=== PATIENT | male | born 1970 | race Caucasian/White ===

== ENCOUNTER 2023-01-21 10:52 | Outpatient (OUT) | payer OTHER, SELFPAY ==
--- NOTE | 2023-01-21 11:06 | ECG_ITS ---
[facility] Test Date: 2023-01-21 Pat Name: REINA MOULTON Department: Room: - Gender: Male Car Hop: : 1970 Requested By: ESCOBAR WILSON Order Number: [id number] Reading MD: HAFSA HEWITT Measurements Intervals [place] Rate: 70 P: -34 MO: 152 QRS: -29 QRSD: 121 T: 22 QT: 410 QTc: 443 Interpretive Statements SINUS RHYTHM BORDERLINE LEFT AXIS DEVIATION [QRS AXIS < -20] MODERATE INTRAVENTRICULAR CONDUCTION DELAY [110+ ms QRS DURATION] No previous ECG available for comparison Electronically Signed On 01-22-2023 14:33:34 EDT by HAFSA HEWITT
--- NOTE | 2023-01-21 11:56 | P.GSHP_ITS ---
History of Present Illness History of Present Illness Chief complaint: Maxillary Sinusitis Narrative: Patient presents for preadmission testing. The patient reports sinus drainage, sinus pressure, headache, and hearing loss which has been ongoing for quite some time. The patient was originally scheduled for this procedure in October of this year, however the procedure was postponed due to an abnormal EKG and dyspnea on exertion. We are awaiting documentation that the patient has been evaluated for these problems. The patient denies fever, syncope, dizziness, nausea, vomiting, or any other complaints. Review of Systems ROS Narrative REVIEW OF SYSTEMS: Negative except as stated in HPI, ten or more systems reviewed. Constitutional: No fever , chills, weakness ENT: No sore throat or epistaxis Cardiovascular: No edema, chest pain, palpitations; Admits to shortness of breath with exertion Respiratory: No cough, or wheezing Musculoskeletal: No joint pain or swelling Gastrointestinal: No abdominal pain, constipation, or vomiting Genitourinary: No dysuria or hematuria Neurological: No numbness, tingling, weakness, or headache Psychiatric: No mood changes PFSH PFSH Medical History (Updated 01/21/23 @ 11:33 by Lupe Garcia NP) Surgical History (Updated 01/21/23 @ 11:30 by Lupe Garcia NP) Family History (Updated 01/21/23 @ 11:30 by Lupe Garcia NP) Other Family history of diabetes mellitus Family history of heart disease Family history of hypertension Family history of myocardial infarction Family history of skin cancer Family history of stroke Social History (Updated 01/21/23 @ 11:26 by Lupe Garcia NP) Within the past year, how often did you have a drink containing alcohol: monthly or less Smoking status: Never smoker Non-prescribed substance use: denies use Previous occupational history: [employer] Highest level of school completed/degree received: high school graduate Meds Home Medications and Allergies Home Medications Medication Instructions Recorded Confirmed Type aripiprazole 20 mg tablet 20 mg PO QDAY 01/21/23 01/21/23 History calcium carbonate 600 mg-vitamin 1 tab PO DAILY 01/21/23 01/21/23 History D3 5 mcg (200 unit) tablet (Calcium 600 + D(3)) cholecalciferol (vitamin D3) 1,250 50,000 unit PO .twice weekly 01/21/23 01/21/23 History mcg (50,000 unit) capsule cholecalciferol (vitamin D3) 25 1,000 unit PO DAILY 01/21/23 01/21/23 History mcg (1,000 unit) capsule clonazepam 0.5 mg tablet 0.5 mg PO Q12H 01/21/23 01/21/23 History diphenoxylate-atropine 2.5 1 tab PO Q6H 01/21/23 01/21/23 History mg-0.025 mg tablet (Lomotil) finasteride 5 mg tablet 5 mg PO QDAY 01/21/23 01/21/23 History guselkumab 100 mg/mL subcutaneous mg subcut 01/21/23 History auto-injector (Tremfya) ibuprofen 800 mg tablet (IBU) 800 mg PO Q12H 01/21/23 01/21/23 History imipramine HCl 25 mg tablet 25 mg PO BID 01/21/23 01/21/23 History magnesium citrate 100 mg capsule 100 mg PO DAILY 01/21/23 01/21/23 History metaxalone 800 mg tablet 800 mg PO TID 01/21/23 01/21/23 History mirabegron 50 mg tablet,extended 50 mg PO Q24H 01/21/23 01/21/23 History release 24 hr (Myrbetriq) potassium gluconate 595 mg (99 mg) 595 mg PO DAILY 01/21/23 01/21/23 History tablet solifenacin 10 mg tablet 5 mg PO QDAY 01/21/23 01/21/23 History tamsulosin 0.4 mg capsule 0.4 mg PO Q24H 01/21/23 01/21/23 History Allergies Allergy/AdvReac Type Severity Reaction Status Date / Time No Known Drug Allergies Allergy Verified 01/21/23 11:17 Exam Narrative Exam Narrative: Constitutional: Awake, alert, comfortable, well-appearing, nontoxic, interactive, vital signs as charted Head: Normocephalic, atraumatic Eyes: Conjunctiva and lids normal to inspection, pupils normal ENT: Naris congested bilaterally, posterior oropharynx clear, oral mucosa moist Neck: Supple, normal appearance, normal range of motion, no meningeal signs, no lymphadenopathy Respiratory: No respiratory distress, breath sounds clear Cardiovascular: Regular rate and rhythm, strong and regular heart tones Musculoskeletal: Normal gait, no swelling or edema Skin: No rashes or induration, no lesions, only visible skin inspected Neuro: No neurological deficits, normal sensation Psychiatric: Oriented ?3, Flat affect Assessment and Plan Assessment and Plan (1) Deviated septum: (2) Chronic maxillary sinusitis: (3) Nasal turbinate hypertrophy: Plan Bilateral middle meatus antrostomy, bilateral inferior turbinate submucosal resection, possible septoplasty scheduled with Dr. Salazar 02/01/2023.
[2023-01-21 12:28] LABS: Anion Gap 10.6; BUN Creatinine Ratio 12.5; Calcium 8.8 mg/dL (8.5-10.1); Carbon Dioxide 31.4 mmol/L (21.0-32.0); Chloride 103 mmol/L (98-107); Estimated GFR (African America >60 (>=60); Estimated GFR (Non-African Ame >60 (>=60); Glucose 99 mg/dL (74-106); Sodium 141 mmol/L (136-145)
[2023-01-21 12:32] LABS: Basophils Percent Auto 0.4 % (0.2-2.0); Eosinophils Absolute Auto 0.6 10^3/uL (0.0-0.7); Eosinophils Percent Auto 6.1 % (0.9-7.0); Hematocrit 35.5 % (42.0-54.0); Immature Granulocytes Abs Auto 0.04 10^3/uL (0.00-0.03); Immature Granulocytes Pct Auto 0.4 % (0.0-0.5); Lymphocytes Absolute Auto 1.5 10^3/uL (1.2-3.8); Lymphocytes Percent Auto 15.7 % (20.5-60.0); Mean Corpuscular Hemoglobin 23.9 pg (25.9-34.0); Monocytes Absolute Auto 0.7 10^3/uL (0.3-0.8); Monocytes Percent Auto 7.1 % (1.7-12.0); Neutrophils Absolute Auto 6.8 10^3/uL (1.4-6.5); Neutrophils Percent Auto 70.3 % (43.0-75.0); Platelet Count 405 10^3/uL (150-450); Red Blood Count 4.61 10^6/uL (4.70-6.10); Red Cell Distribution Width 15.9 % (11.0-15.0); White Blood Count 9.6 10^3/uL (4.0-11.0)
== END 2023-01-21 10:53 | disposition home or self-care (01) ==
PROVIDERS: Otolaryngology; PCP Internal Medicine
DX: Z01.812 Encounter for preprocedural laboratory examination (principal); Z01.810 Encounter for preprocedural cardiovascular examination; Z01.818 Encounter for other preprocedural examination; J32.0 Chronic maxillary sinusitis; E11.9 Type 2 diabetes mellitus without complications
CPT/HCPCS: 36415; 80048; 85025; 93005; G0463

== ENCOUNTER 2023-03-04 11:35 | Outpatient (OUT) | payer OTHER, SELFPAY ==
[2023-10-07 09:42] LABS: QuantiFERON-TB Gold Plus NEGATIVE
== END 2023-03-04 11:36 | disposition home or self-care (01) ==
LOC: LAB 11:36
PROVIDERS: PCP Internal Medicine
DX: L40.0 Psoriasis vulgaris (principal); Z79.899 Other long term (current) drug therapy
CPT/HCPCS: 36415; 86480

== ENCOUNTER 2023-03-15 09:07 | Outpatient (OUT) | payer OTHER, SELFPAY ==
[2023-03-15 09:37] LABS: Anion Gap 11.5; BUN Creatinine Ratio 13.3; Calcium 8.5 mg/dL (8.5-10.1); Chloride 96 mmol/L (98-107); Estimated GFR (African America >60 (>=60); Estimated GFR (Non-African Ame >60 (>=60); Glucose 385 mg/dL (74-106); Potassium 3.5 mmol/L (3.5-5.1); Sodium 133 mmol/L (136-145)
== END 2023-03-15 09:08 | disposition home or self-care (01) ==
LOC: LAB 09:07
PROVIDERS: PCP Internal Medicine; Visit Provider Nurse Practitioner
DX: I10 Essential (primary) hypertension (principal)
CPT/HCPCS: 36415; 80048

== ENCOUNTER 2023-03-23 10:12 | Outpatient (OUT) | payer OTHER, SELFPAY ==
[2023-03-25 11:09] LABS: QuantiFERON-TB Gold Plus Negative (Negative)
== END 2023-03-23 10:13 | disposition home or self-care (01) ==
LOC: LAB 10:13
PROVIDERS: PCP Internal Medicine
DX: L40.0 Psoriasis vulgaris (principal); Z79.899 Other long term (current) drug therapy
CPT/HCPCS: 36415; 86480

== ENCOUNTER 2023-04-07 09:13 | Outpatient (OUT) | payer OTHER, SELFPAY | END 2023-04-07 09:14 | disposition home or self-care (01) | LOC: PST 09:13 | PROVIDERS: PCP Internal Medicine; Visit Provider Otolaryngology | DX: Z01.818 Encounter for other preprocedural examination (principal); J32.0 Chronic maxillary sinusitis; E11.9 Type 2 diabetes mellitus without complications ==

== ENCOUNTER 2023-04-12 07:38 | Day surgery (SDC) | payer OTHER, SELFPAY ==
[2023-04-12] VITALS (10 sets, daily range): BP systolic 109–148; BP diastolic 43–84; PULSE 80–96; RESP 12–22; TEMP 36.2–36.3; O2SAT 93–97; BMI 46.5
--- NOTE | 2023-04-12 | OP_ITS ---
OPERATION DATE: ??04/12/2023 PRIMARY CARE PHYSICIAN:? Kuldeep Durant M.D. SURGEON:? Prerna Salazar M.D. PREOPERATIVE DIAGNOSIS:? Bilateral chronic maxillary sinusitis and inferior turbinate hypertrophy. POSTOPERATIVE DIAGNOSIS:? Bilateral chronic maxillary sinusitis and inferior turbinate hypertrophy.\ PROCEDURE:? Bilateral maxillary antrostomy and bilateral inferior turbinate submucosal resection. ANESTHESIA:? General endotracheal. COMPLICATIONS:? None. FINDINGS:? Grossly normal maxillary sinus anatomy and bilateral inferior turbinate hypertrophy. INDICATIONS:? This 52-year-old man presented with chronic nasal obstruction and chronic maxillary sinusitis, unresponsive to aggressive medical management. PROCEDURE:? Patient identified in the holding area and taken back to the OR where he was placed in a supine position.? After induction of general endotracheal anesthesia, the table was turned, the head elevated 20 degrees and the face draped in a sterile fashion.? Afrin soaked pledgets were placed in each side of the nose and, after waiting adequate time for decongestion, the nose was copiously irrigated with normal saline.? Attention was then turned to the right maxillary sinus.? The right side of the nose was approached with the nasal endoscope and lidocaine 1% with 1:100,000 epinephrine injected into the middle turbinate, lateral nasal wall.? Same was done on the left.? After waiting adequate time for hemostasis, the right nose was re-approached with the nasal endoscope.? A curved scissor to the right was used to incise the inferior portion of the middle turbinate.? The posterior root of the turbinate was prophylactically cauterized to minimize the risk of postoperative bleeding, and the uncinate process was then incised with the sickle knife.? The uncinate process was then removed with an ethmoid forcep, and the natural ostium of the maxillary sinus was identified with a Arvind seeker.? The antrostomy was opened posteriorly with a straight cutting forcep and inferiorly with a side biting forcep.? The nose was then copiously irrigated.? The right inferior turbinate was then injected with lidocaine 1% with 1:100,000 epinephrine.? While awaiting hemostasis, attention was turned to the left maxillary sinus and the same procedure performed as it had been on the right.? Once completed, the left inferior turbinate was also injected with lidocaine 1% with 1:100,000 epinephrine.? Then, on the right side of the nose, a stab incision was made inferior turbinate, and a caudal elevator used to create a tunnel along the medial surface of the turbinate bone.? A 2.0 mm microdebrider blade was then used to exenterate the submucosal tissues of the turbinate.? The turbinate was then outfractured with a long nasal speculum.? Attention was turned to the left inferior turbinate and the same procedure performed.? The nose was then copiously irrigated and the patient was awakened and taken to the recovery room in good condition. LUIS ANGEL
--- NOTE | 2023-04-12 | OP_ITS ---
OPERATION DATE: ??04/12/2023 SURGEON:? Prerna Salazar M.D. PREOPERATIVE DIAGNOSIS:? Chronic maxillary sinusitis and bilateral inferior turbinate hypertrophy. POSTOPERATIVE DIAGNOSIS:? Chronic maxillary sinusitis and bilateral inferior turbinate hypertrophy. PROCEDURE:? Bilateral maxillary antrostomy and bilateral inferior turbinate submucosal resection. ANESTHESIA:? General endotracheal. COMPLICATIONS:? None. FINDINGS:? Bilateral nasal obstruction secondary to inferior turbinate hypertrophy and grossly normal sinus anatomy. INDICATIONS:? This 52-year-old man presented with chronic maxillary sinusitis and nasal obstruction, unresponsive to aggressive medical management. PROCEDURE:? Patient identified in the holding area and taken back to the OR where he was placed in a supine position.? After induction of general endotracheal anesthesia, the table was turned, the head elevated 20 degrees and the face draped in a sterile fashion.? Afrin soaked pledgets were placed in each side of the nose and, after waiting adequate time for decongestion, the nose was copiously irrigated bilaterally.? Attention was then turned to the right nose.? The nose was approached with the nasal endoscope and lidocaine 1% with 1:100,000 epinephrine injected into the middle turbinate and lateral nasal wall.? The same was done on the left.? After waiting adequate time for hemostasis, the right nose was re-approached with the nasal endoscope.? A curved scissor to the right was used to incise the inferior portion of the middle turbinate and the posterior root of the turbinate was prophylactically cauterized, minimizing the risk of postoperative bleeding.? Then, the uncinate process was incised with a sickle knife and removed with an ethmoid forcep.? The natural ostium of the maxillary sinus was identified with a Marvell seeker and opened posteriorly with a straight cutting forcep and inferiorly with a side biting forcep.? The maxillary sinus was then irrigated, and attention turned to the left nose, where the same procedure was performed.? Then, lidocaine 1% with 1:100,000 epinephrine was injected into each inferior turbinate.? After waiting adequate time for hemostasis, attention was turned to the right nose.? A stab incision was made anterior and a caudal elevator used to create a tunnel along the media surface of the turbinate bone.? A 2.0 mm microdebrider was then used exenterate the submucosal tissues of the turbinate, and the turbinate was then outfractured with the long nasal speculum.? Attention was turned to the left nose and the same procedure performed.? Both sides of the nose were then copiously irrigated again, and the patient was awakened and taken to the recovery room in good condition. LUIS ANGEL
[2023-04-12 08:02] LABS: Glucometer 292 mg/dL (74-106)
[2023-04-12] MEDS: LACTATED RINGER'S SOLUTION 1,000 ML 50 ML IV (08:12)
[2023-04-12] MEDS: LIDOCAINE HCL 1%-EPINEPHRINE 1:100,000 20 ML MDV INJ (10:23)
--- NOTE | 2023-04-12 12:09 | PC.NURSE ---
Cottonoids bilateral nares; no active nasal drainage noted
--- NOTE | 2023-04-12 12:16 | PC.NURSE ---
Cottonoids removed by Dr. Salazar; no active nasal drainage noted; ENT ice pack across bridge of nose
--- NOTE | 2023-04-12 12:20 | PC.NURSE ---
no active nasal drainage noted
--- NOTE | 2023-04-12 12:23 | PC.NURSE ---
no active nasal drainage noted
--- NOTE | 2023-04-12 12:34 | PC.NURSE ---
no active nasal drainage noted
== END 2023-04-12 13:12 | disposition home or self-care (01) ==
PROVIDERS: PCP Internal Medicine; Visit Provider Otolaryngology
PROC: (CPT 30140; principal; 2023-04-12 08:50)
DX: J32.0 Chronic maxillary sinusitis (principal); J34.2 Deviated nasal septum; J34.3 Hypertrophy of nasal turbinates; E11.9 Type 2 diabetes mellitus without complications
CPT/HCPCS: 30140; 31267; 36415; 36416; 82948; 88304; 88305; 88311; J2704

== ENCOUNTER 2023-05-20 11:35 | Outpatient (OUT) | payer OTHER, SELFPAY ==
[2023-05-20 12:03] LABS: Alanine Aminotransferase 36 U/L (16-63); Albumin Globulin Ratio 0.9; Albumin Level 3.4 g/dL (3.4-5.0); Alkaline Phosphatase 136 U/L (46-116); Aspartate Amino Transferase 19 U/L (15-37); Bilirubin Direct 0.1 mg/dL (0.0-0.2); Bilirubin Total 0.4 mg/dL (0.2-1.0); Chol HDL Ratio 3.3; Cholesterol 117 mg/dL (<=200); Globulin 3.7 g/dL; HDL Cholesterol 35 mg/dL (40-60); Total Protein 7.1 g/dL (6.4-8.2); Triglycerides 172 mg/dL (<=150); VLDL CHOLESTEROL 34.4 mg/dL
== END 2023-05-20 11:36 | disposition home or self-care (01) ==
LOC: LAB 11:35
PROVIDERS: PCP Internal Medicine; Visit Provider Nurse Practitioner
DX: E78.00 Pure hypercholesterolemia, unspecified (principal)
CPT/HCPCS: 36415; 80061; 80076

== ENCOUNTER 2023-05-23 12:57 | Outpatient (OUT) | payer OTHER, SELFPAY ==
[2023-05-23 13:26] LABS: Anion Gap 12.7; BUN Creatinine Ratio 13.2; Calcium 8.5 mg/dL (8.5-10.1); Carbon Dioxide 30.3 mmol/L (21.0-32.0); Chloride 96 mmol/L (98-107); Estimated GFR (African America >60 (>=60); Estimated GFR (Non-African Ame >60 (>=60); Glucose 427 mg/dL (74-106); Sodium 135 mmol/L (136-145)
== END 2023-05-23 12:58 | disposition home or self-care (01) ==
LOC: LAB 12:59
PROVIDERS: PCP Internal Medicine; Visit Provider Internal Medicine Cardiovascular Disease
DX: I10 Essential (primary) hypertension (principal)
CPT/HCPCS: 36415; 80048

== ENCOUNTER 2023-10-04 19:02 | Emergency (ER) | payer OTHER, SELFPAY ==
[2023-10-04 19:06] VITALS: BP 136/69; PULSE 76; RESP 16; TEMP 37.1; O2SAT 97; BMI 43.0
--- OUTSIDE RECORDS SUMMARY | 2023-10-04 19:10 | XMS_ITS | CCD ---
Author Organization [facility] Care Team Providers Care Penology Professor Name Role Phone MD Kuldeep Barrett Primary Care Provider [phone] MD Reed Helm Attending Provider Reed Helm Unavailable MD Kuldeep Barrett Primary Care Provider MD Reed Helm Attending Provider STEVE, DR CODY Admitting Unavailable TIMMIS, DR CODY Attending Unavailable NADERER, DR KULDEEP Luna Primary Care Unavailable NADERER, DR KULDEEP Luna Admitting Unavailable NADERER, DR KULDEEP Luna Attending Unavailable NADERER, DR KULDEEP Luna Consulting Unavailable NADERER, DR KULDEEP Luna Primary Care Unavailable TIMMIS, DR CODY Admitting Unavailable TIMMIS, DR CODY Attending Unavailable NADERER, DR KULDEEP Luna Primary Care Unavailable TIMMIS, DR CODY Consulting Unavailable ZIEBER, DR SINTIA Rosen Consulting Unavailable TIMMIS, DR CODY Admitting Unavailable TIMMIS, DR CODY Attending Unavailable TIMMIS, DR CODY Consulting Unavailable NADERER, DR KULDEEP Luna Primary Care Unavailable ZIEBER, DR SINTIA Rosen Consulting Unavailable NADERER, DR KULDEEP Luna Primary Care Unavailable NADERER, DR KULDEEP Luna Admitting Unavailable NADERER, DR KULDEEP Luna Attending Unavailable NADERER, DR KULDEEP Luna Consulting Unavailable NADERER, DR KULDEEP Luna Primary Care Unavailable HAY ., DR COOK Admitting Unavailable HAY ., DR COOK Attending Unavailable HARMANEBYULIA, DR SINTIA Rosen Consulting Unavailable ALBA ., DR COOK Consulting Unavailable NESTOR, DR REINA Rosen Attending Unavailable NESTOR, DR REINA Rosen Admitting Unavailable KETTYEREJessika, DR KULDEEP Luna Primary Care Unavailable NESTOR, DR REINA Rosen Consulting Unavailable SOTO OSHEA Consulting Unavailable TIMMIS, DR CODY Consulting Unavailable TIMMIS, DR CODY Admitting Unavailable TIMMIVeronica, DR CODY Attending Unavailable NADEREJessika, DR KULDEEP Luna Primary Care Unavailable FESTUS ZAVALETA Consulting Unavailable JAMILA MA Consulting Unavailable ESCOBAR WILSON JR Attending Unavailable NO FAMILY PHYSICIAN, 837 Primary Care Unavail able JOSEPHINE GODFREY Attending Unavailable ESCOBAR WILSON Attending Unavailable Blaine Lopez DO Primary Care Provider BLAINE LOPEZ Attending Unavailable BLAINE LOPEZ Referring Unavailable BLAINE LOPEZ Primary Care Unavailable BLAINE LOPEZ Referring Unavailable BLAINE LOPEZ Primary Care Unavailable Tor Willett Attending Unavailab Tor Piper Admitting Unavailab Kuldeep Taylor Primary Care Unavailable FLORA CARO Attending Unavailable HAYES LAWSON Attending Unavailable HAYES LAWSON Attending Unavailable Medications Current Medications Medication Drug Class(es) Dates Sig (Normalized) Sig (Original) amylase 831070 unt / lipase 74320 unt / protease [id number] unt delayed release oral capsule (3 sources) Start: 08-02-2023 vozgug-mhlspdkl-wjuhd se 40,000-126,000- 168,000 unit capsule,delayed release(DR/EC) Indications: Exocrine pancreatic insufficiency Take 1 Capful by mouth in the morning and 1 Capful at noon and 1 Capful in the evening. Take with meals. 270 capsule 1 08/02/2023 Active Start: 07-04-2023 End: 08-02-2023 take 1 capsule by mouth at mealtime oroxob-uyrtjqqu-snddour (ZENPEP) 25,000-79,000- 105,000 unit capsule,delayed release(DR/EC) Indications: Exocrine pancreatic insufficiency take 1 capsule by mouth IN THE MORNING AT NOON and IN THE EVENING ( take with meals ) 90 capsule 2 07/04/2023 08/02/2023 Discontinued (Dose adjustment) ARIPiprazole 15 mg oral tablet (3 sources) Atypical Antipsychotic Start: 04-10-2023 take 1 tablet by mouth in the morning ARIPiprazole (ABILIFY) 15 mg tablet Take 1 tablet (15 mg total) by mouth in the morning. 0 04/10/2023 Active ARIPiprazole Act rhett atorvastatin 40 mg oral tablet (3 sources) HMG-CoA Reductase Inhibitor Start: 03-04-2023 End: 08-07-2024 take 1 tablet by mouth in the morning atorvastatin (LIPITOR) 40 mg tablet Indications: Hypercholesterolemia Take 1 tablet (40 mg total) by mouth in the morning. 90 tablet 1 08/08/2023 08/07/2024 Active atropine sulfate 0.025 mg / diphenoxylate hydrochloride 2.5 mg oral tablet (2 sources) Anticholinergic, Cholinergic Muscarinic Antagonist, Antidiarrheal Start: 05-26-2023 take 1 tablet by mouth once daily as needed for diarrhea diphenoxylate-atropine (LOMOTIL) 2.5-0.025 mg per tablet Indications: Exocrine pancreatic insufficiency Take 1 tablet by mouth daily as needed for diarrhea. 0 05/26/2023 Active Betamethasone (1 source) Corticosteroid Betamethasone Ac tive blood-glucose meter kit (2 sources) Start: 05-08-2023 blood-glucose meter kit Indications: Type 2 diabetes mellitus without complication, without long-term current use of insulin ([facility]) Use daily as instructed 1 each 0 05/08/2023 Active Calcium Citrate (3 sources) take 600 mg by mouth once daily CALCIUM CITRATE ORAL Take 600 mg by mouth daily. 0 Active Calcium Citrate Active cholecalciferol 0.025 mg oral capsule (3 sources) Vitamin D Start: 02-02-2023 End: 08-08-2023 take 1 capsule by mouth in the morning cholecalciferol, vitamin D3, 25 mcg (1,000 unit) capsule Indications: Psoriasis Take 1 capsule (1,000 Units total) by mouth in the morning. 90 capsule 1 08/08/2023 Active Clobetasol (1 source) Corticosteroid Clobetasol Propionate Active desmopressin (1 source) Vasopressin Analog, Factor VIII Activator Desmopressin Acetate Active Diphenoxylate-Atropi ne (1 source) Diphenoxylate-At ropi ne Active finasteride 5 mg oral tablet (3 sources) 5-alpha Reductase Inhibitor Start: 03-10-2020 finasteride (PROSCAR) 5 mg tablet Finasteride Acti ve glipiZIDE (1 source) Sulfonylurea glipiZIDE Active hydroCHLOROthiazide 25 mg oral tablet (2 sources) Thiazide Diuretic Start: 2022 End: 2023 take 1 tablet by mouth once daily hydroCHLOROthiazide (HYDRODIURIL) 25 mg tablet Take 1 tablet (25 mg total) by mouth daily. 90 tablet 3 03/04/2023 03/03/2024 Active ibuprofen 800 mg oral tablet (3 sources) Nonsteroidal Anti-inflammatory Drug take 1 tablet by mouth every six hours as needed for pain ibuprofen (ADVIL,MOTRIN) 800 mg tablet Take 1 tablet (800 mg total) by mouth every 6 (six) hours as needed for pain. 0 Active Ibuprofen Active imipramine hydrochloride 25 mg oral tablet (3 sources) Tricyclic Antidepressant Start: 11-15-2021 imipramine (TOFRANIL) 25 mg tablet Imipramine HCl N ot-Taking 3 ml insulin glargine 100 unt/ml / lixisenatide 0.033 mg/ml pen injector (3 sources) Insulin Analog Start: 08-02-2023 insulin glargi ne-lixisenatide (SOLIQUA 100/33) 100 unit-33 mcg/mL insulin pen Indications: Type 2 diabetes mellitus without complication, without long-term current use of insulin ([facility]) Inject 54 Units under the skin daily with breakfast. 90 mL 1 08/02/2023 Active Start: 07-05-2023 End: 08-02-2023 insulin glargine-lixisenatid e (SOLIQUA 100/33) 100 unit-33 mcg/mL insulin pen Indications: Type 2 diabetes mellitus without complication, without long-term current use of insulin ([facility]) Inject 40 Units under the skin daily with breakfast. 0 08/02/2023 08/02/2023 Discontinued lisinopril 5 mg oral tablet (3 sources) Angiotensin Converting Enzyme Inhibitor Start: 03-15-2023 End: 08-07-2024 take 1 tablet by mouth in the morning lisinopriL (PRINIVIL,ZESTRIL) 5 mg tablet Indications: Primary hypertension Take 1 tablet (5 mg total) by mouth in the morning. 90 tablet 1 08/08/2023 08/07/2024 Active Magnesium (1 source) Magnesium Active magnesium oxide 400 mg oral capsule (2 sources) take 1.25 capsules by mouth in the morning magnesium oxide 400 mg magnesium capsule Take 1.25 capsules (500 mg total) by mouth in the morning. 0 Active meloxicam (1 source) Nonsteroidal Anti-inflammatory Drug Meloxicam Active metaxalone 800 mg oral tablet (2 sources) Start: 06-15-2023 take 1 tablet by mouth three times daily as needed for muscle spasms metaxalone (SKELAXIN) 800 mg tablet Indications: Spinal stenosis of lumbar region without neurogenic claudication Take 1 tablet (800 mg total) by mouth 3 (three) times a day as needed for muscle spasms. 90 tablet 0 06/15/2023 Active Methocarbamol (1 source) Muscle Relaxant Methocarbamol Ac tive 24 hr mirabegron 50 mg extended release oral tablet (2 sources) beta3-Adrenergic Agonist Start: 03-07-2023 take 1 tablet by mouth every twenty-four hours in the morning mirabegron (MYRBETRIQ) 50 mg tablet extended release 24 hr Take 1 tablet (50 mg total) by mouth in the morning. 90 tablet 3 03/07/2023 Active Multivitamin preparation (1 source) Multi Vitamin Ac tive potassium gluconate 2.5 meq oral tablet (3 sources) take 1 tablet by mouth in the morning potassium 99 mg tablet Take 1 tablet (99 mg total) by mouth in the morning. 0 Active Potassium Glucon ate Active risankizumab-rzaa (SKYRIZI) 150 mg/mL pen injector (2 sources) Start: 03-29-2023 risankizumab-rzaa (SKYRIZI) 150 mg/mL pen injector Inject 150 mg under the skin. 0 03/29/2023 Active sertraline 50 mg oral tablet (3 sources) Serotonin Reuptake Inhibitor Start: 04-24-2023 End: 08-08-2023 take 1 tablet by mouth in the morning sertraline (ZOLOFT) 50 mg tablet Indications: Bipolar 1 disorder, depressed (CMS-HCC) Take 1 tablet (50 mg total) by mouth in the morning. 90 tablet 0 08/08/2023 Active solifenacin succinate 10 mg oral tablet (2 sources) Cholinergic Muscarinic Antagonist Start: 11-16-2022 take 1 tablet by mouth in the morning solifenacin (VESICARE) 10 mg tablet Take 1 tablet (10 mg total) by mouth in the morning. 90 tablet 3 11/16/2022 Active tamsulosin hydrochloride 0.4 mg oral capsule (3 sources) alpha-Adrenergic Rosa Start: 03-10-2020 tamsulosin (FLOMAX) 0.4 mg capsule Tamsulosin HCl A ctive Tremfya (1 source) Tremfya Active vitamin b12 1 mg oral tablet (2 sources) Vitamin B12 Start: 06-15-2023 take 1 tablet by mouth in the morning cyanocobalamin (vitamin B-12) 1000 MCG tablet Indications: B12 deficiency Take 1 tablet (1,000 mcg total) by mouth in the morning. 90 tablet 1 06/15/2023 Active Vitamin D3 (1 source) Vitamin D3 Activ e Completed/Discontinued Medications Medication Drug Class(es) Dates Sig (Normalized) Sig (Original) Acetaminophen / HYDROcodone (1 source) Opioid Agonist HYDROcodone-Acet ami nophen Not-Taking cyclobenzaprine (1 source) Muscle Relaxant Cyclobenzaprine HCl Not-Taking fluticasone propionate 0.05 mg/actuat metered dose nasal spray (1 source) Corticosteroid Start: 09-08-2019 take 1 spray(s) nasal route once daily Fluticasone Propionate 50 MCG/ACT 1 spray in each nostril Nasally Once a day for 21 days Aug, Not-Taking LORazepam (1 source) Benzodiazepine LORazepam Not-Taking methylPREDNISolone 4 mg oral tablet (1 source) Corticosteroid Start: 09-08-2019 Medrol (Hieu) 4 MG half of daily dose in the morning with food and the rest at night with food Orally Aug, Not-Taking Problems Active Problems Problem Classification Problem Date Documented Date Episodic/Chronic Anxiety disorders (2 sources) Anxiety; Translations: [Anxiety disorder, unspecified] Onset: 03-04-2023 03-23-2023 Chronic Diabetes mellitus with complications (5 sources) Type 2 diabetes mellitus with hyperglycemia; Translations: [TYPE 2 DM W/HYPERGLYCEMIA] Onset: 11-03-2021 Chronic Diabetes mellitus without complication (9 sources) Type 2 diabetes mellitus without complications; Translations: [Type 2 diabetes mellitus without complication] Onset: 10-16-2022 08-02-2023 Chronic Disorders of lipid metabolism (5 sources) Hypercholesterolemia; Translations: [Pure hypercholesterolemia, unspecified] Onset: 01-04-2023 01-04-2023 Chronic Esophageal disorders (2 sources) Gastroesophageal reflux disease; Translations: [Gastro-esophageal reflux disease without esophagitis] Onset: 01-04-2023 01-04-2023 Chronic Essential hypertension (7 sources) Essential hypertension; Translations: [Essential (primary) hypertension] Onset: 09-28-2021 Resolved: 09-28-2021 Chronic Genitourinary symptoms and ill-defined conditions (3 sources) Intermittent urinary incontinence; Translations: [Unspecified urinary incontinence] Onset: 04-22-2020 08-02-2023 Chronic Mood disorders (5 sources) Depressed bipolar I disorder; Translations: [Bipolar disorder, unspecified] Onset: 01-04-2023 08-02-2023 Chronic Nutritional deficiencies (1 source) Vitamin D deficiency, unspecified; Translations: [VITAMIN D DEFICIENCY UNSPECIFIED] Onset: 05-02-2022 Chronic Nutritional deficiencies (1 source) Cobalamin deficiency; Translations: [Deficiency of other specified B group vitamins] 08-02-2023 Episodic Osteoarthritis (2 sources) Arthritis; Translations: [Unspecified osteoarthritis, unspecified site] Onset: 01-04-2023 01-04-2023 Chronic Other inflammatory condition of skin (3 sources) Psoriasis; Translations: [Psoriasis, unspecified] Onset: 01-04-2023 01-04-2023 Chronic Other nervous system disorders (1 source) Circadian rhythm sleep disorder of shift work type; Translations: [Circadian rhythm sleep disorder, shift work type] Chronic Other nervous system disorders (1 source) Circadian rhythm sleep disorder, shift work type Onset: 09-28-2021 Resolved: 09-28-2021 Chronic Other nutritional; endocrine; and metabolic disorders (1 source) Body mass index 40+ - severely obese; Translations: [Body mass index (BMI) 45.0-49.9, adult] Chronic Other nutritional; endocrine; and metabolic disorders (1 source) Body mass index (BMI) 45.0-49.9, adult Onset: 09-28-2021 Resolved: 09-28-2021 Chronic Other nutritional; endocrine; and metabolic disorders (4 sources) Morbid (severe) obesity due to excess calories; Translations: [MORBID SEVERE OBES D/T EXCESS KAYA] Onset: 11-26-2021 Chronic Other nutritional; endocrine; and metabolic disorders (3 sources) Morbid obesity; Translations: [Morbid (severe) obesity due to excess calories] Onset: 01-27-2017 08-02-2023 Chronic Other upper respiratory disease (1 source) Deviated nasal septum; Translations: [DEVIATED NASAL SEPTUM] Onset: 10-16-2022 Episodic Other upper respiratory disease (1 source) Hypertrophy of nasal turbinates; Translations: [HYPERTROPHY OF NASAL TURBINATES] Onset: 10-16-2022 Episodic Other upper respiratory infections (7 sources) Chronic maxillary sinusitis; Translations: [Other chronic sinusitis] Onset: 09-17-2022 Chronic Peripheral and visceral atherosclerosis (1 source) Peripheral vascular disease, unspecified; Translations: [PERIPHERAL VASCULAR DISEASE UNS] Onset: 11-26-2021 Chronic Residual codes; unclassified (2 sources) Obstructive sleep apnea syndrome; Translations: [Obstructive sleep apnea (adult) (pediatric)] 08-02-2023 Chronic Residual codes; unclassified (3 sources) Sleep apnea; Translations: [Sleep apnea, unspecified] Onset: 01-04-2023 01-04-2023 Chronic Residual codes; unclassified (4 sources) Obstructive sleep apnea (adult) (pediatric); Translations: [Obstructive sleep apnea (adult) (pediatric)] Onset: 09-28-2021 Resolved: 09-28-2021 Chronic Past or Other Problems Problem Classification Problem Date Documented Date Episodic/Chronic E Codes: Natural/environment (1 source) Exposure to other specified factors, initial encounter; Translations: [EXPOSURE OTHER SPEC FACTORS INITIAL] Onset: 11-26-2021 Episodic Mood disorders (2 sources) Mood disorders Onset: 08-02-2023 08-02-2023 Other aftercare (1 source) Other jail (current) drug therapy; Translations: [OTH CORRECTION CURRENT DRUG THERAPY] Onset: 12-30-2021 Episodic Other connective tissue disease (3 sources) Pain in left leg; Translations: [PAIN IN LEFT LEG] Onset: 12-28-2021 Episodic Other connective tissue disease (1 source) Cramp and spasm; Translations: [CRAMP AND SPASM] Onset: 12-30-2021 Episodic Other connective tissue disease (1 source) Pain in left lower leg; Translations: [PAIN IN LEFT LOWER LEG] Onset: 11-26-2021 Episodic Other screening for suspected conditions (not mental disorders or infectious disease) (3 sources) Encounter for screening for malignant neoplasm of prostate; Translations: [Abnormal result of other cardiovascular function study] Onset: 05-02-2022 Episodic Pancreatic disorders (not diabetes) (4 sources) Exocrine pancreatic insufficiency; Translations: [Exocrine pancreatic insufficiency] Onset: 02-13-2023 08-02-2023 Episodic Residual codes; unclassified (1 source) Other specified health status Onset: 09-28-2021 Resolved: 09-28-2021 Episodic Sprains and strains (1 source) Strain of unspecified muscle(s) and tendon(s) at lower leg level, left leg, initial encounter; Translations: [STRAIN UNS MSC TEND LOW LT LEG INIT] Onset: 11-26-2021 Episodic Results Test Name Value Interpretation Reference Range Facility Office Visiton 09-28-2023 Follow-up visit [id number] Reina Moulton Jeremy 1970 M Date Provider Department Center 09/28/2023 Taniya8-HAYES LAWSON Family History Problem Relation Age of Onset Coronary artery disease Father Heart attack Father Family Status - Relation Status Age at Father Level of Service:87356 SD OFFICE/OUTPATIENT ESTABLISHED LOW MDM 20 MIN Normal [facility] COMPREHENSIVE METABOLIC PANE Daljit 08-02-2023 Albumin [Mass/Vol] 3.9 g/dL Normal 3.2-5.3 [facility] Comment on above: Performed By: #### C TARA 89988-1, HA1C #### [facility] ([id number]) [address], [address] [place] [address] ALP [Catalytic activity/Vol] 102 U/L Normal 39-130 [facility] Comment on above: Performed By: #### Dunia PACHECO, 29704-8, HA1C #### [facility] ([id number]) [address], [address] [place] [address] ALT [Catalytic activity/Vol] 27 U/L Normal 0-40 [facility] Comment on above: Performed By: #### Dunia PACHECO 52792-7, HA1C #### [facility] ([id number]) [address], [address] [place] [address] Anion gap [Moles/Vol] 6 mmol/L Normal 5-15 [facility] Comment on above: Performed By: #### C TARA, 72662-4, HA1C #### [facility] ([id number]) [address], [address] [place] [address] AST [Catalytic activity/Vol] 18 U/L Normal 0-41 [facility] Comment on above: Performed By: #### C TARA, 44322-3, HA1C #### [facility] ([id number]) [address], [address] [place] [address] Bilirubin [Mass/Vol] 0.3 mg/dL Normal 0.3-1.2 [facility] Comment on above: Performed By: #### Dunia PACHECO, 63285-1, HA1C #### [facility] ([id number]) [address], [address] [place] [address] Calcium [Mass/Vol] 9.3 mg/dL Normal 8.5-10.5 [facility] Comment on above: Performed By: #### C TARA, 64539-7, HA1C #### [facility] ([id number]) [address], [address] [place] [address] Chloride [Moles/Vol] 100 mmol/L Normal 98-109 [facility] Comment on above: Performed By: #### Dunia PACHECO, 75523-8, HA1C #### [facility] ([id number]) [address], [address] [place] [address] CO2 [Moles/Vol] 31 mmol/L Normal 22-32 [facility] Comment on above: Performed By: #### Dunia PACHECO, 76564-2, HA1C #### [facility] ([id number]) [address], [address] [place] [address] Creatinine [Mass/Vol] 0.85 mg/dL Normal 0.60-1.30 [facility] Comment on above: Result Comment: METH OD TRACEABLE TO IDMS STANDARD Performed By: #### Dunia PACHECO, 33630-0, HA1C #### [facility] ([id number]) [address], [address] [place] [address] eGFR (CKD-EPI) NON-RACE DEPENDENT >90 Normal >59 [facility] Comment on above: Result Comment: Reported eGFR is based on the CKD-EPI 1 equation that does not use a race coefficient. Performed By: #### Davis Duque MP31-1, HA1C #### [facility] ([id number]) [address], [address] [place] [address] Glucose [Mass/Vol] 137 mg/dL High 65-99 [facility] Comment on above: Performed By: #### Davis Duque MP31-1, JESSICA1C #### [facility] ([id number]) [address], [address] [place] [address] Potassium [Moles/Vol] 4.4 mmol/L Normal 3.5-5.0 [facility] Comment on above: Performed By: #### Dunia PACHECO 28607-2, HA1C #### [facility] ([id number]) [address], [address] [place] [address] Protein [Mass/Vol] 6.9 g/dL Normal 6.0-8.0 [facility] Comment on above: Performed By: #### Dunia PACHECO 48520-7, HA1C #### [facility] ([id number]) [address], [address] [place] [address] Sodium [Moles/Vol] 137 mmol/L Normal 134-146 [facility] Comment on above: Performed By: #### Davis Duque MP31-1, HA1C #### [facility] ([id number]) [address], [address] [place] [address] Urea nitrogen [Mass/Vol] 16 mg/dL Normal 5-23 [facility] Comment on above: Performed By: #### Davis Duque MP31-1, HA1C #### [facility] ([id number]) [address], [address] [place] [address] Comprehensive metabolic pane daljit 08-02-2023 Albumin [Mass/Vol] 3.9 g/dL 3.2 - 5.3 g/dL [facility] ALP [Catalytic activity/Vol] 102 U/L 39 - 130 U/L [facility] ALT No additional P-5'-P [Catalytic activity/Vol] 27 U/L 0 - 40 U/L [facility] Anion gap [Moles/Vol] 6 mmol/L 5 - 15 mmol/L [facility] AST [Catalytic activity/Vol] 18 U/L 0 - 41 U/L [facility] Bilirubin [Mass/Vol] 0.3 mg/dL 0.3 - 1.2 mg/dL [facility] Calcium [Mass/Vol] 9.3 mg/dL 8.5 - 10. 5 mg/dL [facility] Chloride [Moles/Vol] 100 mmol/L 98 - 109 mmol/L [facility] CO2 [Moles/Vol] 31 mmol/L 22 - 32 mmol/L [facility] Creatinine [Mass/Vol] 0.85 mg/dL 0.60 - 1.30 mg/dL [facility] Comment on above: METHOD TRACEABLE TO IDHI STANDARD eGFR (CKD-EPI)non-race dependent - PINF [facility] Comment on above: Reported eGFR is based on the CKD-EPI 2020 equation that does not use a race coefficient. Glucose [Mass/Vol] 137 mg/dL High 65 - 99 mg/dL [facility] Potassium [Moles/Vol] 4.4 mmol/L 3.5 - 5.0 mmol/L [facility] Protein [Mass/Vol] 6.9 g/dL 6.0 - 8.0 g/dL [facility] Sodium [Moles/Vol] 137 mmol/L 134 - 146 mmol/L [facility] Urea nitrogen [Mass/Vol] 16 mg/dL 5 - 23 mg/dL [facility] HGB A1C (GLYCO-HGB)on 2023 Glucose [Mass/Vol] 266 mg/dL Normal [facility] Comment on above: Performed By: #### C , 78728-5, HA1C #### [facility] ([id number]) [address], [address] [place] [address] HbA1c (Bld) [Mass fraction] 10.9 % High 4.4-5.6 [facility] Comment on above: Result Comment: NOTE ADA Guidelines Result HgbA1c Normal : less than 5.7 % Prediabetes : 5.7 % to 6.4 % Diabetes : > 6.4 % Use with caution in patients with abnormal hemoglobin variants as the half-life of red blood cells and in vivo glycation rates are affected. Performed By: #### C TARA, 46354-6, HA1C #### [facility] ([id number]) [address], [address] [place] [address] Hemoglobin A1con 08-02-2023 Average glucose Estimated from glycated hemoglobin (Bld) [Mass/Vol] 266 mg/dL [facility] HbA1c (Bld) [Mass fraction] 10.9 % High 4.4 - 5.6 % [facility] Comment on above: NOTE ADA Guidelines Result HgbA1c Normal : less than 5.7 % Prediabetes : 5.7 % to 6.4 % Diabetes : > 6.4 % Use with caution in patients with abnormal hemoglobin variants as the half-life of red blood cells and in vivo glycation rates are affected. Interpretation and review of laboratory results Abnormal [facility] Lipid 1996 panelon Cholesterol [Mass/Vol] 107 mg/dL Low 150 - 200 mg/dL [facility] Cholesterol in HDL [Mass/Vol] 43 mg/dL 39 - PINF mg/dL [facility] Comment on above: HDL <40 mg/dL - High Risk HDL > or = 40mg/dL- Desirable HDL >60 mg/dL - Negative Risk Cholesterol in LDL [Mass/Vol] 45 mg/dL NINF - 130 mg/dL [facility] Comment on above: LDL <100 mg/dL - Desirable LDL >160 mg/dL - High Risk Cholesterol in VLDL [Mass/Vol] 19 mg/dL 0 - 30 mg/dL [facility] Cholesterol.total/C holesterol in HDL [Mass ratio] 2.5 {ratio} 1.0 - 5.0 [facility] Triglyceride [Mass/Vol] 95 mg/dL 27 - 150 mg/dL [facility] Cholesterol [Mass/Vol] 107 mg/dL Low 150-200 [facility] Comment on above: Performed By: #### Dunia PACHECO, 29327-3, HA1C #### [facility] ([id number]) [address] [place] [address], [address] [place] [address] Cholesterol in HDL [Mass/Vol] 43 mg/dL Normal >39 [facility] Comment on above: Result Comment: HDL <40 mg/dL - High Risk HDL > or = 40mg/dL- Desirable HDL >60 mg/dL - Negative Risk Performed By: #### Dunia PACHECO, 64827-1, HA1C #### [facility] ([id number]) [address], [address] [place] [address] Cholesterol in LDL [Mass/Vol] 45 mg/dL Normal <130 [facility] Comment on above: Result Comment: LDL <100 mg/dL - Desirable LDL >160 mg/dL - High Risk Performed By: #### C TARA, 89763-5, HA1C #### [facility] ([id number]) [address], [address] [place] [address] Cholesterol in VLDL [Mass/Vol] 19 mg/dL Normal 0-30 [facility] Comment on above: Performed By: #### Dunia PACHECO, 93811-5, HA1C #### [facility] ([id number]) [address], [address] [place] [address] CHOLESTEROL:HDL 2.5 Normal 1.0-5.0 [facility] Comment on above: Performed By: #### Dunia PACHECO, 29074-8, HA1C #### [facility] ([id number]) [address], [address] [place] [address] Triglyceride [Mass/Vol] 95 mg/dL Normal 27-150 [facility] Comment on above: Performed By: #### Dunia PACHECO, 50376-5, HA1C #### [facility] ([id number]) [address], [address] [place] [address] No Panel Informationon 08-02 Interpretation and review of laboratory results Abnormal [facility] Office Visiton 05-23-2023 Follow-up visit [id number] Reina Moulton Jeremy 1970 M Date Provider Department [facility] Family History Problem Relation Age of Onset Coronary artery disease Father Heart attack Father Family Status - Relation Status Age at Father Level of Service:73229 SD OFFICE/OUTPATIENT ESTABLISHED LOW MDM 20-29 MIN Normal [facility] SURGICAL PATH REPORTon 04-18 SURGICAL PATH REPORT [facility] Department of Pathology [address] [place] [address] Name: REINA MOULTON : 1970 Financial [id number] Number: Gender Male Locatio BAYL SEDRICK : n: Admit 52 years Attending ESCOBAR WILSON JR Age: Provider: Ordering ESCOBAR WILSON JR Provider: Consulti Surgical Pathology Report ng: ACCESSION: COLLECTED DATE/TIME: RECEIVED DATE/TIME: PATHOLOGIST: [id number] 04/12/2023 11:32 EDT 04/13/2023 12:18 EDT TYSHAWN MCDERMOTT, PHANI Final Diagnosis Report for [facility] [place] [place] (A) RIGHT INFERIOR TURBINATE SOCK; EXCISION: - BENIGN UPPER RESPIRATORY TRACT MUCOSA WITH CHRONIC INFLAMMATION. NOTE: Multiple levels were examined. (B) LEFT INFERIOR TURBINATE SOCK; EXCISION: - BENIGN UPPER RESPIRATORY TRACT MUCOSA WITH CHRONIC INFLAMMATION. (C) RIGHT SINUS CONTENT; EXCISION: - BENIGN UPPER RESPIRATORY TRACT MUCOSA WITH MILD CHRONIC INFLAMMATION. - FRAGMENTS OF BONE WITHIN NORMAL LIMITS. (D) LEFT SINUS CONTENT; EXCISION: - BENIGN UPPER RESPIRATORY TRACT MUCOSA WITH MILD CHRONIC INFLAMMATION. - FRAGMENTS OF BONE WITHIN NORMAL LIMITS PHANI VILLAGRAN PATHOLOGIST (Electronic Signature) Date Verified 04/18/2023 Clinical Data PRE-OP DIAGNOSIS: Not specified POST-OP DIAGNOSIS: Chronic maxillary sinusitis PROCEDURES: Bilateral middle meatus antrostomy , bilateral inferior turbinate, submucosal resection SPECIMEN: (A) Right inferior turbinate sock ____ Print 04/18/2023 09:28 EDT Number: Date/Time: [facility] Department of Pathology [address] [place] [phone] [phone] Name: REINA MOULTON : 1970 Financial [id number] Number: Gender Male [facility] : n: Admit 52 years Attending ESCOBAR WILSON JR Age: Provider: Ordering ESCOBAR WILSON JR Provider: Consulti Surgical Pathology Report ng: ACCESSION: COLLECTED DATE/TIME: RECEIVED DATE/TIME: PATHOLOGIST: [id number] 04/12/2023 11:32 EDT 04/13/2023 12:18 EDT TYSHAWN MCDERMOTT, [facility] Clinical Data (B) Left inferior turbinate sock (C) Right sinus content (D) Left sinus content VISIT #[id number] / Surgical outpatient Gross Description (A) Labeled right inferior turbinate sock. Received in formalin in a suction sock are multiple irregular segments of schmid-pink to red soft tissue. The segments have an aggregate dimension of 2.5 x 1.2 x 0.5 cm. The specimen is entirely submitted in one cassette. (B) Labeled left inferior turbinate sock. Received in formalin in a suction sock are multiple segments of schmid-pink to red soft tissue. The segments have an aggregate dimension of 2.5 x 1.4 x 0.5 cm. The specimen is entirely submitted in one cassette. (C) Labeled right sinus contents. Received in formalin are multiple irregular segments of schmid-pink soft and firm to hard tissue. These measure in aggregate 4.5 x 1.1 x 1.0 cm. The largest segment is serially sectioned. The specimen is entirely submitted in one cassette for routine decalcification. (D) Labeled left sinus contents. Received in formalin are multiple irregular segments of schmid-pink to red firm to hard tissue. These measure in aggregate 2.4 x 1.7 x 0.5 cm. The specimen is entirely submitted in one cassette for routine decalcification. MP/sljazmín 04/13/2023 Tissue pathology report for: [facility], [address] [place] [address]; PATHOLOGY SERVICES PROVIDED BY [facility] (CLIA #[id number]) in cooperation with [facility] at [address] [place] [address] (CLIA #[id number]) ____ Print 04/18/2023 09:28 EDT Number: Date/Time: [facility] Department of Pathology [address] [place] [id number] [phone] Name: REINA MOULTON : 1970 Financial [id number] Number: Gender Male Jasmine VINSONEVUE : n: Admit 52 years Attending ESCOBAR WILSON JR Age: Provider: Ordering ESCOBAR WILSON JR Provider: Consulti Surgical Pathology Report ng: ACCESSION: COLLECTED DATE/TIME: RECEIVED DATE/TIME: PATHOLOGIST: [id number] 04/12/2023 11:32 EDT 04/13/2023 12:18 EDT TYSHAWN MCDERMOTT, PHANI Microscopic Diagnosis The final diagnosis is based on a microscopic exam of computer help desk representative sections. Codes CPT CODE: 64388x3 + 74766x5 + 64094 ____ Print 04/18/2023 09:28 EDT Number: Date/Time: [facility] Comment on above: Performed By: #### 9 [id number] #### [facility] Services [address] [place] [id number] [employer] Worker: Marky Stevens MD Orders Onlyon 03-15-2023 Orders Only [id number] Reina Moulton Jeremy 1970 M Date Provider Department Center 03/15/2023 [facility] Family History Problem Relation Age of Onset Coronary artery disease Father Heart attack Father Family Status - Relation Status Age at Father Normal [facility] 37on 03-04-2023 37 Start lipitor/atorvastatin for cholesterol- take in the evening before bed Call office for any muscles aches, joint pain or concerns Have blood test for liver function and lipid profile in 2-3 months Start hydrochlorathiazide 1 tab every morning, goal b/p is 130/80 or less Call office for any concerns Check blood work in 1-2 weeks to check kidney function and electrolytes Normal [facility] Office Visiton 03-04-2023 Follow-up visit [id number] Reina Moulton 1970 M Date Provider Department Center 03/04/2023 FLORA STANLEY [facility] Family History Problem Relation Age of Onset Coronary artery disease Father Heart attack Father Family Status - Relation Status Age at Father Level of Service:89024 SD OFFICE/OUTPATIENT NEW MODERATE MDM 45-59 MINUTES Normal [facility] CBC AUTO DIFFon 10-12-2022 BASO # 0.0 103/ul Normal 0.0-0.1 [facility] Comment on above: Performed By: #### C BC ####[facility] [address] [place] [address]Dr. Akira Thompson Basophils/100 WBC (Bld) 0.4 % Normal 0.2-2.0 [facility] Comment on above: Performed By: #### C BC ####[facility] [address] [place] [address]Dr. Akira Thompson EO # 0.3 103/ul Normal 0.0-0.7 [facility] Comment on above: Performed By: #### C BC ####[facility] [address] [place] [address]Dr. Akira Thompson Eosinophils/100 WBC (Bld) 2.7 % Normal 0.9-7.0 [facility] Comment on above: Performed By: #### C BC ####[facility] [address] [place] [address]Dr. Akira Thompson Erythrocyte distribution width (RBC) [Ratio] 15.4 % Critically high 11.0-15.0 [facility] Comment on above: Performed By: #### C BC ####[facility] [address] [place] [address]Dr. Akira Thompson Hematocrit (Bld) [Volume fraction] 35.1 % Critically low 42.0-54.0 [facility] Comment on above: Performed By: #### C BC ####[facility] [address] [place] [address]Dr. Akira Thompson Hemoglobin (Bld) [Mass/Vol] 10.9 g/dL Critically low 14.0-18.0 [facility] Comment on above: Performed By: #### C BC ####[facility] [address] [place] [address]Dr. Akira Thompson IG # 0.04 10e3/ul Critically high 0.00-0.03 [facility] Comment on above: Performed By: #### C BC ####[facility] [address] [place] [address]Dr. Akira Thompson IG % 0.4 % Normal 0.0-0.5 [facility] Comment on above: Performed By: #### C BC ####[facility] [address] [place] [address]Dr. Akira Thompson LYMPH # 1.6 103/ul Normal 1.2-3.8 [facility] Comment on above: Performed By: #### C BC ####[facility] [address] [place] [address]Dr. Akira hTompson Lymphocytes/100 WBC (Bld) 17.1 % Critically low 20.5-60.0 [facility] Comment on above: Performed By: #### C BC ####[facility] [address] [place] [address]Dr. Akira Thompson MANUAL DIFF REQ NO Normal [facility] Comment on above: Performed By: #### C BC ####[facility] [address] [place], [place] [address]Dr. Akira Thompson MCH (RBC) [Entitic mass] 25.3 pg Critically low 25.9-34.0 [facility] Comment on above: Performed By: #### C BC ####[facility] [address] [place] [id number]. Akira Thompson MCHC (RBC) [Mass/Vol] 31.1 g/dL Normal 29.9-35.2 [facility] Comment on above: Performed By: #### C BC ####[facility] [address] [place] [phone]. Akira Thompson MCV (RBC) [Entitic vol] 81.4 fL Normal 80.0-94.0 [facility] Comment on above: Performed By: #### C BC ####[facility] [address] [place] [id number]. Akira Thompson MONO # 0.8 103/ul Normal 0.3-0.8 [facility] Comment on above: Performed By: #### C BC ####[facility] [address]ogx[address] [place] [id number]. Akira Thompson Monocytes/100 WBC (Bld) 8.1 % Normal 1.7-12.0 [facility] Comment on above: Performed By: #### C BC ####[facility] [address] [place] [id number]. Akira Thompson NEUT # 6.6 103/ul Critically high 1.4-6.5 [facility] Comment on above: Performed By: #### C BC ####[facility] [address] [place] [phone]. Akira Thompson Neutrophils/100 WBC (Bld) 71.3 % Normal 43.0-75.0 [facility] Comment on above: Performed By: #### C BC ####[facility] [address] [place] [phone]. Akira Thompson Platelet mean volume (Bld) [Entitic vol] 8.4 fL Critically low 9.5-13.5 [facility] Comment on above: Performed By: #### C BC ####[facility] [address] [place] [id number]. Akira Jay PLT 378 103/ul Normal 150-450 [facility] Comment on above: Performed By: #### C BC ####[facility] [address] [place] [phone]. Akira Thompson RBC 4.31 106/ul Critically low 4.70-6.10 [facility] Comment on above: Performed By: #### C BC ####[facility] [address] [place] [phone]. Akira Thompson WBC 9.3 103/ul Normal 4.0-11.0 [facility] Comment on above: Performed By: #### C BC ####[facility] [address] [place] [address]Dr. Akira Thompson PROF CHEM 8 (BAS METB)on Anion gap [Moles/Vol] 10.6 mmol/L Normal [facility] Comment on above: Performed By: #### B MP ####[facility] [address]es[address] [place] [address]Dr. Akira Thompson Calcium [Mass/Vol] 9.0 mg/dL Normal 8.5-10.1 [facility] Comment on above: Performed By: #### B MP ####[facility] [address] [place] [address]Dr. Akira Thompson Chloride [Moles/Vol] 104 mmol/L Normal 98-107 [facility] Comment on above: Performed By: #### B MP ####[facility] [address] [place] [phone]. Akira Thompson CO2 [Moles/Vol] 31.6 mmol/L Normal 21.0-32.0 [facility] Comment on above: Performed By: #### B MP ####[facility] [address]un[address] [place] [address]Dr. Akira Thompson Creatinine [Mass/Vol] 0.77 mg/dL Normal 0.70-1.30 [facility] Comment on above: Performed By: #### B MP ####[facility] [address] [place] [phone]. Akira Thompson EGFR-AF CAMBODIAN >60 Normal >=60 [facility] Comment on above: Performed By: #### B MP ####[facility] [address] [place] [phone]. Akira Thompson EGFR-NON AF CAMBODIAN >60 Normal >=60 [facility] Comment on above: Performed By: #### B MP ####[facility] [address] [place] [address]Dr. Akira Thompson Glucose [Mass/Vol] 83 mg/dL Normal 74-106 [facility] Comment on above: Performed By: #### B MP ####[facility] [address]teau[address] [place] [address]Dr. Akira Thompson Potassium [Moles/Vol] 4.2 mmol/L Normal 3.5-5.1 [facility] Comment on above: Performed By: #### B MP ####[facility] [address] [place], [place] [address]Dr. Akira Thompson Sodium [Moles/Vol] 142 mmol/L Normal 136-145 [facility] Comment on above: Performed By: #### B MP ####[facility] [address] [place], [place] [address]Dr. Akira Thompson Urea nitrogen [Mass/Vol] 13.0 mg/dL Normal 7.0-18.0 [facility] Comment on above: Performed By: #### B MP ####[facility] [address] [place], [place] [address]Dr. Akira Thompson Urea nitrogen/Creatinine [Mass ratio] 16.9 mg/mg Normal [facility] Comment on above: Performed By: #### B MP ####[facility] [address] [place], [place] [address]Dr. Akira Thompson PROTIMEon 10-12-2022 INR Coag (PPP) [Relative time] 0.93 {INR} Normal [facility] Comment on above: Performed By: #### P TT, PT ####[facility] [address] [place], [place] [address]Dr. Akira Thompson INR GUIDELINES SEE BELOW Normal [facility] Comment on above: Result Comment: LITA RED INR: 2.0 - 3.0 CONDITIONS NOT LISTED BELOW 2.5 - 3.5 FOR PROSTHETIC HEART VALVE REPLACEMENT 2.5 - 3.5 RECURRENT THROMBOSIS Performed By: #### P TT, PT ####[facility] [address] [place], [place] [address]Mb. Akira Thompson PT Coag (PPP) [Time] 9.9 s Normal 9.0-11.6 [facility] Comment on above: Performed By: #### P TT, PT ####[facility] [address] [place], [place] [address]Sq. Akira Thompson PTTon 10-12-2022 aPTT Coag (Bld) [Time] 27.3 s Normal 22.3-36.2 [facility] Comment on above: Performed By: #### P TT, PT ####[facility] [address] [place], [place] [address]Mh. Akira [address] CT SINUSES WO CONon 09-18-19 CT SINUSES WO CON EXAMINATION: CT SINU SES WO CON HISTORY: Chronic sinusitis , runny nose, postnasal drip COMPARISON: CT sinuses 11/16/2012 TECHNIQUE: Axial and Coronal CT images were created without IV contrast. Dose reduction techniques were achieved by using automated exposure control and/or adjustment of mA and/or kV according to patient size and/or use of iterative reconstruction technique. FINDINGS: MAXILLARY SINUSES: Trace amount of mucosal thickening bilaterally. Infundibula are patent. No significant anomalous inferior orbital ethmoid (Dean) air cells. ETHMOID SINUSES: Trace amount of mucosal thickening. Fovea ethmoidali and lamina papyracea are symmetric and intact. SPHENOID SINUSES: No significant mucosal thickening or fluid. Sphenoethmoidal recesses are patent. No bony dehiscence. FRONTAL SINUSES: Trace amount of mucosal thickening. Frontal recesses are patent. NASAL FOSSA: No significant deviation of the nasal septum. No toy bullosa or paradoxical turbinates are identified. OTHER: Negative. Limited views of the skull base and orbits are unremarkable. IMPRESSION: 1. Trace amount of mucosal thickening scattered within the paranasal sinuses suggesting mild chronic sinusitis. Electronically authenticated by: SINTIA JIMENEZ Date: 2022-09-17 10:40 Normal [facility] XR SINUSES 3 VIEWS OR GREATE Jorge 08-11-2022 XR SINUSES 3 VIEWS OR GREATER EXAMINATION: XR SINUSES 3 VIEWS OR GREATER HISTORY: Chronic sinusitis COMPARISON: No relevant comparison available. FINDINGS: MAXILLARY: Mucosal thickening within left maxillary sinus. ETHMOID: No mucosal thickening or fluid level. FRONTAL: No mucosal thickening or fluid level. SPHENOID: No mucosal thickening or fluid level. OTHER: Negative. IMPRESSION: 1. Suspect mild chronic sinusitis predominantly involving the left maxillary sinus. 2. No fluid levels to suggest acute sinusitis. Electronically authenticated by: SINTIA JIMENEZ Date: 2022-08-11 16:43 Normal [facility] CBC AUTO DIFFon 04-28-2022 BASO # 0.0 103/ul Normal 0.0-0.1 [facility] Comment on above: Performed By: #### C BC #### [facility] [address] [place] [address] Dr. Akira Thompson Basophils/100 WBC (Bld) 0.4 % Normal 0.2-2.0 [facility] Comment on above: Performed By: #### C BC #### [facility] [address] [place] [address] Dr. Akira Thompson EO # 0.2 103/ul Normal 0.0-0.7 [facility] Comment on above: Performed By: #### C BC #### [facility] [address] [place] [address] Dr. Akira Thompson Eosinophils/100 WBC (Bld) 2.1 % Normal 0.9-7.0 [facility] Comment on above: Performed By: #### C BC #### [facility] [address] [place] [address] Dr. Akira Thompson Erythrocyte distribution width (RBC) [Ratio] 14.9 % Normal 11.0-15.0 [facility] Comment on above: Performed By: #### C BC #### [facility] [address] [place] [address] Dr. Akira Thompson Hematocrit (Bld) [Volume fraction] 35.4 % Critically low 42.0-54.0 [facility] Comment on above: Performed By: #### C BC #### [facility] [address] [place] [address] Dr. Akira Thompson Hemoglobin (Bld) [Mass/Vol] 11.0 g/dL Critically low 14.0-18.0 [facility] Comment on above: Performed By: #### C BC #### [facility] [address] [place] [address] Dr. Akira Thompson IG # 0.03 10e3/ul Normal 0.00-0.03 [facility] Comment on above: Performed By: #### C BC #### [facility] [address] [place] [address] Dr. Akira Thompson IG % 0.3 % Normal 0.0-0.5 [facility] Comment on above: Performed By: #### C BC #### [facility] [address] [place] [address] Dr. Akira Thompson LYMPH # 1.6 103/ul Normal 1.2-3.8 [facility] Comment on above: Performed By: #### C BC #### [facility] [address] [place] [address] Dr. Akira Thompson Lymphocytes/100 WBC (Bld) 16.9 % Critically low 20.5-60.0 [facility] Comment on above: Performed By: #### C BC #### [facility] [address] [place] [address] Dr. Akira Thompson MANUAL DIFF REQ NO Normal [facility] [place] Comment on above: Performed By: #### C BC #### [facility] [address] [place] [address] Dr. Akira Thompson MCH (RBC) [Entitic mass] 25.7 pg Critically low 25.9-34.0 [facility] Comment on above: Performed By: #### C BC #### [facility] [address] [place] [address] Dr. Akira Thompson MCHC (RBC) [Mass/Vol] 31.1 g/dL Normal 29.9-35.2 [facility] Comment on above: Performed By: #### C BC #### [facility] [address] [place] [address] Dr. Akira Thompson MCV (RBC) [Entitic vol] 82.7 fL Normal 80.0-94.0 [facility] Comment on above: Performed By: #### C BC #### [facility] [address] [place] [address] Dr. Akira Thompson MONO # 0.6 103/ul Normal 0.3-0.8 [facility] Comment on above: Performed By: #### C BC #### [facility] [address] [place] [address] Dr. Akira Thompson Monocytes/100 WBC (Bld) 6.9 % Normal 1.7-12.0 [facility] Comment on above: Performed By: #### C BC #### [facility] [address] [place] [address] Dr. Akira Thompson NEUT # 6.7 103/ul Critically high 1.4-6.5 [facility] [place] Comment on above: Performed By: #### C BC #### [facility] [address] [place] [address] Dr. Akira Thompson Neutrophils/100 WBC (Bld) 73.4 % Normal 43.0-75.0 [facility] Comment on above: Performed By: #### C BC #### [facility] [address] [place] [address] Dr. Akira Thompson Platelet mean volume (Bld) [Entitic vol] 9.6 fL Normal 9.5-13.5 [facility] Comment on above: Performed By: #### C BC #### [facility] [address] [place] [address] Dr. Akira Thompson PLT 378 103/ul Normal 150-450 [facility] Comment on above: Performed By: #### C BC #### [facility] [address] [place] [address] Dr. Akira Thompson RBC 4.28 106/ul Critically low 4.70-6.10 [facility] Comment on above: Performed By: #### C BC #### [facility] [address] [place] [address] Dr. Akira Thompson WBC 9.2 103/ul Normal 4.0-11.0 [facility] Comment on above: Performed By: #### C BC #### [facility] [address] [place] [address] [address] Akira Thompson GLYCOHEMOGLOBIN A1Con 2021 ADA RECOMMENDATION SEE BELOW Normal [facility] Comment on above: Result Comment: ADA RECOMMENDED LIMIT 4.0 - 6.0 ADA THERAPEUTIC TARGET < 7.0 ACTION SUGGESTED > 7.0 Performed By: #### A 1C ####[facility] [address] [id number]. Akira Thompson Glucose [Mass/Vol] 151 mg/dL Normal [facility] Comment on above: Performed By: #### A 1C ####[facility] [address] [place] [address] [id number]. Akira Thompson HbA1c (Bld) [Mass fraction] 6.9 % Critically high 4.5-6.2 [facility] Comment on above: Performed By: #### A 1C ####[facility] [address] [id number]. Akira Thompson LIPID PROFILEon 04-28-2022 CHOL-HDL RATIO NORM SEE BELOW Normal [facility] Comment on above: Result Comment: 3.3 - 4.4 LOW RISK 4.4 - 7.1 AVERAGE RISK 7.1 - 11.0 MODERATE RISK >11.0 HIGH RISK Performed By: #### L IPID, BMP, LIVER, TSH #### [facility] [address] [address] [address] Akira Thompson Cholesterol [Mass/Vol] 148 mg/dL Normal <=200 [facility] Comment on above: Performed By: #### L IPID, BMP, LIVER, TSH #### [facility] [id number] Akira Thompson Cholesterol in HDL [Mass/Vol] 44 mg/dL Normal 40-60 [facility] Comment on above: Performed By: #### L IPID, BMP, LIVER, TSH #### [facility] [address] [address] [address] Akira Thompson Cholesterol in LDL [Mass/Vol] 85.8 mg/dL Normal [facility] Comment on above: Performed By: #### L IPID, BMP, LIVER, TSH #### [facility] [address] [address] [address] Akira Thompson Cholesterol.total/C holesterol in HDL [Mass ratio] 3.4 {ratio} Normal [facility] Comment on above: Performed By: #### L IPID, BMP, LIVER, TSH #### [facility] [address] [address] [address] Akira Thompson HDL NORMAL > or = 60 mg/dl - LO W CARDIOVASCULAR RISK <40 mg/dl - HIGH CARDIOVASCULAR RISK Normal [facility] Comment on above: Performed By: #### L IPID, BMP, LIVER, TSH #### [facility] [address] [address] [address] Akira Thompson LDL CALC NORMAL SEE BELOW Normal [facility] [place] Comment on above: Result Comment: <100 mg/dl OPTIMAL 100 - 129 mg/dl NEAR OR ABOVE OPTIMAL 130 - 159 mg/dl BORDERLINE HIGH 160 - 189 mg/dl HIGH >190 mg/dl VERY HIGH Performed By: #### L IPID, BMP, LIVER, TSH #### [facility] [address] [address] [address] Akira Thompson Triglyceride [Mass/Vol] 91 mg/dL Normal <=150 [facility] Comment on above: Performed By: #### L IPID, BMP, LIVER, TSH #### [facility] [address] [address] [address] Akira Thompson VLDL CALC 18.2 mg/dL Normal [facility] Comment on above: Performed By: #### L IPID, BMP, LIVER, TSH #### [facility] [address] [address] [address] Akira Thompson LIVER PROFILEon 04-28-2022 Albumin [Mass/Vol] 3.4 g/dL Normal 3.4-5.0 [facility] Comment on above: Performed By: #### L IPID, BMP, LIVER, TSH #### [facility] [address] [address] [address] Akira Thompson Albumin/Globulin [Mass ratio] 0.9 {ratio} Normal [facility] Comment on above: Performed By: #### L IPID, BMP, LIVER, TSH #### [facility] [address] [place] [address] Dr. Akira Thompson ALP [Catalytic activity/Vol] 136 U/L Critically high 46-116 [facility] Comment on above: Performed By: #### L IPID, BMP, LIVER, TSH #### [facility] [address] [place] [address] Dr. Akira Thompson ALT [Catalytic activity/Vol] 30 U/L Normal 16-63 [facility] Comment on above: Performed By: #### L IPID, BMP, LIVER, TSH #### [facility] [address] [place] [address] Dr. Akira Thompson AST [Catalytic activity/Vol] 18 U/L Normal 15-37 [facility] Comment on above: Performed By: #### L IPID, BMP, LIVER, TSH #### [facility] [address] [place] [address] Dr. Akira Thompson BILI, CONJUGATED 0.1 mg/dL Normal 0.0-0.2 [facility] Comment on above: Performed By: #### L IPID, BMP, LIVER, TSH #### [facility] [address] [place] [address] Dr. Akira Thompson Bilirubin [Mass/Vol] 0.3 mg/dL Normal 0.2-1.0 [facility] Comment on above: Performed By: #### L IPID, BMP, LIVER, TSH #### [facility] [address] [place] [address] Dr. Akira Thompson Globulin (S) [Mass/Vol] 3.7 g/dL Normal [facility] Comment on above: Performed By: #### L IPID, BMP, LIVER, TSH #### [facility] [address] [place] [address] Dr. Akira Thompson Protein [Mass/Vol] 7.1 g/dL Normal 6.4-8.2 [facility] Comment on above: Performed By: #### L IPID, BMP, LIVER, TSH #### [facility] [address] [address] [address] Akira Thompson MICROALBUMIN, RAND URon - mALB 1.8 mg/L Normal <=30.0 [facility] Comment on above: Performed By: #### M ALBR #### [facility] [address] [address] [address] Akira Thompson PROF CHEM 8 (BAS METB)on Anion gap [Moles/Vol] 9.2 mmol/L Normal [facility] Comment on above: Performed By: #### L IPID, BMP, LIVER, TSH #### [facility] [address] [place] [address] Dr. Akira Thompson Calcium [Mass/Vol] 8.6 mg/dL Normal 8.5-10.1 [facility] Comment on above: Performed By: #### L IPID, BMP, LIVER, TSH #### [facility] [address] [address] [address] Akira Thompson Chloride [Moles/Vol] 105 mmol/L Normal 98-107 [facility] Comment on above: Performed By: #### L IPID, BMP, LIVER, TSH #### [facility] [address] [address] [address] Akira Thompson CO2 [Moles/Vol] 28.7 mmol/L Normal 21.0-32.0 [facility] Comment on above: Performed By: #### L IPID, BMP, LIVER, TSH #### [facility] [address] [place] [address] Dr. Akira Thompson Creatinine [Mass/Vol] 0.92 mg/dL Normal 0.70-1.30 [facility] Comment on above: Performed By: #### L IPID, BMP, LIVER, TSH #### [facility] [address] [place] [address] Dr. Akira Thompson EGFR-AF CAMBODIAN >60 Normal >=60 [facility] Comment on above: Performed By: #### L IPID, BMP, LIVER, TSH #### [facility] [address] [address] [address] Akira Thompson EGFR-NON AF CAMBODIAN >60 Normal >=60 [facility] Comment on above: Performed By: #### L IPID, BMP, LIVER, TSH #### [facility] [address] [address] [address] Akira Thompson Glucose [Mass/Vol] 120 mg/dL Critically high 74-106 T [facility] Comment on above: Performed By: #### L IPID, BMP, LIVER, TSH #### [facility] [address] [address] [address] Akira Thompson Potassium [Moles/Vol] 3.9 mmol/L Normal 3.5-5.1 [facility] Comment on above: Performed By: #### L IPID, BMP, LIVER, TSH #### [facility] [address] [address] [address] Akira Thompson Sodium [Moles/Vol] 139 mmol/L Normal 136-145 [facility] Comment on above: Performed By: #### L IPID, BMP, LIVER, TSH #### [facility] [address] [address] [address] Akira Thompson Urea nitrogen [Mass/Vol] 14.0 mg/dL Normal 7.0-18.0 [facility] Comment on above: Performed By: #### L IPID, BMP, LIVER, TSH #### [facility] [address] [address] [address] Akira Thompson Urea nitrogen/Creatinine [Mass ratio] 15.2 mg/mg Normal [facility] Comment on above: Performed By: #### L IPID, BMP, LIVER, TSH #### [facility] [address] [address] [address] Akira Thompson TSHon 04-28-2022 TSH 2.891 uIU/mL Normal 0.358-3.740 [facility] Comment on above: Performed By: #### L IPID, BMP, LIVER, TSH #### [facility] [address] [address] [address] Akira Thompson VITAMIN D 25 OHon 04-28-2022 VIT D 25-OH 52.3 ng/mL Normal [facility] Comment on above: Performed By: #### [facility] ####[facility] [address] [id number]. Akira Thompson VIT D RANGES SEE BELOW Normal [facility] Comment on above: Result Comment: <20 ng/mL Vit D deficient 20 - <30 ng/mL Vit D insufficient 30 - 100 ng/mL Vit D sufficient >100 ng/mL Potential Toxicity Performed By: #### [facility] ####[facility] [address] [id number]. Akira Thompson XR TIB_FIB LT 2Von 2 XR TIB_FIB LT 2V EXAM: XR TIB_FIB LT 2V HISTORY: Pain COMPARISON: 11/13/2020 TECHNIQUE: Frontal and lateral views of the left tibia and fibula are performed. FINDINGS: There is deformity to the distal fibular diaphysis consistent with prior trauma. There is diffuse soft tissue edema present. No acute fracture is seen. IMPRESSION: Sequela of remote trauma involving the distal fibula. Soft tissue edema. No acute bony abnormality. Electronically authenticated by: SOTO OSHEA Date: 2021-12-28 22:08 Normal [facility] US MAL DOP LEG LTon 11-26-19 22 US MAL DOP LEG LT EXAMINATION: US MAL DOP LEG LT HISTORY: Pain of left calf COMPARISON: No relevant comparison available. FINDINGS: REGION: Left lower extremity THROMBI: None. COMPRESSIBILITY: Normal compressibility. FLOW: Normal waveform and antegrade flow between 5 and 20 cm/s. OTHER: Thrombosis of great saphenous vein secondary to prior treatment/endovenous laser ablation. IMPRESSION: 1. No deep vein thrombus within the left lower extremity. Electronically authenticated by: SINTIA JIMENEZ Date: 2021-11-25 14:23 Normal [facility] GLYCOHEMOGLOBIN A1Con 2021 ADA RECOMMENDATION SEE BELOW Normal [facility] Comment on above: Result Comment: ADA RECOMMENDED LIMIT 4.0 - 6.0 ADA THERAPEUTIC TARGET < 7.0 ACTION SUGGESTED > 7.0 Performed By: #### A 1C ####[facility] [address] [id number]. Akira Thompson Glucose [Mass/Vol] 160 mg/dL Normal [facility] Comment on above: Performed By: #### A 1C ####[facility] [address] [place], [place] [address]Fq. Akira Thompson HbA1c (Bld) [Mass fraction] 7.2 % Critically high 4.5-6.2 [facility] Comment on above: Performed By: #### A 1C ####[facility] [address] [place], [place] [address]Nd. Akira Thompson Q - QUANTIFERON TB GOLD PLUS on 09-07-2021 MITOGEN-NIL >10.00 Normal [facility] Comment on above: Order Comment: [facility] Testing performed at: [employer], [employer] [facility], [address] [place] [address], [address] [place] [address], [address] [place] [address], Supervisor [employer]: Maykel Arizmendi MD [facility] Collection Date/Time: [facility] Results Received Date/Time: [facility] Reported Date/Time: Performed By: #### [id number] #### [facility] [address] [place] [address] NIL 0.05 IU/mL Normal [facility] [employer] Comment on above: Order Comment: [facility] performed at: [employer], [employer] [facility], [address] [place] [address], [address] [place] [address], [address] [place] [address], Supervisor [employer]: Maykel Arizmendi MD [facility] Date/Time: [facility] Results Received Date/Time: [facility] Reported Date/Time: Performed By: #### [id number] #### [facility] [address] [place] [address] QUANTIFERON(R)-TB GOLD PLUS, 1 TUBE Negative Normal NEGATIVE [facility] Comment on above: Order Comment: [facility] performed at: [employer], [employer] [facility], [address] [place] [address], [address] [place] [address], [address] [place] [address], Supervisor [employer]: Maykel Arizmendi MD [facility] Date/Time: [facility] Results Received Date/Time: [facility] Reported Date/Time: Result Comment: Nega tive test result. M. tuberculosis complex infection unlikely. Performed By: #### [id number] #### [facility] [address] [place] [address] TB1-NIL <0.00 Normal [facility] Comment on above: Order Comment: [facility] performed at: [employer], [employer] [facility], [address] [place] [address], [address] [place] [address], [address] [place] [address], Supervisor [employer]: Maykel Arizmendi MD [facility] Date/Time: [facility] Results Received Date/Time: [facility] Reported Date/Time: Performed By: #### [id number] #### [facility] [address] [place] [address] TB2-NIL 0.02 IU/mL Normal [facility] Comment on above: Order Comment: [facility] performed at: [employer], [employer] [facility], [address] [place] [address], [address] [place] [address], [address] [place] [address], Supervisor [employer]: Maykel Arizmendi MD [facility] Date/Time: [facility] Results Received Date/Time: [facility] Reported Date/Time: Result Comment: The Nil tube value reflects the background interferon gamma immune response of the patient's blood sample. This value has been subtracted from the patient's displayed TB and Mitogen results. Lower than expected results with the Mitogen tube prevent false-negative Quantiferon readings by detecting a patient with a potential immune suppressive condition and/or suboptimal pre-analytical specimen handling. The TB1 Antigen tube is coated with the M. tuberculosis-specific antigens designed to elicit responses from TB antigen primed CD4+ helper T-lymphocytes. The TB2 Antigen tube is coated with the M. tuberculosis-specific antigens designed to elicit responses from TB antigen primed CD4+ helper and CD8+ cytotoxic T-lymphocytes. For additional information, please refer to https://education.[employer]/faq/YDE705 (This link is being provided for informational/ educational purposes only.) Performed By: #### [id number] #### [facility] [address] [place] [address] CT CARDIAC SCORINGon 03-11 CT CARDIAC SCORING Addendum Begins Patient Name: REINA MOULTON ADDENDUM: Technical: The following is to serve as an over-read for a coronary artery calcium score, to evaluate the extra vascular structures. Contiguous unenhanced CT sections are performed from the level of the lamar to the upper abdomen. Findings: The visualized portions of both lungs are clear allowing for by motion artifact. There is no sign of pathologic lymph node enlargement. There is no pericardial or pleural effusion. There may be a small hiatal hernia. Images through the upper abdomen are unremarkable. The visualized osseous and soft tissue structures of the chest wall are intact. Impression: Possible small hiatal hernia. The extra vascular structures are otherwise unremarkable. Electronically signed by: RAMILA ORDOÑEZ MD Addendum Ends Patient Name: REINA MOULTON STUDY: CT CARDIAC SCORING; 03/23/2019 1:20 pm INDICATION: FM HX HEART PROBLEM SCREEN FOR CARDIOVASCULAR. COMPARISON: None. ACCESSION NUMBER(S): [id number] ORDERING CLINICIAN: GUSTAVO GILL TECHNIQUE: Using prospective ECG gating, CT scan of the coronary arteries was performed without intravenous contrast. Coronary calcium scoring was performed according to the method of Agatston. CT Dose-Length Product (DLP): 51.4 mGy*cm CT Dose Reduction Employed: Yes, prospective gating, iterative reconstruction. FINDINGS: The score and distribution of calcium in the coronary arteries is as follows: LM 0 LAD 0 LCx 0 RCA 0 Total 0 The visualized mid/lower ascending thoracic aorta measures 3.3 cm in diameter. The heart is normal in size. No pericardial effusion is present. IMPRESSION: 1. Coronary artery calcium score of 0*. *Coronary artery calcium scoring may be helpful in predicting the risk for future coronary heart disease events. According to the [place] [employer] Clinical Expert Consensus Task Force, such testing provides important prognostic information in patients with more than one coronary heart disease risk factor. The coronary artery calcium score correlates with the annual risk of a non-fatal myocardial infarction or coronary heart disease . Coronary artery score Annual Risk 0-99 0.4% 100-399 1.3% >400 2.4% These three breakpoints correspond to lower, intermediate and high risk states for future coronary events. Such information should be used, along with appropriate clinical judgment, to make decisions regarding the intensity of risk factor management strategies to treat blood lipids and to modify other non-lipid coronary risk factors. Reference: [place]ton P et al. Circulation. 2007; 115:402-426 [place] Worker: Dr. Etienne Mary, Date: 03/23/2019 2:05 pm Electronically signed by: RAMILA ORDOÑEZ MD [facility] Vital Signs Date Time Vital Sign Value Performing Clinician Facility 08-02-2023 10:54-0500 Body height 177.8 cm Blaine Lopez DO Work Phone: [facility] [employer] 08-02-2023 10:54-0500 Body mass index (BMI) [Ratio] 42.86 kg/m2 [facility] 08-02-2023 10:54-0500 Body temperature 98.71 [degF] Blaine Guerras [facility] 08-02-2023 10:54-0500 Body weight 135.49 kg Blaine Lopez [facility] 08-02-2023 10:54-0500 Diastolic blood pressure 60 mm[Hg] Blaine Lopez [facility] 08-02-2023 10:54-0500 Heart rate 71 /min Blaine Guerras DO [facility] 08-02-2023 10:54-0500 SaO2% (BldA) [Mass fraction] 94 % Blaine Guerras DO Work Phone: [facility] [employer] 08-02-2023 10:54-0500 Systolic blood pressure 100 mm[Hg] Blaine Lopez DO [facility] 09-28-2021 12:30-0400 Body height 177.8 cm Reed Helm Other [employer] Other 09-28-2021 12:30-0400 Body mass index (BMI) [Ratio] 46.2 kg/m2 Reed Helm Other [employer] Other 09-28-2021 12:30-0400 Body temperature 97.1 [degF] Reed Volodymyr Other [employer] Other 09-28-2021 12:30-0400 Body weight 146.06 kg Reed Helm Other [employer] Other 09-28-2021 12:30-0400 Diastolic blood pressure 88 mm[Hg] Reed Volodymyr Other [employer] Other 09-28-2021 12:30-0400 SaO2% (BldA) [Mass fraction] 95 % Reed Volodymyr Other [employer] Other 09-28-2021 12:30-0400 Systolic blood pressure 146 mm[Hg] Reed Volodymyr Other [employer] Other Encounters Encounter Date Encounter Type Care Provider Facility Start: 09-28-2023 End: 09-28-2023 ambulatory [facility] Start: 08-08-2023 Refill Adysan Jck [facility] Comment on above: Bipolar 1 disorder, depressed (CMS-HCC) (Primary Dx); Primary hypertension; Psoriasis; Hypercholesterolemia Start: 08-02-2023 End: 08-03-2023 ambulatory [facility] Start: 08-02-2023 End: 08-02-2023 ambulatory [facility] Start: 08-02-2023 End: 08-02-2023 Office outpatient visit 25 minutes Blaine Lopez DO [facility] Comment on above: Type 2 diabetes ileana itus without complication, without long- term current use of insulin (CMS-HCC) (Primary Dx); Morbid obesity ([facility]-H[facility]); Bipolar 1 disorder, depressed ([facility]-HCC); Obstructive sleep apnea syndrome; Exocrine pancreatic insufficiency; B12 deficiency; Enuresis Start: 07-25-2023 End: 07-25-2023 ambulatory JOSEPHINE GODFREY Not Available Start: 05-25-2023 ambulatory Tor Boucher acility:[facility] Start: 05-25-2023 End: 05-25-2023 ambulatory ESCOBAR WILSON Not Available Start: 05-23-2023 End: 05-23-2023 [facility] Start: 04-12-2023 End: 04-13-2023 ambulatory ESCOBAR WILSON Facility:[facility] Start: 03-04-2023 Encounter for preprocedural cardiovascular examination [facility] Start: 03-04-2023 End: 03-04-2023 ambulatory [facility] Start: 03-04-2023 End: 03-04-2023 Encounter for preprocedural cardiovascular examination [facility] Start: 10-26-[address] ESCOBAR WILSON Facili ty:[facility] Start: 10-16-2022 Encounter for preprocedural cardiovascular examination DR ESCOBAR WILSON [facility] Start: 10-16-2022 Encounter for preprocedural laboratory examination DR ESCOBAR WILSON [facility] Start: 10-12-2022 End: 10-13-[address] ESCOBAR WILSON Facility:[facility] Start: 10-12-2022 End: 10-13-2022 Encounter for preprocedural cardiovascular examination DR ESCOBAR WILSON Facility:[facility] Start: 09-17-2022 End: 09-18-[address] ESCOBAR WILSON Facility:[facility] Start: 08-11-2022 End: 08-12-[address] ESCOBAR TIMMIS Facility:[facility] Start: 05-02-2022 Encounter for genera l adult medical examination without abnormal findings DR KULDEEP BARRETT [facility] Start: 04-28-2022 End: 04-29-[address] KULDEEP BARRETT Facility:[facility] Start: 04-28-2022 End: 04-29-2022 Encounter for general adult medical examination without abnormal findings DR KULDEEP BARRETT Facility:[facility] Start: 02-23-2022 End: 02-23-2022 Patient encounter procedure MD Kuldeep Barrett Work Phone: [facility] Start: 12-28-2021 End: 12-29-[address] REINA BAEZ Facility:[facility] Start: 11-25-2021 End: 11-25-[address] KULDEEP BARRETT Facility:[facility] Start: 11-03-2021 End: 11-04-[address] KULDEEP BARRETT Facility:[facility] Start: 10-20-2021 End: 10-20-2021 Patient encounter procedure MD Kuldeep Barrett Work Phone: [facility] Start: 09-28-2021 End: 09-28-2021 ambulatory Reed Helm Other [employer] Other Start: 09-28-2021 Office outpatient ne w 45 minutes Reed Helm [facility] Start: 09-28-2021 End: 09-28-2021 Patient encounter procedure MD Kuldeep Barrett Work Phone: [facility] Procedures Date Procedure Procedure Detail Performing Clinician Start: 08-02-2023 Adult depression scr eening assessment Blaine Lopez DO Work Phone: Start: 04-25-2023 Microalbumin [Mass/v olume] in Urine by Test strip Blaine Lopez DO Work Phone: Start: 04-28-[address] ESCOBAR WILSON Comment on above: Performed By: #### [facility] ####[facility] [id number] [place], [place] [address]Dr. Akira Thompson Start: 11-06-2020 Colonoscopy Blaine Araujochloe DO Work Phone: Plan of Treatment Date Care Activity Detail Author Start: 06-24-2033 DTaP,Tdap and Td Vaccines (2 - Td or Tdap) DTaP,Tdap and Td Vaccines (2 - Td or Tdap) [facility] Start: 08-02-2024 Adult BMI Screening Adult BMI Screening [facility] Start: 08-02-2024 Depression Screening Depression Screening [facility] Start: 08-02-2024 Tobacco Screening Tobacco Screening [facility] Start: 06-24-2024 Adult BMI Screening Adult BMI Screening [facility] Start: 06-24-2024 Depression Screening Depression Screening [facility] Start: 06-24-2024 Tobacco Screening Tobacco Screening [facility] Start: 04-25-2024 Urine screening for protein Urine Microalbumin [facility] Start: 01-05-2024 Diabetic foot examination Diabetic Foot Exam [facility] Start: 11-29-2023 End: 11-29-2023 Patient encounter procedure 11/29/2023 11:45 AM EDT Office Visit [facility] [address] [place] [phone] Alfonzo Lucero MD [address] [place] [address] [facility] Start: 11-07-2023 Screening for malignant neoplasm of colon Colonoscopy [facility] Start: 03-11-2023 COVID-19 Vaccine ( season) COVID-19 Vaccine ( season) [facility] Start: 2020 Administration of varicella zoster vaccine Zoster (Shingles) Vaccine (1 of 2) [facility] Start: 1988 Adult BMI Follow Up Plan Adult BMI Follow Up Plan [facility] Start: 1970 Glaucoma screening Diabetic Ophthalmology Exam [facility] Immunizations Immunization Date Immunization Notes Care Provider Fa cility 06-24-2023 influenza, injectabl e, quadrivalent, preservative free Blaine Lopez DO Work Phone: [facility] 06-24-2023 tetanus toxoid, redu juana diphtheria toxoid, and acellular pertussis vaccine, adsorbed Blaine Lopez DO Work Phone: [facility] 04-28-2022 influenza, injectabl e, quadrivalent, preservative free Blaine Lopez DO Work Phone: [facility] 07-13-2021 Influenza, injectabl e, Madin Dyess Canine Kidney, preservative free, quadrivalent Blaine Lopez DO Work Phone: [facility] 04-11-2020 influenza, injectabl e, quadrivalent, preservative free Blaine Lopez DO Work Phone: [facility] Payers Date Payer Category Payer Self-pay [id number] 2021 Unknown 1970 Unknown [id number] 2.16.84 [id number] 1970 Unknown [id number] 2.16.84 [id number] 1970 Unknown [id number] 2.16.84 [id number] 1970 Unknown [id number] 2.16.84 [id number] 1970 Unknown [id number] 2.16.84 [id number] 1970 Unknown [id number] 2.16.84 [id number] 1970 Unknown [id number] 2.16.84 [id number] 1970 Unknown [id number] 2.16.84 [id number] 1970 Unknown [id number] 2.16.8 [id number] 1970 Unknown [id number] 2.16.84 0.1.012521.3.579.2.1259 1970 Unknown [id number] 2.16.840. [id number] 1970 Unknown [id number] 2.16.84 0.1.673016.3.579.2.1286 1970 Unknown [id number] 2.16.8 [id number] 1959 Unknown [id number] Unknown [id number] 2.16. [id number] Unknown [id number] 2.16.8 [id number] Social History Date Type Detail Facility [facility] if ever smoked [employer] Other Start: 1970 [facility] At [facility] Start: 08-21-2020 End: 08-02-2023 Sex Assigned At [employer] Other Start: 09-01-2022 Tobacco smoking stat [facility] Never smoked tobacco [facility] Start: 09-01-2022 Tobacco use and exposure Smokeless tobacco non-user [facility] Start: 08-02-2023 Alcohol intake Current drinke r of alcohol (finding) [facility] Start: 08-21-2020 End: 08-02-2023 History of Social function [facility] Adolescent depressio n screening assessment 0 [facility] Start: 10-29-2020 Alcohol Comment socially [facility] Start: 1970 Sex Assigned At Not on file [facility] Medical Equipment Procedure Code Equipment Code Equipment Origin al Text Equipment Identifier Dates Use once daily in AM [id number] Star t: 05-08-2023 Use once daily [id number] Start: 05-03-2023 1 Unit by miscellaneous route in the morning. [id number] Start: 06-06-2023 Clinical Notes 09-28-2021 to 09-28-2023 Blaine Lopez, DO - 08/02/2023 11:00 AM EST Note Date & Type Note Facility 09-28-2023 Note [facility] CARDIOLOGY PROGR ESS NOTE HPI: Reina Moulton is a 53 y.o. male Who was referred to cardiology clinic for perioperative restratification, abnormal stress test, and hypertension. Stress test demonstrated a technically difficult study with excessive GI uptake and diaphragmatic attenuation. There is an inferior fixed defect likely attenuation artifact. There is a small reversible diffuse defect in the apex, concerning for ischemia, however could not rule out artifact. Patient states that he was a physically active and denies any cardiac complaints or concerns. At that time, decision was made to clear patient for surgery. He presents today for follow-up. Patient adamantly denies any cardiac complaints or concerns. Patient denies any chest pain or shortness of breath. Patient denies any lower extremity edema, orthopnea, or proximal nocturnal dyspnea. No near-syncope or syncope. No dizziness or lightheadedness. PMH: DM type 2, GERD, JENNIFER does not wear Cpap, morbid obesity PSH- no pertinent cardiac surgery or procedure in the past FMH: father: [place] and CAD prior to age 50yo- - DM, HTN, HPL; Mom- Cancer; Social- never a smoker, denied illicit drug use; Admits about 1 x month- mixed drinks Review of Systems Constitutional: Negative. Respiratory: Negative. Cardiovascular: Negative. Neurological: Negative. All other systems reviewed and are negative. Visit Vitals BP 108/60 (BP Location: Left arm, Patient Position: Sitting) Pulse 75 Ht 1.778 m (5' 10 ) Wt 136 kg (300 lb) SpO2 94% BMI 43.05 kg/m??? Smoking Status Never BSA 2.59 m??? No Known Allergies Medications: Current Outpatient Medications on File Prior to Visit Medication Sig Dispense Refill ARIPiprazole (Abilify) 20 mg tablet Take 20 mg by mouth in the morning. atorvastatin (Lipitor) 40 mg tablet Take 1 tablet (40 mg) by mouth in the morning. 90 tablet 3 cholecalciferol (Vitamin D-3) 25 MCG (1000 UT) capsule Take 1,000 Units by mouth in the morning. cyanocobalamin (Vitamin B-12) 1,000 mcg tablet Take 1,000 mcg by mouth in the morning. diphenoxylate-atropine (Lomotil) 2.5-0.025 mg tablet Take 1 tablet by mouth if needed in the morning, at noon, in the evening, and at bedtime. finasteride (Proscar) 5 mg tablet hydroCHLOROthiazide (HYDRODiuril) 25 mg tablet Take 1 tablet (25 mg) by mouth in the morning. 90 tablet 3 ibuprofen 800 mg tablet Take 800 mg by mouth every 6 (six) hours if needed. imipramine (Tofranil) 50 mg tablet 25 tablets. lisinopril 5 mg tablet Take 1 tablet (5 mg) by mouth in the morning. 90 tablet 3 metaxalone (Skelaxin) 800 mg tablet Take 800 mg by mouth in the morning, afternoon, and at bedtime. mirabegron 50 mg tablet extended release 24 hr Take 50 mg by mouth in the morning. risankizumab-rzaa (Skyrizi) 150 mg/mL pen injector Inject 150 mg under the skin. sertraline (Zoloft) 25 mg tablet Take 25 mg by mouth at bedtime. solifenacin (VESIcare) 5 mg tablet Take 5 mg by mouth in the morning. tamsulosin (Flomax) 0.4 mg 24 hr capsule clonazePAM (KlonoPIN) 0.5 mg tablet Take 0.5 mg by mouth if needed in the morning, at noon, and at bedtime. Creon 12,000-38,000 -60,000 unit capsule take 1 capsule by mouth every morning then 1 capsule AT 12PM then... (REFER TO PRESCRIPTION NOTES). glipiZIDE (Glucotrol) 10 mg tablet magnesium oxide 400 mg magnesium capsule Take 500 mg by mouth in the morning. semaglutide (Rybelsus) 7 mg tablet Take 7 mg by mouth in the morning. [DISCONTINUED] guselkumab (Tremfya) 100 mg/mL syringe No current facility-administered medications on file prior to visit. Physical Exam: Constitutional: Appearance: Normal appearance. Without apparent distress, obese HENT: Head: Normocephalic and atraumatic. Nose: Nose normal. Mouth/Throat: Mouth: Mucous membranes are moist. Eyes: Extraocular Movements: Extraocular movements intact. Conjunctiva/sclera: Conjunctivae normal. Neck: Vascular: No JVD. Cardiovascular: Rate and Rhythm: Normal rate and regular rhythm. Pulses: Dorsalis pedis pulses are 3 on the right side and 3on the left side. Posterior tibial pulses are 3 on the right side and 3 on the left side. Heart sounds: Normal heart sounds, S1 normal and S2 normal. Pulmonary: Effort: Pulmonary effort is normal. Breath sounds: Normal breath sounds. Abdominal: General: Bowel sounds are normal. Palpations: Abdomen is soft. Musculoskeletal: General: Normal range of motion. Cervical back: Normal range of motion. Right lower le+ pitting edema. Left lower le+ pitting edema. Skin: General: Skin is warm and dry. BLE hemosideran skin changes Capillary Refill: Capillary refill takes less than 2 seconds. Neurological: General: No focal deficit present. Mental Status: he is alert and oriented to person, place, and time. Psychiatric: Mood and Affect: Mood normal. Behavior: Behavior normal. Thought Content: Thought content nor (more content not included)... [facility] 09-28-2023 Note Patient here for 4 m o follow up hypertension and hyperlipidemia. Had routine labs w/ lipid panel in Jul 2023. PCP did not make medication changes to cardiac meds. Patient denies chest pain, SOB, palpitations, and lightheadedness/syncope. States he's doing very well. [facility] 08-02-2023 History of Present illness Narrative IM PROGRESS NOTE Patient - Reina Moulton Age - 53 y.o. - 1970 ASSESSMENT & PLAN 1. Type 2 diabetes mellitus without complication, without long-term current use of insulin ([facility]) -currently on Soliqua 40 units daily -repeat A1c to assess efficacy of current treatment -may need to add mealtime insulin -we discussed using a CGM for monitoring rather than fingerstick. Patient is agreeable to initiate process for obtaining a CGM - Hemoglobin A1c; Future - Comprehensive metabolic panel; Future - Lipid profile; Future - insulin glargine-lixisenatide (SOLIQUA 100/33) 100 unit-33 mcg/mL insulin pen; Inject 40 Units under the skin daily with breakfast. 2. Morbid obesity ([facility]) -BMI stable from previous -currently on G LP 1 agent -continue to work with Psychiatry to wean Abilify down to lowest working dose 3. Bipolar 1 disorder, depressed ([facility]) -overall stable. -currently on Abilify, and sertraline 4. Obstructive sleep apnea syndrome -still present -patient not currently wearing CPAP 5. Exocrine pancreatic insufficiency -symptoms improved but still not optimal, given that he is still taking [place] daily [place] [address] [place].i.d. -continue to avoid using Imodium - ajrotv-lfmqwwra-kwngjht 40,000-126,000- 168,000 unit capsule,delayed release(DR/EC); Take 1 Capful by mouth in the morning and 1 Capful at noon and 1 Capful in the evening. Take with meals. Dispense: 270 capsule; Refill: 1 6. B12 deficiency -levels earlier last year were low -currently taking cyanocobalamin 1000 mcg daily -symptoms are improving. Continue same 7. Enuresis -overall stable -unfortunately still requires 3 medications including imipramine, mirabegron, and solifenacin to control. -if able, will try to wean off of diuretics which he is using for his blood pressure control Subjective DIABETIC VISIT This is a follow up of a pre-existing problem. Patient self monitoring includes finger stick BG checkin time/day. FBS generally 100-150 mg/dL. Patient experiences hypoglycemia None. Patient symptoms of hyperglycemia include: none. Current prescribed diet is consistent carbohydrate. Patient is not following the prescribed diet plan. However, is watching portion size. Home activity includes: The patient does not participate in regular exercise at present.. Patient does experience numbness or burning in their hands or feet. However, he feels it is improved since starting the B12 supplementation. Patient does not have vision changes. Last eye exam was: 2022 Patient BP monitoring is done sporadically, and can't recall values. Patient reports: taking medications as instructed, no medication side effects noted, patient does not perform home BP monitoring, no chest pain on exertion, no dyspnea on exertion, no swelling of ankles, no orthostatic dizziness or lightheadedness, no palpitations, and no intermittent claudication symptoms Issues affecting compliance with diabetic self management include: Still on high dose of Abilify. Saw Psychiatry yesterday and no thoughts of decreasing the medication were discussed. A review of systems was negative except for the following: Psychiatric: depression and possible bipolar. Currently on Abilify, sertraline and symptoms are stable Gastrointestinal: Still has loose stools once a day, but not uncontrolled and usually not more than once. Has been better with higher dose of Zenpep, but still taking 1 Imodium daily. Genito-Urinary: Diagnosed with enuresis. Currently on 3 medicines to control including imipramine, solifenacin and mirabegron. Stable Musculoskeletal: joint stiffness and noted mainly in his knees. Also has had some stiffness in his shoulders, left more than right. Generally improves if he gets up and starts moving.. Exam BP 100/60 (BP Site: Right Arm, BP Postition: Sitting) Pulse 71 Temp 37.1 C (98.7 F) (Tympanic) Ht 177.8 cm (5' 10 ) Wt 135.5 kg (298 lb 11.2 oz) SpO2 94% BMI 42.86 kg/m Physical Exam Vitals reviewed. Constitutional: General: He is not in acute distress. Appearance: He is well-developed. He is obese. He is not toxic-appearing. HENT: Head: Normocephalic. Right Ear: External ear normal. Left Ear: External ear normal. Nose: Nose normal. Mouth/Throat: Mouth: Mucous membranes are moist. Eyes: General: No scleral icterus. Conjunctiva/sclera: Conjunctivae normal. Neck: Vascular: No carotid bruit. Cardiovascular: Rate and Rhythm: Normal rate and regular rhythm. Heart sounds: No murmur heard. No gallop. Pulmonary: Effort: Pulmonary effort is normal. Breath sounds: No wheezing or rales. Abdominal: Palpations: Abdomen is soft. Musculoskeletal: Right lower leg: No edema (Trace). Left lower leg: No edema (Trace). Comments: Left shoulder: Range of motion restricted in internal rotation. Tender along the supraspinatus with palpation Normal abduction and flexion Lymphadenopathy: Cervical: No cervical adenopathy. Skin: General: Skin is warm and dry. Coloration: Skin is not jaundiced. Findings: No bruising. Comments: Chronic discoloration of bilateral ankles and lower tibial regions Neurological: Mental Status: He is alert and oriented to person, place, and time. Sensory: Sensory deficit (Decreased vibratory sensation bilaterally on the toes, feet and ankles. Normal monofilament testing bilateral feet) present. Motor: No weakness. Coordination: Coordination normal. Deep Tendon Reflexes: Reflexes are normal and symmetric. Psychiatric: Mood and Affect: Mood normal. Behavior: Behavior normal. Comments: Flat affect Left: Pulses Posterior Tibial: present Vibratory sensation diminished Filament test present Right: Pulses Posterior Tibial: present Vibratory sensation diminished Filament test present Meds Current Outpatient Medications: ARIPiprazole (ABILIFY) 15 mg tablet, Take 1 tablet (15 mg total) by mouth in the morning., Disp: , Rfl: atorvastatin (LIPITOR) 40 mg tablet, Take 1 tablet (40 mg total) by mouth in the morning., Disp: 90 tablet, Rfl: 3 blood sugar diagnostic (glucose blood) strip, Use once daily in AM, Disp: 100 strip, Rfl: 1 blood-glucose meter kit, Use daily as instructed, Disp: 1 each, Rfl: 0 CALCIUM CITRATE ORAL, Take 600 mg by mouth daily., Disp: , Rfl: cholecalciferol, vitamin D3, 25 mcg (1,000 unit) capsule, Take 1 capsule (1,000 Units total) by mouth in the morning., Disp: 90 capsule, Rfl: 1 cyanocobalamin (vitamin B-12) 1000 MCG tablet, Take 1 tablet (1,000 mcg total) by mouth in the morning., Disp: 90 tablet, Rfl: 1 diphenoxylate-atropine (LOMOTIL) 2.5-0.025 mg per tablet, Take 1 tablet by mouth daily as needed for diarrhea., Disp: , Rfl: finasteride (PROSCAR) 5 mg tablet, , Disp: , Rfl: hydroCHLOROthiazide (HYDRODIURIL) 25 mg tablet, Take 1 tablet (25 mg total) by mouth daily., Disp: 90 tablet, Rfl: 3 ibuprofen (ADVIL,MOTRIN) 800 mg tablet, Take 1 tablet (800 mg total) by mouth every 6 (six) hours as needed for pain., Disp: , Rfl: imipramine (TOFRANIL) 25 mg tablet, , Disp: , Rfl: lancets (onetouch ultrasoft) mis, Use once daily, Disp: 100 each, Rfl: 1 lisinopriL (PRINIVIL,ZESTRIL) 5 mg tablet, Take 1 tablet (5 mg total) by mouth in the morning., Disp: 90 tablet, Rfl: 3 magnesium oxide 400 mg magnesium capsule, Take 1.25 capsules (500 mg total) by mouth in the morning., Disp: , Rfl: metaxalone (SKELAXIN) 800 mg tablet, Take 1 tablet (800 mg total) by mouth 3 (three) times a day as needed for muscle spasms., Disp: 90 tablet, Rfl: 0 mirabegron (MYRBETRIQ) 50 mg tablet extended release 24 hr, Take 1 tablet (50 mg total) by mouth in the morning., Disp: 90 tablet, Rfl: 3 pen needle, diabetic 32 gauge x /32 needle, 1 Unit by miscellaneous route in the morning., Disp: 100 each, Rfl: 3 potassium 99 mg tablet, Take 1 tablet (99 mg total) by mouth in the morning., Disp: , Rfl: risankizumab-rzaa (SKYRIZI) 150 mg/mL pen injector, Inject 150 mg under the skin., Disp: , Rfl: sertraline (ZOLOFT) 50 mg tablet, Take 1 tablet (50 mg total) by mouth in the morning., Disp: , Rfl: solifenacin (VESICARE) 10 mg tablet, Take 1 tablet (10 mg total) by mouth in the morning., Disp: 90 tablet, Rfl: 3 tamsulosin (FLOMAX) 0.4 mg capsule, , Disp: , Rfl: insulin glargine-lixisenatide (SOLIQUA 100/33) 100 unit-33 mcg/mL insulin pen, Inject 40 Units under the skin daily with breakfast., Disp: , Rfl: pjpahd-cfxscdqi-wzfsjed 40,000-126,000- 168,000 unit capsule,delayed release(DR/EC), Take 1 Capful by mouth in the morning and 1 Capful at noon and 1 Capful in the evening. Take with meals., Disp: 270 capsule, Rfl: 1 Lab Results No visits with results within 1 Month(s) from this visit. Latest known visit with results is: Hospital Outpatient Visit on 04/25/2023 Component Date Value Ref Range Status Hemoglobin A1C 04/25/2023 13.0 (H) 4.4 - 5.6 % Final Average glucose 04/25/2023 326 mg/dL Final Microalbumin urine 04/25/2023 <0.7 0.0 - 1.9 mg/dL Final Urine creat 04/25/2023 29.10 mg/dL Final Alb/creat ratio 04/25/2023 NOT CALCULATED 0.0 - 30.0 mg/g creat Final Sodium 04/25/2023 129 (L) 134 - 146 mmol/L Final Potassium, Bld 04/25/2023 4.1 3.5 - 5.0 mmol/L Final Chloride 04/25/2023 94 (L) 98 - 109 mmol/L Final CO2 04/25/2023 25 22 - 32 mmol/L Final Anion gap 04/25/2023 10 5 - 15 mmol/L Final BUN 04/25/2023 15 5 - 23 mg/dL Final Creatinine 04/25/2023 1.06 0.60 - 1.30 mg/dL Final Glucose 04/25/2023 495 (HH) 65 - 99 mg/dL Final Calcium 04/25/2023 9.0 8.5 - 10.5 mg/dL Final Total Protein 04/25/2023 6.7 6.0 - 8.0 g/dL Final Albumin 04/25/2023 3.7 3.2 - 5.3 g/dL Final Alkaline Phosphatase 04/25/2023 111 39 - 130 U/L Final AST 04/25/2023 23 0 - 41 U/L Final ALT 04/25/2023 26 0 - 40 U/L Final Total bilirubin 04/25/2023 0.2 (L) 0.3 - 1.2 mg/dL Final eGFR (CKD-EPI)non-race dependent 04/25/2023 84 >59 ml/min/1.73sq.m Final Other Testing No results found. Blaine Lopez DO., [facility] Office: [phone] documented in this encounter [facility] 05-23-2023 Note [facility] 05-23-2023 Note [facility] CARDIOLOGY PROGR ESS NOTE HPI: Reina Moulton is a 52 y.o. male Who was referred to cardiology clinic for perioperative restratification, abnormal stress test, and hypertension. Stress test demonstrated a technically difficult study with excessive GI uptake and diaphragmatic attenuation. There is an inferior fixed defect likely attenuation artifact. There is a small reversible diffuse defect in the apex, concerning for ischemia, however could not rule out artifact. Patient states that he was a physically active and denies any cardiac complaints or concerns. At that time, decision was made to clear patient for surgery. He presents today for follow-up. He has since had his surgery. He states that the surgery went well. He denies any cardiac complications or issues. He adamantly denies any cardiac complaints or concerns Patient adamantly denies any cardiac complaints or concerns. Patient denies any chest pain or shortness of breath. Patient denies any lower extremity edema, orthopnea, or proximal nocturnal dyspnea. No near-syncope or syncope. No dizziness or lightheadedness. Given his medications as prescribed. His blood pressure is much better controlled. PMH: DM type 2, GERD, JENNIFER does not wear Cpap, morbid obesity PSH- no pertinent cardiac surgery or procedure in the past FMH: father: [place] and CAD prior to age 50yo- - DM, HTN, HPL; Mom- Cancer; Social- never a smoker, denied illicit drug use; Admits about 1 x month- mixed drinks Review of Systems Constitutional: Negative. Respiratory: Negative. Cardiovascular: Negative. Neurological: Negative. All other systems reviewed and are negative. Visit Vitals BP 133/75 (BP Location: Left arm, Patient Position: Sitting) Pulse 93 Ht 1.778 m (5' 10 ) Wt (!) 137 kg (301 lb) SpO2 93% BMI 43.19 kg/m??? Smoking Status Never BSA 2.6 m??? No Known Allergies Medications: Current Outpatient Medications on File Prior to Visit Medication Sig Dispense Refill ARIPiprazole (Abilify) 20 mg tablet Take 20 mg by mouth in the morning. atorvastatin (Lipitor) 40 mg tablet Take 1 tablet (40 mg) by mouth in the morning. 90 tablet 3 cholecalciferol (Vitamin D-3) 25 MCG (1000 UT) capsule Take 1,000 Units by mouth in the morning. cyanocobalamin (Vitamin B-12) 1,000 mcg tablet Take 1,000 mcg by mouth in the morning. diphenoxylate-atropine (Lomotil) 2.5-0.025 mg tablet Take 1 tablet by mouth if needed in the morning, at noon, in the evening, and at bedtime. finasteride (Proscar) 5 mg tablet glipiZIDE (Glucotrol) 10 mg tablet hydroCHLOROthiazide (HYDRODiuril) 25 mg tablet Take 1 tablet (25 mg) by mouth in the morning. 90 tablet 3 ibuprofen 800 mg tablet Take 800 mg by mouth every 6 (six) hours if needed. imipramine (Tofranil) 50 mg tablet 25 tablets. lisinopril 5 mg tablet Take 1 tablet (5 mg) by mouth in the morning. 90 tablet 3 metaxalone (Skelaxin) 800 mg tablet Take 800 mg by mouth in the morning, afternoon, and at bedtime. mirabegron 50 mg tablet extended release 24 hr Take 50 mg by mouth in the morning. risankizumab-rzaa (Skyrizi) 150 mg/mL pen injector Inject 150 mg under the skin. semaglutide (Rybelsus) 7 mg tablet Take 7 mg by mouth in the morning. sertraline (Zoloft) 25 mg tablet Take 25 mg by mouth at bedtime. solifenacin (VESIcare) 5 mg tablet Take 5 mg by mouth in the morning. tamsulosin (Flomax) 0.4 mg 24 hr capsule clonazePAM (KlonoPIN) 0.5 mg tablet Take 0.5 mg by mouth if needed in the morning, at noon, and at bedtime. Creon 12,000-38,000 -60,000 unit capsule take 1 capsule by mouth every morning then 1 capsule AT 12PM then... (REFER TO PRESCRIPTION NOTES). guselkumab (Tremfya) 100 mg/mL syringe magnesium oxide 400 mg magnesium capsule Take 500 mg by mouth in the morning. No current facility-administered medications on file prior to visit. Physical Exam: Constitutional: Appearance: Normal appearance. Without apparent distress, obese HENT: Head: Normocephalic and atraumatic. Nose: Nose normal. Mouth/Throat: Mouth: Mucous membranes are moist. Eyes: Extraocular Movements: Extraocular movements intact. Conjunctiva/sclera: Conjunctivae normal. Neck: Vascular: No JVD. Cardiovascular: Rate and Rhythm: Normal rate and regular rhythm. Pulses: Dorsalis pedis pulses are 3 on the right side and 3on the left side. Posterior tibial pulses are 3 on the right side and 3 on the left side. Heart sounds: Normal heart sounds, S1 normal and S2 normal. Pulmonary: Effort: Pulmonary effort is normal. Breath sounds: Normal breath sounds. Abdominal: General: Bowel sounds are normal. Palpations: Abdomen is soft. Musculoskeletal: General: Normal range of motion. Cervical back: Normal range of motion. Right lower le+ pitting edema. Left lower le+ pitting edema. Skin: General: Skin is warm and dry. BLE hemosideran skin changes Capillary Refill: Capillary refill takes less th (more content not included)... [facility] 05-23-2023 Note Patient here for 3 m o follow up hypertension and hyperlipidemia. Cari Caro added atorvastatin and hydrochlorothiazide in Feb. She then added lisinopril for better BP control in Mar 2023. Had liver and lipid panel a few days ago. Down 22# since visit in Feb. Denies chest pain and states he hasn't had any issues with exertional dyspnea. Review of Systems Constitutional: Positive for weight loss (22# since 03/04/2023). Skin: Positive for color change. Musculoskeletal: Positive for arthritis, back pain and joint pain. Neurological: Positive for light-headedness. All other systems reviewed and are negative. [facility] 03-15-2023 Note B/P remains uncontro lled per staff call to pt to review b/p log, therefore will add lisinopril 5 mg daily- staff to notify pt. Repeat BMP in 1 week. RTC as scheduled. Flora Caro [employer] Division of Cardiology, [facility] Ph- [phone] Pager- [phone] Email- [email or web address] 03-04-2023 Note Follow Up with PCP f or further management, strongly recommended weight loss [facility] 03-04-2023 Note ASCVD recommendation s to start statin we will start Lipitor moderate dose 40 mg daily In light that he is diabetic, obese, and 50% risk of cardiovascular disease in his lifetime Repeat hepatic function and lipid level in 2 to 3 months Discussed with patient to call office for any muscle aches, joint aches myalgias or any concerns after starting [facility] 03-04-2023 Note Reviewed stress test with patient no ischemia noted on EKG or concerning symptoms during stress test, small perfusion defect versus artifact noted on myocardial perfusion part He is adamantly denies any chest pain, shortness of breath, any exercise limiting symptoms Admits good functional/aerobic capacity greater than 6-8 METS ASCVD- Circulation shows 10-year risk of CVD is 7.3%, 10-year risk of CVD with a hospital risk factors is 2.6% and his lifetime risk of CVD is 50%, Recommendations are statin initiation Therefore, Lipitor 40 mg prescribed with repeat hepatic function and lipid level in 2 to 3 months and he voiced understanding to call office for any myalgias or concerning symptoms [facility] 03-04-2023 Note Hypertension is Cont rolled 142/82 We will add hydrochlorothiazide for blood pressure management and some lower extremity edema and slight diuretic effect Repeat BMP in 1 to 2 weeks to check kidney function and electrolytes [facility] 03-04-2023 Note RCRI- 0???points Cla ss I Risk 3.9???% 30-day risk of , [place], or cardiac arrest From a cardiac perspective pt may proceed with planned sinus surgery- he is a low risk for a low risk procedure. Please monitor hemodynamics carefully and prevent any major fluid shifts. Reviewed EKG, echocardiogram- Completely normal without concerns, Lexiscan stress test which showed no ischemia no EKG changes no concerning symptoms small perfusion defect which may be artifact- Without any concerning cardiac symptoms currently. Patient has good aerobic functional capacity greater than 6-8 METS [facility] 03-04-2023 Note Recommended weight l oss with heart healthy diet and regular exercise regimen and he voiced understanding [facility] 03-04-2023 Note Follow-up with PCP f or glycemic management [facility] 03-04-2023 Note [facility] CARDIOLOGY PROGR ESS NOTE HPI: Reina Moulton is a 52 y.o. male here for New pt for abnormal stress test and Surgery evaluation for sinus surgery HPI Pleasant 52-year-old male presents to clinic as new patient for preop surgical evaluation and noted abnormal stress test after noted abnormal EKG in PCPs office. Patient has known history of diabetic type II, morbid obesity, sleep apnea untreated states he is unable to wear CPAP at night he has tried multiple times, GERD. Adamantly denies any chest pain or tightness in the past, denies shortness of breath with exertion or rest, denies orthopnea, palpitations, syncope. States that he had to walk up 1-2 flights of stairs or around a block he would not be limited by shortness of breath or chest pain. PMH: DM type 2, GERD, JENNIFER does not wear Cpap, morbid obesity PSH- no pertinent cardiac surgery or procedure in the past FMH: father: [place] and CAD prior to age 50yo- - DM, HTN, HPL; Mom- Cancer; Social- never a smoker, denied illicit drug use; Admits about 1 x month- mixed drinks Review of Systems Constitutional: Negative. Respiratory: Negative. Cardiovascular: Negative. Neurological: Negative. All other systems reviewed and are negative. Visit Vitals BP 142/82 (BP Location: Left arm, Patient Position: Sitting) Pulse 98 Ht 1.778 m (5' 10 ) Wt (!) 147 kg (323 lb) SpO2 92% BMI 46.35 kg/m??? Smoking Status Never BSA 2.69 m??? No Known Allergies Medications: Current Outpatient Medications on File Prior to Visit Medication Sig Dispense Refill ARIPiprazole (Abilify) 20 mg tablet Take 20 mg by mouth in the morning. cholecalciferol (Vitamin D-3) 25 MCG (1000 UT) capsule Take 1,000 Units by mouth in the morning. clonazePAM (KlonoPIN) 0.5 mg tablet Take 0.5 mg by mouth if needed in the morning, at noon, and at bedtime. Creon 12,000-38,000 -60,000 unit capsule take 1 capsule by mouth every morning then 1 capsule AT 12PM then... (REFER TO PRESCRIPTION NOTES). diphenoxylate-atropine (Lomotil) 2.5-0.025 mg tablet Take 1 tablet by mouth if needed in the morning, at noon, in the evening, and at bedtime. finasteride (Proscar) 5 mg tablet guselkumab (Tremfya) 100 mg/mL syringe ibuprofen 800 mg tablet Take 800 mg by mouth every 6 (six) hours if needed. imipramine (Tofranil) 50 mg tablet 25 tablets. magnesium oxide 400 mg magnesium capsule Take 500 mg by mouth in the morning. metaxalone (Skelaxin) 800 mg tablet Take 800 mg by mouth in the morning, afternoon, and at bedtime. mirabegron 50 mg tablet extended release 24 hr Take 50 mg by mouth in the morning. semaglutide (Rybelsus) 7 mg tablet Take 7 mg by mouth in the morning. solifenacin (VESIcare) 5 mg tablet Take 5 mg by mouth in the morning. tamsulosin (Flomax) 0.4 mg 24 hr capsule No current facility-administered medications on file prior to visit. Physical Exam: Constitutional: Appearance: Normal appearance. Without apparent distress, obese HENT: Head: Normocephalic and atraumatic. Nose: Nose normal. Mouth/Throat: Mouth: Mucous membranes are moist. Eyes: Extraocular Movements: Extraocular movements intact. Conjunctiva/sclera: Conjunctivae normal. Neck: Vascular: No JVD. Cardiovascular: Rate and Rhythm: Normal rate and regular rhythm. Pulses: Dorsalis pedis pulses are 3 on the right side and 3on the left side. Posterior tibial pulses are 3 on the right side and 3 on the left side. Heart sounds: Normal heart sounds, S1 normal and S2 normal. Pulmonary: Effort: Pulmonary effort is normal. Breath sounds: Normal breath sounds. Abdominal: General: Bowel sounds are normal. Palpations: Abdomen is soft. Musculoskeletal: General: Normal range of motion. Cervical back: Normal range of motion. Right lower le+ pitting edema. Left lower le+ pitting edema. Skin: General: Skin is warm and dry. BLE hemosideran skin changes Capillary Refill: Capillary refill takes less than 2 seconds. Neurological: General: No focal deficit present. Mental Status: he is alert and oriented to person, place, and time. Psychiatric: Mood and Affect: Mood normal. Behavior: Behavior normal. Thought Content: Thought content normal. Judgment: Judgment normal. Labs:01/04/23 Renal and liver function normal Comprehensive metabolic panel Order: [id number] Ref Range & Units 1 mo ago Sodium 134 - 146 mmol/L 141 Potassium, Bld 3.5 - 5.0 mmol/L 4.2 Chloride 98 - 109 mmol/L 103 CO2 22 - 32 mmol/L 28 Anion gap 5 - 15 mmol/L 10 BUN 5 - 23 mg/dL 14 Creatinine 0.60 - 1.30 mg/dL 0.80 Comment: METHOD TRACEABLE TO IDMS STANDARD Glucose 65 - 99 mg/dL 67 Calcium 8.5 - 10.5 mg/dL 9.0 Total Protein 6.0 - 8.0 g/dL 6.9 Albumin 3.2 - 5.3 g/dL 4.0 Alkaline Phosphatase 39 - 130 U/L 110 AST 0 - 41 U/L 21 ALT 0 - 40 U/L 18 Total bilirubin 0.3 - 1.2 mg/dL 0.2 Low eGFR (CKD-EPI)non-race dependent >59 ml/min/1.73sq.m >90 01/21/23 CBC stable- noted ane (more content not included)... [facility] 03-04-2023 Note New patient here to establish care. Ref from Dr. Lopez for abnormal stress test. Test was ordered prior to sinus surgery with Dr. Wilson. He denies chest pain. Does get SOB with exertion, which he thinks is due to deconditioning. He is noncompliant with cpap therapy for JENNIFER. Father had multiple [place]'s w/ PCI when he was mid-late 40's. Says he saw infant childcare provider in [place] a few years ago and was sent somewhere else for a test. Patient states it was normal and never required further follow up. Review of Systems Cardiovascular: Positive for dyspnea on exertion. Skin: Positive for color change. Musculoskeletal: Positive for arthritis, back pain and joint pain. All other systems reviewed and are negative. [facility] 10-12-2022 Note EXAM: XR CHEST 2 V HISTORY: Pre-surgery evaluation . Productive cough intermittently for the past 6 months. COMPARISON: 06/14/2020 TECHNIQUE: Upright PA and lateral chest x-ray FINDINGS: The heart is borderline enlarged without evidence of cardiac decompensation. No acute infiltrate, effusion or pneumothorax is identified. Degenerative changes are seen in the spine. IMPRESSION: No acute infiltrate or evidence of cardiac decompensation. The overall appearance of the chest is unchanged. Electronically authenticated by: JAMILA MA Date: 2022-10-12 14:28 [facility] 09-28-2021 Evaluation note Encounter Date Diagnosis Assessment Notes Sep, Obstructive sleep apnea (adult) (pediatric) (ICD-10 - G47.33) He presents with known history of sleep apnea, but with CPAP intolerance and and expressed interest in Inspire Therapy. He has previous documented history of severe obstructive sleep apnea with an AHI of 129 in 2012 since that time his body weight is increased, so it is almost certain that he continues to have severe obstructive sleep apnea and likely has an AHI higher than what was recorded then. While he does have some interest in Inspire Therapy, both his apnea-hypopnea index and his BMI of 46 exceed the requirements for that intervention... However he continues to have sleep impairment and does have side effects from his untreated sleep apnea. I also note that his original titration study and treatment used fixed pressure CPAP and a traditional full facemask, so it is possible more modern interventions could be better tolerated. After discussion he is willing to try again using auto CPAP and a smaller fitted mask. We will get home sleep testing and anticipate starting auto CPAP with a modern modified fullface mask should it prove necessary. In the meantime he will continue efforts at progressive weight loss, both for direct treatment of his sleep apnea and to possibly qualify for inspire therapy down the road. Sep, BMI 45.0-49.9, adult (ICD-10 - Z68.42) Weight reduction is broadly beneficial and can have substantial positive impact on obstructive sleep apnea. He is encouraged to work with lifestyle changes that could help with progressive weight loss and thereby improve sleep apnea, general health, and potentially help qualify for inspire therapy Sep, Intolerance of continuous positive airway pressure (CPAP) ventilation (ICD-10 - Z78.9) He previously had difficulty using a traditional fullface mask and fixed pressure CPAP. 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 These findings can add to daytime sleepiness and contribute to suboptimal symptom control Sep, Essential (primary) hypertension (ICD-10 - I10) Sep, Other The diagnosis of Sleep Apnea was reviewed in detail, and handout materials were provided. The patient expresses good understanding, We also reviewed the medical and accident risks associated with sleep apnea and excessive fatigue. The patient is advised to adhere to a proper sleep hygiene schedule and to assure adequate total sleep time; The patient was advised to continue efforts at progressive weight loss, including decreased overall caloric intake quantity and better food choices.The patient was advised to call or return any difficulties arise, including changes in symptoms and/or problems with treatment [employer] Other Evaluation noteNo assessment information available [facility] Work Phone: Evaluation note* Diagnosis Type 2 diabetes mellitus without complication, without long-term current use of insulin ([facility])- Primary Morbid obesity ([facility]) Morbid obesity Bipolar 1 disorder, depressed ([facility]) Obstructive sleep apnea syndrome Obstructive sleep apnea (adult) (pediatric) Exocrine pancreatic insufficiency Other specified disease of pancreas B12 deficiency Enuresis documented in this encounter [facility]* Diagnosis Bipolar 1 disorder, depressed ([facility])- Primary Primary hypertension Unspecified essential hypertension Psoriasis Other psoriasis Hypercholesterolemia Pure hypercholesterolemia documented in this encounter [facility] [employer] SystemHistory general Narrative - Reported* Type Description Date Medical History HTN (hypertension) Medical History Hypercholesterolemia Medical History psoriasis Medical History sleep apnea Medical History diabetes Medical History depression Surgical History appendectomy Surgical History hernia Surgical History colonoscopy Surgical History fracture repair Surgical History arthroscopic knee surgery Surgical History CTS Surgical History kidney stones Surgical History gastric bypass Hospitalization History see above [employer] Other InstructionsNot on filedocumented in this encounter [employer] IndustriesInstructionsNot on filedocumented in this encounter [facility] Summary Purpose Family History No Family History Records FoundNo Family History Records FoundNo Family History Records FoundNo Family History Records FoundNo Family History Records FoundNo Family History Records FoundNo Family History Records FoundNo Family History Records FoundNo Family History Records Found Advance Directives No Advanced Directives Records Found Advance Directive Response Recorded Date/ Time Advance Directives No September 23, 022 1:57pm Chief Complaint and Reason for Visit Chief Complaint inspire therapy-stud ies at [place]-not on pap Chief Complaint inspire therapy-stud ies at [place]-not on pap Unspecified sleep apnea Chief Complaint Sleep apnea 31-90 da y follow up Additional Source Comments (unrecognized sect ion and content) No Status Records FoundNo Status Records FoundNo Status Records FoundNo Status Records FoundNo Status Records FoundNo Status Records FoundNo Status Records FoundNo Status Records FoundNo Status Records Found INFORMATION SOURCE (unrecogn ized section and content) DATE CREATED AUTHOR 03/25/2019 [facility] DATE CREATED AUTHOR AUTHOR'S ORGANIZ ATION 09/11/2021 [facility] dical Specialist DATE CREATED AUTHOR AUTHOR'S ORGANIZ ATION 10/17/2022 [facility] DATE CREATED AUTHOR AUTHOR'S ORGANIZ ATION 04/19/2023 [facility] DATE CREATED AUTHOR AUTHOR'S ORGANIZ ATION 07/25/2023 [facility] dical Specialists EPIC DATE CREATED AUTHOR AUTHOR'S ORGANIZ ATION 08/05/2023 [facility] DATE CREATED AUTHOR AUTHOR'S ORGANIZ ATION 08/05/2023 [facility] DATE CREATED AUTHOR AUTHOR'S ORGANIZ ATION 08/13/2023 [facility] DATE CREATED AUTHOR AUTHOR'S ORGANIZ ATION 09/29/2023 [facility] Care Teams (unrecognized sec tion and content) Team Status: Inactive Member Role Status Dates Kuldeep Barrett MD Primary Care Provider Active Reed Helm MD Attending Provider Active Team Status: Active Member Role Status Dates Kuldeep Barrett MD Primary Care Provider Active Penology Professor Relationship Specialty Start Date End Date Blaine Lopez DO [address] [place] [address] PCP - General Internal Medicine 02/01/23 Penology Professor Relationship Specialty Start Date End Date Blaine Lopez DO [address] [place] [address] PCP - General Internal Medicine 02/01/23 Goals (unrecognized section and content) Goals may be documented in a n alternate sectionGoals may be documented in an alternate sectionNo InformationGoals may be documented in an alternate sectionNot on filedocumented as of this encounterNot on filedocumented as of this encounter Reason for Visit (unrecogniz ed section and content) Reason Comments Diabetes FOR RECORDS PERTAINING TO PATIENTS WHO ARE OR HAVE BEEN ENROLLED IN A CHEMICAL DEPENDENCY/SUBSTANCEABUSE PROGRAM, SOME INFORMATION MAY BE OMITTED. This clinical summary was aggregated from multiple sources. Caution should be exercised in using it in the provision of clinical care. This summary normalizes information from multiple sources, and as a consequence, information in this document may materially change the coding, format and clinical context of patient data. In addition, data may be omitted in some cases. CLINICAL DECISIONS SHOULD BE BASED ON THE PRIMARY CLINICAL RECORDS. [facility]. provides no warranty or guarantee of the accuracy or completeness of information in this document.
--- NOTE | 2023-10-04 19:25 | ED_ITS ---
HPI - Back Pain/Injury General Chief Complaint: Back Pain/Injury Stated Complaint: Back Pain Time Seen by Provider: 10/04/23 19:20 Source: patient Mode of arrival: walk-in History of Present Illness HPI Narrative: 53-year-old male resents for right lower back pain. No injury. He has a history of chronic back issues and has had extensive workup including x-rays and MRI. He was told it is muscular. He had been in pain management until about a year ago and was told at that time that it is muscular and there is not anything that pain management could do for him any longer. He has been taking ibuprofen at home. There is been no injury and it does not radiate. No dysuria or hematuria. It is worse when he moves. Related Data Home Medications ?Medication ?Instructions ?Recorded ?Confirmed aripiprazole 20 mg tablet 20 mg PO QDAY 01/21/23 04/07/23 calcium carbonate 600 mg-vitamin 1 tab PO DAILY 01/21/23 04/07/23 D3 5 mcg (200 unit) tablet (Calcium 600 + D(3)) cholecalciferol (vitamin D3) 1,250 50,000 unit PO .twice weekly 01/21/23 04/07/23 mcg (50,000 unit) capsule cholecalciferol (vitamin D3) 25 1,000 unit PO DAILY 01/21/23 01/21/23 mcg (1,000 unit) capsule clonazepam 0.5 mg tablet 0.5 mg PO Q12H 01/21/23 04/07/23 diphenoxylate-atropine 2.5 1 tab PO Q6H 01/21/23 04/07/23 mg-0.025 mg tablet (Lomotil) finasteride 5 mg tablet 5 mg PO QDAY 01/21/23 04/07/23 guselkumab 100 mg/mL subcutaneous 100 mg subcut 01/21/23 auto-injector (Tremfya) ibuprofen 800 mg tablet (IBU) 800 mg PO Q12H 01/21/23 04/07/23 imipramine HCl 25 mg tablet 25 mg PO BID 01/21/23 04/07/23 magnesium citrate 100 mg capsule 100 mg PO DAILY 01/21/23 04/07/23 metaxalone 800 mg tablet 800 mg PO TID 01/21/23 04/07/23 mirabegron 50 mg tablet,extended 50 mg PO Q24H 01/21/23 04/07/23 release 24 hr (Myrbetriq) potassium gluconate 595 mg (99 mg) 595 mg PO DAILY 01/21/23 04/07/23 tablet solifenacin 10 mg tablet 5 mg PO QDAY 01/21/23 04/07/23 tamsulosin 0.4 mg capsule 0.4 mg PO Q24H 01/21/23 04/07/23 wplehz-mbhshrsx-ievojlu 1 cap PO TID 04/07/23 04/07/23 12,000-38,000-60,000 unit capsule,delayed rel (Creon) Previous Rx's ?Medication ?Instructions ?Recorded acetaminophen 300 mg-codeine 30 mg 1 tab PO Q6H PRN pain 5 days #20 10/04/23 tablet tabs ibuprofen 800 mg tablet 800 mg PO Q8H PRN pain #20 tabs 10/04/23 Allergies Allergy/AdvReac Type Severity Reaction Status Date / Time No Known Drug Allergies Allergy Verified 01/21/23 11:17 Review of Systems ROS Narrative A ten point review of systems is negative except as noted above. [facility] Medical History (Updated 10/04/23 @ 20:22 by Henri Fung MD) Diarrhea ?R19.7 - Diarrhea, unspecified (ICD-10) Back pain ?M54.9 - Dorsalgia, unspecified (ICD-10) Arthritis ?M19.90 - Unspecified osteoarthritis, unspecified site (ICD-10) Depression ?F32.A - Depression, unspecified (ICD-10) Bipolar disorder ?F31.9 - Bipolar disorder, unspecified (ICD-10) Anxiety ?F41.9 - Anxiety disorder, unspecified (ICD-10) Sleep apnea ?G47.30 - Sleep apnea, unspecified (ICD-10) Kidney stones ?N20.0 - Calculus of kidney (ICD-10) Heart murmur ?R01.1 - Cardiac murmur, unspecified (ICD-10) High cholesterol ?E78.00 - Pure hypercholesterolemia, unspecified (ICD-10) Hypertension ?I10 - Essential (primary) hypertension (ICD-10) Diabetes ?E11.9 - Type 2 diabetes mellitus without complications (ICD-10) Deviated septum ?J34.2 - Deviated nasal septum (ICD-10) Nasal turbinate hypertrophy ?J34.3 - Hypertrophy of nasal turbinates (ICD-10) Chronic maxillary sinusitis ?J32.0 - Chronic maxillary sinusitis (ICD-10) Surgical History (Updated 01/21/23 @ 11:30 by Lupe Garcia NP) History of carpal tunnel release ?Z98.890 - Other specified postprocedural states (ICD-10) History of gastric bypass ?Z98.84 - Bariatric surgery status (ICD-10) History of appendectomy ?Z90.49 - Acquired absence of other specified parts of digestive tract (ICD- 10) History of surgery on lower extremity ?Z98.890 - Other specified postprocedural states (ICD-10) History of arthroscopy of knee ?Z98.890 - Other specified postprocedural states (ICD-10) History of hernia repair ?Z98.890 - Other specified postprocedural states (ICD-10) ?Z87.19 - Personal history of other diseases of the digestive system (ICD-10) Family History (Updated 01/21/23 @ 11:30 by Lupe Garcia NP) Other Family history of diabetes mellitus Family history of heart disease Family history of hypertension Family history of myocardial infarction Family history of skin cancer Family history of stroke Social History (Updated 01/21/23 @ 11:26 by Lupe Garcia NP) Within the past year, how often did you have a drink containing alcohol: m onthly or less Smoking status: Never smoker Non-prescribed substance use: denies use Previous occupational history: [employer] Highest level of school completed/degree received: high school graduate Exam Narrative Exam Narrative: Nurses note and vital signs reviewed and patient is not hypoxic. General: The patient appears in no acute distress. He is sitting upright on the edge of the cart. Skin: Warm, dry, no pallor noted. There is no rash noted. Head: Normocephalic, atraumatic Eye: Normal conjunctiva, no drainage Ears, Nose, Mouth, and Throat: oral mucosa is moist. Nares patent. Cardiovascular: Regular Rate and Rhythm Respiratory: Patient is in no distress, no accessory muscle use, lungs are clear to auscultation, no wheezing, rales or rhonchi Back: No bruise or rash present. No midline tenderness GI: Soft and nontender Musculoskeletal: The patient has no evidence of calf tenderness, no pitting edema, symmetrical pulses noted bilaterally Neurological: A&O, normal speech Psychiatric: Cooperative Constitutional Vital Signs, click to edit/add: Last Vital Signs Temp 98.7 F 10/04/23 19:06 Pulse 76 10/04/23 19:06 Resp 16 10/04/23 19:06 BP 136/69 10/04/23 19:06 Pulse Ox 97 10/04/23 19:06 O2 Del Method Room Air 10/04/23 19:06 Course Vital Signs Vital signs: Vital Signs Temperature 98.7 F 10/04/23 19:06 Pulse Rate 76 10/04/23 19:06 Respiratory Rate 16 10/04/23 19:06 Blood Pressure 136/69 10/04/23 19:06 Pulse Oximetry 97 10/04/23 19:06 Oxygen Delivery Method Room Air 10/04/23 19:06 Temperature 98.7 F 10/04/23 19:06 Pulse Rate 76 10/04/23 19:06 Respiratory Rate 16 10/04/23 19:06 Blood Pressure 136/69 10/04/23 19:06 Pulse Oximetry 97 10/04/23 19:06 Oxygen Delivery Method Room Air 10/04/23 19:06 MDM - Back Pain/Injury MDM Narrative Medical decision making narrative: The patient was given IM morphine and Norflex. My clinical impression is that this is muscular pain. Treatment diagnosis and follow-up were discussed with the patient. Differential Diagnosis Differential diagnosis: Likely lumbar radiculopathy, sciatica and strain of lumbar region Medical Records Attestation: I reviewed the patient's medical records. Discharge Plan Discharge Stand Alone Forms: Portal Instructions Chief Complaint: Back Pain/Injury Clinical Impression: Acute exacerbation of chronic low back pain Patient Disposition: Home, Self-Care Time of Disposition Decision: 20:22 Condition: Good Mode of Transportation: Private Vehicle Prescriptions / Home Meds: New acetaminophen-codeine 300-30 mg tablet 1 tab PO Q6H PRN (Reason: pain) 5 Days Qty: 20 0RF ibuprofen 800 mg tablet 800 mg PO Q8H PRN (Reason: pain) Qty: 20 0RF No Action aripiprazole 20 mg tablet 20 mg PO QDAY cholecalciferol (vitamin D3) 1,250 mcg (50,000 unit) capsule 50,000 unit PO .twice weekly clonazepam 0.5 mg tablet 0.5 mg PO Q12H diphenoxylate-atropine [Lomotil] 2.5-0.025 mg tablet 1 tab PO Q6H calcium carbonate-vitamin D3 [Calcium 600 + D(3)] 600 mg-5 mcg (200 unit) tablet 1 tab PO DAILY finasteride 5 mg tablet 5 mg PO QDAY ibuprofen [IBU] 800 mg tablet 800 mg PO Q12H imipramine HCl 25 mg tablet 25 mg PO BID magnesium citrate 100 mg capsule 100 mg PO DAILY metaxalone 800 mg tablet 800 mg PO TID Myrbetriq 50 mg tablet extended release 24 hr 50 mg PO Q24H potassium gluconate 595 mg (99 mg) tablet 595 mg PO DAILY cholecalciferol (vitamin D3) 25 mcg (1,000 unit) capsule 1,000 unit PO DAILY solifenacin 10 mg tablet 5 mg PO QDAY tamsulosin 0.4 mg capsule 0.4 mg PO Q24H Tremfya 100 mg/mL auto-injector 100 mg subcut Creon 12,000-38,000 -60,000 unit capsule,delayed release(DR/EC) 1 cap PO TID Rx Instructions: administer with meals and/or snacks Print Language: Guyanese Instructions: Chronic Pain (ED), Acute Low Back Pain (ED) Referrals: BLAINE LOPEZ [Primary Care Provider] - 1 week
[2023-10-04] MEDS: MORPHINE SULFATE 4 MG/ML VIAL 10 MG IM (19:54)
[2023-10-04] MEDS: ORPHENADRINE 60 MG/ 2 ML VIAL IM (19:55)
== END 2023-10-04 20:38 | disposition home or self-care (01) ==
PROVIDERS: Emergency Provider Emergency Medicine; PCP Internal Medicine
DX: M54.50 Low back pain, unspecified (principal); G89.29 Other chronic pain; M19.90 Unspecified osteoarthritis, unspecified site; F31.9 Bipolar disorder, unspecified; F41.9 Anxiety disorder, unspecified; G47.30 Sleep apnea, unspecified; Z87.442 Personal history of urinary calculi; E78.00 Pure hypercholesterolemia, unspecified; I10 Essential (primary) hypertension; E11.9 Type 2 diabetes mellitus without complications; Z98.84 Bariatric surgery status; Z90.49 Acquired absence of other specified parts of digestive tract; Z98.890 Other specified postprocedural states; Z79.899 Other long term (current) drug therapy
CPT/HCPCS: 96372; 99284

== ENCOUNTER 2023-10-05 16:02 | Emergency (ER) | payer OTHER, SELFPAY ==
[2023-10-05 16:06] VITALS: BP 119/79; PULSE 79; RESP 20; TEMP 36.5; O2SAT 97; BMI 43.0
--- OUTSIDE RECORDS SUMMARY | 2023-10-05 16:19 | XMS_ITS | CCD ---
Author Organization [facility] Care Team Providers Care Assistant Director Of Public Works Name Role Phone MD Kuldeep Barrett Primary Care Provider MD Reed Helm Attending Provider Reed Helm [...] DR CODY Attending Unavailable NADERER, DR KULDEEP Lnua Primary Care Unavailable TIMMIS, DR CODY Consulting [...] Class(es) Dates Sig (Normalized) Sig (Original) amylase 566971 unt / lipase 92609 unt / protease [id number] unt delayed release oral capsule (3 sources) Start: 08-02-2023 ejugaw-kcxtrodo-vdlrl se 40,000-126,000- 168,000 unit capsule,delayed release(DR/EC) Indications: Exocrine pancreatic insufficiency Take 1 Capful by mouth in the morning and 1 Capful at noon and 1 Capful in the evening. Take with meals. 270 capsule 1 08/02/2023 Active Start: 07-04-2023 End: 08-02-2023 take 1 capsule by mouth at mealtime xagsbo-lfgwacwg-bpwkayh (ZENPEP) 25,000-79,000- 105,000 unit capsule,delayed release(DR/EC) Indications: [...] complication, without long-term current use of insulin [place] Use daily as instructed 1 each 0 [...] complication, without long-term current use of insulin ([facility]) Inject 54 Units under the skin daily with breakfast. 90 mL 1 08/02/2023 Active Start: 07-05-2023 End: 08-02-2023 insulin glargine-lixisenatid e (SOLIQUA 100/33) 100 unit-33 mcg/mL insulin pen Indications: Type 2 diabetes mellitus without complication, without long-term current use of insulin ([facility]) Inject 40 Units under the skin [...] 08-02-2023 08-02-2023 Other aftercare (1 source) Other longterm (current) drug therapy; Translations: [[facility]] Onset: 12-30-2021 Episodic Other [...] Range Facility Office Visiton 09-28-2023 Follow-up visit [id number] Reina Moulton Jeremy 1970 M Date Provider Department Center 09/28/2023 Taniya8-HAYES LAWSON Family History Problem Relation Age of Onset Coronary artery disease Father Heart attack Father Family Status - Relation Status Age at Father Level of Service:66570 SD OFFICE/OUTPATIENT ESTABLISHED LOW MDM 20 MIN Normal [facility] COMPREHENSIVE METABOLIC PANE Daljit 08-02-2023 Albumin [Mass/Vol] 3.9 g/dL Normal 3.2-5.3 [facility] Comment on above: Performed By: #### C TARA 55000-9, HA1C #### [facility] ([id number]) [address], [address] [place] [address] ALP [Catalytic activity/Vol] 102 U/L Normal 39-130 [facility] Comment on above: Performed By: #### Dunia PACHECO, 69941-7, HA1C #### [facility] ([id number]) [address] [place] [address] ALT [Catalytic activity/Vol] 27 U/L Normal 0-40 [facility] Comment on above: Performed By: #### Dunia PACHECO 66777-5, HA1C #### [facility] ([id number]) [address] [place] [address] Anion gap [Moles/Vol] 6 mmol/L Normal 5-15 [facility] Comment on above: Performed By: #### C TARA, 29117-8, HA1C #### [facility] ([id number]) [address], [address] [place] [address] AST [Catalytic activity/Vol] 18 U/L Normal 0-41 [facility] Comment on above: Performed By: #### C TARA, 39386-2, HA1C #### [facility] ([id number]) [address], [address] [place] [address] Bilirubin [Mass/Vol] 0.3 mg/dL Normal 0.3-1.2 [facility] Comment on above: Performed By: #### Dunia PACHECO, 99443-4, HA1C #### [facility] ([id number]) [address], [address] [place] [address] Calcium [Mass/Vol] 9.3 mg/dL Normal 8.5-10.5 [facility] Comment on above: Performed By: #### C TARA, 78278-3, HA1C #### [facility] ([id number]) [address], [address] [place] [address] Chloride [Moles/Vol] 100 mmol/L Normal 98-109 [facility] Comment on above: Performed By: #### Dunia PACHECO, 71857-1, HA1C #### [facility] ([id number]) [address], [address] [place] [address] CO2 [Moles/Vol] 31 mmol/L Normal 22-32 [facility] Comment on above: Performed By: #### Dunia PACHECO, 40815-9, HA1C #### [facility] ([id number]) [address], [address] [place] [address] Creatinine [Mass/Vol] 0.85 mg/dL Normal 0.60-1.30 [facility] Comment on above: Result Comment: METH OD TRACEABLE TO IDMS STANDARD Performed By: #### Dunia PACHECO, 13771-8, HA1C #### [facility] ([id number]) [address], [address] [place] [address] eGFR (CKD-EPI) NON-RACE DEPENDENT >90 Normal >59 [facility] Comment on above: Result Comment: Reported eGFR is based on the CKD-EPI 1 equation that does not use a race coefficient. Performed By: #### Davis Duque MP31-1, HA1C #### [facility] ([id number]) [address], [address] [place] [address] Glucose [Mass/Vol] 137 mg/dL High 65-99 [facility] Comment on above: Performed By: #### Davis Duque MP31-1, JESSICA1C #### [facility] ([id number]) [address], [address] [place] [address] Potassium [Moles/Vol] 4.4 mmol/L Normal 3.5-5.0 [facility] Comment on above: Performed By: #### Dunia PACHECO 22160-3, HA1C #### [facility] ([id number]) [address], [address] [place] [address] Protein [Mass/Vol] 6.9 g/dL Normal 6.0-8.0 [facility] Comment on above: Performed By: #### Dunia PACHECO 21328-0, HA1C #### [facility] ([id number]) [address], [address] [place] [address] Sodium [Moles/Vol] 137 mmol/L Normal 134-146 [facility] Comment on above: Performed By: #### Davis Duque MP31-1, HA1C #### [facility] ([id number]) [address], [address] [place] [address] Urea nitrogen [Mass/Vol] 16 mg/dL Normal 5-23 [facility] Comment on above: Performed By: #### Davis Duque MP31-1, HA1C #### [facility] ([id number]) [address], [address] [place] [address] Comprehensive metabolic pane daljit 08-02-2023 Albumin [Mass/Vol] 3.9 g/dL 3.2 - 5.3 g/dL [facility] ALP [Catalytic activity/Vol] 102 U/L 39 - 130 U/L [facility] ALT No additional P-5'-P [Catalytic activity/Vol] 27 U/L 0 - 40 U/L [facility] Anion gap [Moles/Vol] 6 mmol/L 5 - 15 mmol/L [facility] AST [Catalytic activity/Vol] 18 U/L 0 - 41 U/L [facility] Bilirubin [Mass/Vol] 0.3 mg/dL 0.3 - 1.2 mg/dL [facility] Calcium [Mass/Vol] 9.3 mg/dL 8.5 - 10. 5 mg/dL [facility] Chloride [Moles/Vol] 100 mmol/L 98 - 109 mmol/L [facility] CO2 [Moles/Vol] 31 mmol/L 22 - 32 mmol/L [facility] Creatinine [Mass/Vol] 0.85 mg/dL 0.60 - 1.30 mg/dL [facility] Comment on above: METHOD TRACEABLE TO IDMO STANDARD eGFR (CKD-EPI)non-race dependent - PINF [facility] Comment on above: Reported eGFR is based on the CKD-EPI 2020 equation that does not use a race coefficient. Glucose [Mass/Vol] 137 mg/dL High 65 - 99 mg/dL [facility] Potassium [Moles/Vol] 4.4 mmol/L 3.5 - 5.0 mmol/L [facility] Protein [Mass/Vol] 6.9 g/dL 6.0 - 8.0 g/dL [facility] Sodium [Moles/Vol] 137 mmol/L 134 - 146 mmol/L [facility] Urea nitrogen [Mass/Vol] 16 mg/dL 5 - 23 mg/dL [facility] HGB A1C (GLYCO-HGB)on 2023 Glucose [Mass/Vol] 266 mg/dL Normal [facility] Comment on above: Performed By: #### C , 18485-8, HA1C #### [facility] ([id number]) [address] [place] [address] HbA1c (Bld) [Mass fraction] 10.9 % High 4.4-5.6 [facility] Comment on above: Result Comment: NOTE ADA Guidelines Result HgbA1c Normal : less than 5.7 % Prediabetes : 5.7 % to 6.4 % Diabetes : > 6.4 % Use with caution in patients with abnormal hemoglobin variants as the half-life of red blood cells and in vivo glycation rates are affected. Performed By: #### C TARA, 15985-4, HA1C #### [facility] ([id number]) [address] [place] [address] Hemoglobin A1con 08-02-2023 Average glucose Estimated from glycated hemoglobin (Bld) [Mass/Vol] 266 mg/dL [facility] HbA1c (Bld) [Mass fraction] 10.9 % High 4.4 - 5.6 % [facility] Comment on above: NOTE ADA Guidelines Result HgbA1c Normal : less than 5.7 % Prediabetes : 5.7 % to 6.4 % Diabetes : > 6.4 % Use with caution in patients with abnormal hemoglobin variants as the half-life of red blood cells and in vivo glycation rates are affected. Interpretation and review of laboratory results Abnormal [facility] Lipid 1996 panelon Cholesterol [Mass/Vol] 107 mg/dL Low 150 - 200 mg/dL [facility] Cholesterol in HDL [Mass/Vol] 43 mg/dL 39 - PINF mg/dL [facility] Comment on above: HDL <40 mg/dL - High Risk HDL > or = 40mg/dL- Desirable HDL >60 mg/dL - Negative Risk Cholesterol in LDL [Mass/Vol] 45 mg/dL NINF - 130 mg/dL [facility] Comment on above: LDL <100 mg/dL - Desirable LDL >160 mg/dL - High Risk Cholesterol in VLDL [Mass/Vol] 19 mg/dL 0 - 30 mg/dL [facility] Cholesterol.total/C holesterol in HDL [Mass ratio] 2.5 {ratio} 1.0 - 5.0 [facility] Triglyceride [Mass/Vol] 95 mg/dL 27 - 150 mg/dL [facility] Cholesterol [Mass/Vol] 107 mg/dL Low 150-200 [facility] Comment on above: Performed By: #### Dunia PACHECO, 21077-2, HA1C #### [facility] ([id number]) [address] [place] [address], [address] [place] [address] Cholesterol in HDL [Mass/Vol] 43 mg/dL Normal >39 [facility] Comment on above: Result Comment: HDL <40 mg/dL - High Risk HDL > or = 40mg/dL- Desirable HDL >60 mg/dL - Negative Risk Performed By: #### Dunia PACHECO, 58520-1, HA1C #### [facility] ([id number]) [address], [address] [place] [address] Cholesterol in LDL [Mass/Vol] 45 mg/dL Normal <130 [facility] Comment on above: Result Comment: LDL <100 mg/dL - Desirable LDL >160 mg/dL - High Risk Performed By: #### C TARA, 24830-0, HA1C #### [facility] ([id number]) [address], [address] [place] [address] Cholesterol in VLDL [Mass/Vol] 19 mg/dL Normal 0-30 [facility] Comment on above: Performed By: #### Dunia PACHECO, 02347-8, HA1C #### [facility] ([id number]) [address], [address] [place] [address] CHOLESTEROL:HDL 2.5 Normal 1.0-5.0 [facility] Comment on above: Performed By: #### Dunia PACHECO, 73184-0, HA1C #### [facility] ([id number]) [address], [address] [place] [address] Triglyceride [Mass/Vol] 95 mg/dL Normal 27-150 [facility] Comment on above: Performed By: #### Dunia PACHECO, 25416-6, HA1C #### [facility] ([id number]) [address], [address] [place] [address] No Panel Informationon 08-02 Interpretation and review of laboratory results Abnormal [facility] Office Visiton 05-23-2023 Follow-up visit [id number] Reina Moulton Jeremy 1970 M Date Provider Department [facility] Family History Problem Relation Age of Onset Coronary artery disease Father Heart attack Father Family Status - Relation Status Age at Father Level of Service:60627 SD OFFICE/OUTPATIENT ESTABLISHED LOW MDM 20-29 MIN Normal [facility] SURGICAL PATH REPORTon 04-18 SURGICAL PATH REPORT [facility] Department of Pathology [address] [place] [address] Name: REINA MOULTON : 1970 Financial [id number] Number: Gender Male Locatio BAYL SEDRICK : n: Admit 52 years Attending ESCOBAR WILSON JR Age: Provider: Ordering ESCOBAR WILSON JR Provider: Consulti Surgical Pathology Report ng: ACCESSION: COLLECTED DATE/TIME: RECEIVED DATE/TIME: PATHOLOGIST: [id number] 04/12/2023 11:32 EDT 04/13/2023 12:18 EDT TYSHAWN MCDERMOTT, PHANI Final Diagnosis Report for [facility] [place] [place] (A) RIGHT INFERIOR TURBINATE SOCK; EXCISION: [...] ____ Print 04/18/2023 09:28 EDT Number: Date/Time: [facility] Department of Pathology [address] [place] [id number] [phone] Name: REINA MOULTON : 1970 Financial [id number] Number: Gender Male [facility] : n: Admit 52 years Attending ESCOBAR WILSON JR Age: Provider: Ordering ESCOBAR WILSON JR Provider: Consulti Surgical Pathology Report ng: ACCESSION: COLLECTED DATE/TIME: RECEIVED DATE/TIME: PATHOLOGIST: [id number] 04/12/2023 11:32 EDT 04/13/2023 12:18 EDT TYSHAWN MCDERMOTT, [facility] Clinical Data (B) Left inferior turbinate sock (C) Right sinus content (D) Left sinus content VISIT #[id number] / Surgical outpatient Gross Description (A) Labeled [...] MP/sljazmín 04/13/2023 Tissue pathology report for: [facility], [address] [place] [address]; PATHOLOGY SERVICES PROVIDED BY [employer] (CLIA #[id number]) in cooperation with [facility] at [address] [place] [address] (CLIA #[id number]) ____ Print 04/18/2023 09:28 EDT Number: Date/Time: [facility] Department of Pathology [address] [place] [phone] Name: REINA MOULTON : 1970 Financial [id number] Number: Gender Male Jasmine VINSONEVUE : n: Admit 52 years Attending ESCOBAR WILSON JR Age: Provider: Ordering ESCOBAR WILSON JR Provider: Consulti Surgical Pathology Report ng: ACCESSION: COLLECTED DATE/TIME: RECEIVED DATE/TIME: PATHOLOGIST: [id number] 04/12/2023 11:32 EDT 04/13/2023 12:18 EDT TYSHAWN MCDERMOTT, PHANI Microscopic Diagnosis The final diagnosis is based on a microscopic exam of transportation services representative sections. Codes CPT CODE: 10024t5 + 06800v3 + [id number] ____ Print 04/18/2023 09:28 EDT Number: Date/Time: [facility] Comment on above: Performed By: #### 9 [id number] #### [facility] [address] [place] [address] Nursing Professor: Marky Stevens MD Orders Onlyon 03-15-2023 Orders Only [id number] Reina Moulton Jeremy 1970 M Date Provider Department Center 03/15/2023 [facility] Family History Problem Relation Age of Onset Coronary artery disease Father Heart attack Father Family Status - Relation Status Age at Father Normal [facility] 37on 03-04-2023 37 Start lipitor/atorvastatin for cholesterol- [...] to check kidney function and electrolytes Normal [facility] Office Visiton 03-04-2023 Follow-up visit [id number] Reina Moulton 1970 M Date Provider Department Center 03/04/2023 FLORA STANLEY [facility] Family History Problem Relation Age of Onset Coronary artery disease Father Heart attack Father Family Status - Relation Status Age at Father Level of Service:57904 SD OFFICE/OUTPATIENT NEW MODERATE MDM 45-59 MINUTES Normal [facility] CBC AUTO DIFFon 10-12-2022 BASO # 0.0 103/ul Normal 0.0-0.1 [facility] Comment on above: Performed By: #### C BC ####[facility] [address] [place] [address]Dr. Akira Thompson Basophils/100 WBC (Bld) 0.4 % Normal 0.2-2.0 [facility] Comment on above: Performed By: #### C BC ####[facility] [address] [place] [address]Dr. Akira Thompson EO # 0.3 103/ul Normal 0.0-0.7 [facility] Comment on above: Performed By: #### C BC ####[facility] [address] [place] [address]Dr. Akira Thompson Eosinophils/100 WBC (Bld) 2.7 % Normal 0.9-7.0 [facility] Comment on above: Performed By: #### C BC ####[facility] [address] [place] [address]Dr. Akira Thompson Erythrocyte distribution width (RBC) [Ratio] 15.4 % Critically high 11.0-15.0 [facility] Comment on above: Performed By: #### C BC ####[facility] [address] [place] [address]Dr. Akira Thompson Hematocrit (Bld) [Volume fraction] 35.1 % Critically low 42.0-54.0 [facility] Comment on above: Performed By: #### C BC ####[facility] [address] [place] [address]Dr. Akira Thompson Hemoglobin (Bld) [Mass/Vol] 10.9 g/dL Critically low 14.0-18.0 [facility] Comment on above: Performed By: #### C BC ####[facility] [address] [place] [address]Dr. Akira Thompson IG # 0.04 10e3/ul Critically high 0.00-0.03 [facility] Comment on above: Performed By: #### C BC ####[facility] [address] [place] [address]Dr. Akira Thompson IG % 0.4 % Normal 0.0-0.5 [facility] Comment on above: Performed By: #### C BC ####[facility] [address] [place] [address]Dr. Akira Thompson LYMPH # 1.6 103/ul Normal 1.2-3.8 [facility] Comment on above: Performed By: #### C BC ####[facility] [address] [place] [address]Dr. Akira Thompson Lymphocytes/100 WBC (Bld) 17.1 % Critically low 20.5-60.0 [facility] Comment on above: Performed By: #### C BC ####[facility] [address] [place] [address]Dr. Akira Thompson MANUAL DIFF REQ NO Normal [facility] Comment on above: Performed By: #### C BC ####[facility] [address] [place], [place] [address]Dr. Akira Thompson MCH (RBC) [Entitic mass] 25.3 pg Critically low 25.9-34.0 [facility] Comment on above: Performed By: #### C BC ####[facility] [address] [place] [id number]. Akira Thompson MCHC (RBC) [Mass/Vol] 31.1 g/dL Normal 29.9-35.2 [facility] Comment on above: Performed By: #### C BC ####[facility] [address] [place] [id number]. Akira Thompson MCV (RBC) [Entitic vol] 81.4 fL Normal 80.0-94.0 [facility] Comment on above: Performed By: #### C BC ####[facility] [address] [place] [id number]. Akira Thompson MONO # 0.8 103/ul Normal 0.3-0.8 [facility] Comment on above: Performed By: #### C BC ####[facility] [address] [place] [id number]. Akira Thompson Monocytes/100 WBC (Bld) 8.1 % Normal 1.7-12.0 [facility] Comment on above: Performed By: #### C BC ####[facility] [address] [place] [id number]. Akira Thompson NEUT # 6.6 103/ul Critically high 1.4-6.5 [facility] Comment on above: Performed By: #### C BC ####[facility] [address] [place] [id number]. Akira Thompson Neutrophils/100 WBC (Bld) 71.3 % Normal 43.0-75.0 [facility] Comment on above: Performed By: #### C BC ####[facility] [address] [place] [id number]. Akira Thompson Platelet mean volume (Bld) [Entitic vol] 8.4 fL Critically low 9.5-13.5 [facility] Comment on above: Performed By: #### C BC ####[facility] [address] [place] [id number]. Akira Jay PLT 378 103/ul Normal 150-450 [facility] Comment on above: Performed By: #### C BC ####[facility] [address] [place] [id number]. Akira Thompson RBC 4.31 106/ul Critically low 4.70-6.10 [facility] Comment on above: Performed By: #### C BC ####[facility] [address] [place] [id number]. Akira Thompson WBC 9.3 103/ul Normal 4.0-11.0 [facility] Comment on above: Performed By: #### C BC ####[facility] [address] [place] [address]Dr. Akira Thompson PROF CHEM 8 (BAS METB)on Anion gap [Moles/Vol] 10.6 mmol/L Normal [facility] Comment on above: Performed By: #### B MP ####[facility] [address] [place] [address]Dr. Akira Thompson Calcium [Mass/Vol] 9.0 mg/dL Normal 8.5-10.1 [facility] Comment on above: Performed By: #### B MP ####[facility] [address] [place] [address]Dr. Akira Thompson Chloride [Moles/Vol] 104 mmol/L Normal 98-107 [facility] Comment on above: Performed By: #### B MP ####[facility] [address] [place] [id number]. Akira Thompson CO2 [Moles/Vol] 31.6 mmol/L Normal 21.0-32.0 [facility] Comment on above: Performed By: #### B MP ####[facility] [address] [place] [address]Dr. Akira Thompson Creatinine [Mass/Vol] 0.77 mg/dL Normal 0.70-1.30 [facility] Comment on above: Performed By: #### B MP ####[facility] [address] [place] [id number]. Akira Thompson EGFR-AF [place] CITIZ[place] >60 Normal >=60 [facility] Comment on above: Performed By: #### B MP ####[facility] [address] [place] [id number]. Akira Thompson EGFR-NON AF [place] CITIZEN >60 Normal >=60 [facility] Comment on above: Performed By: #### B MP ####[facility] [address] [place] [address]Dr. Akira Thompson Glucose [Mass/Vol] 83 mg/dL Normal 74-106 [facility] Comment on above: Performed By: #### B MP ####[facility] [address] [place] [address]Dr. Akira Thompson Potassium [Moles/Vol] 4.2 mmol/L Normal 3.5-5.1 [facility] Comment on above: Performed By: #### B MP ####[facility] [address] [place], [place] [address]Dr. Akira Thompson Sodium [Moles/Vol] 142 mmol/L Normal 136-145 [facility] Comment on above: Performed By: #### B MP ####[facility] [address] [place], [place] [address]Dr. Akira Thompson Urea nitrogen [Mass/Vol] 13.0 mg/dL Normal 7.0-18.0 [facility] Comment on above: Performed By: #### B MP ####[facility] [address] [place], [place] [address]Dr. Akira Thompson Urea nitrogen/Creatinine [Mass ratio] 16.9 mg/mg Normal [facility] Comment on above: Performed By: #### B MP ####[facility] [address] [place], [place] [address]Dr. Akira Thompson PROTIMEon 10-12-2022 INR Coag (PPP) [Relative time] 0.93 {INR} Normal [facility] Comment on above: Performed By: #### P TT, PT ####[facility] [address] [place], [place] [address]Dr. Akira Thompson INR GUIDELINES SEE BELOW Normal [facility] Comment on above: Result Comment: LITA RED INR: 2.0 - 3.0 CONDITIONS NOT LISTED BELOW 2.5 - 3.5 FOR PROSTHETIC HEART VALVE REPLACEMENT 2.5 - 3.5 RECURRENT THROMBOSIS Performed By: #### P TT, PT ####[facility] [address] [place], [place] [address]Ws. Akira Thompson PT Coag (PPP) [Time] 9.9 s Normal 9.0-11.6 [facility] Comment on above: Performed By: #### P TT, PT ####[facility] [address] [place], [place] [address]Fo. Akira Thompson PTTon 10-12-2022 aPTT Coag (Bld) [Time] 27.3 s Normal 22.3-36.2 [facility] Comment on above: Performed By: #### P TT, PT ####[facility] [address] [place], [place] [address]Kt. Akira Thompson CT SINUSES WO CONon 09-18-19 [...] SINTIA JIMENEZ Date: 2022-09-17 10:40 Normal [facility] XR SINUSES 3 VIEWS OR GREATE Jorge [...] SINTIA JIMENEZ Date: 2022-08-11 16:43 Normal [facility] CBC AUTO DIFFon 04-28-2022 BASO # 0.0 103/ul Normal 0.0-0.1 [facility] Comment on above: Performed By: #### C BC #### [facility] [address] [place] [address] Dr. Akira Thompson Basophils/100 WBC (Bld) 0.4 % Normal 0.2-2.0 [facility] Comment on above: Performed By: #### C BC #### [facility] [address] [place] [address] Dr. Akira Thompson EO # 0.2 103/ul Normal 0.0-0.7 [facility] Comment on above: Performed By: #### C BC #### [facility] [address] [place] [address] Dr. Akira Thompson Eosinophils/100 WBC (Bld) 2.1 % Normal 0.9-7.0 [facility] Comment on above: Performed By: #### C BC #### [facility] [address] [place] [address] Dr. Akira Thompson Erythrocyte distribution width (RBC) [Ratio] 14.9 % Normal 11.0-15.0 [facility] Comment on above: Performed By: #### C BC #### [facility] [address] [place] [address] Dr. Akira Thompson Hematocrit (Bld) [Volume fraction] 35.4 % Critically low 42.0-54.0 [facility] Comment on above: Performed By: #### C BC #### [facility] [address] [place] [address] Dr. Akira Thompson Hemoglobin (Bld) [Mass/Vol] 11.0 g/dL Critically low 14.0-18.0 [facility] Comment on above: Performed By: #### C BC #### [facility] [address] [place] [address] Dr. Akira Thompson IG # 0.03 10e3/ul Normal 0.00-0.03 [facility] Comment on above: Performed By: #### C BC #### [facility] [address] [place] [address] Dr. Akira Thompson IG % 0.3 % Normal 0.0-0.5 [facility] Comment on above: Performed By: #### C BC #### [facility] [address] [place] [address] Dr. Akira Thompson LYMPH # 1.6 103/ul Normal 1.2-3.8 [facility] Comment on above: Performed By: #### C BC #### [facility] [address] [place] [address] Dr. Akira Thompson Lymphocytes/100 WBC (Bld) 16.9 % Critically low 20.5-60.0 [facility] Comment on above: Performed By: #### C BC #### [facility] [address] [place] [address] Dr. Akira Thompson MANUAL DIFF REQ NO Normal [facility] Comment on above: Performed By: #### C BC #### [facility] [address] [place] [address] Dr. Akira Thompson MCH (RBC) [Entitic mass] 25.7 pg Critically low 25.9-34.0 [facility] Comment on above: Performed By: #### C BC #### [facility] [address] [place] [address] Dr. Akira Thompson MCHC (RBC) [Mass/Vol] 31.1 g/dL Normal 29.9-35.2 [facility] Comment on above: Performed By: #### C BC #### [facility] [address] [place] [address] Dr. Akira Thompson MCV (RBC) [Entitic vol] 82.7 fL Normal 80.0-94.0 [facility] Comment on above: Performed By: #### C BC #### [facility] [address] [place] [address] Dr. Akira Thompson MONO # 0.6 103/ul Normal 0.3-0.8 [facility] Comment on above: Performed By: #### C BC #### [facility] [address] [place] [address] Dr. Akira Thompson Monocytes/100 WBC (Bld) 6.9 % Normal 1.7-12.0 [facility] Comment on above: Performed By: #### C BC #### [facility] [address] [place] [address] Dr. Akira Thompson NEUT # 6.7 103/ul Critically high 1.4-6.5 [facility] Comment on above: Performed By: #### C BC #### [facility] [address] [place] [address] Dr. Akira Thompson Neutrophils/100 WBC (Bld) 73.4 % Normal 43.0-75.0 [facility] Comment on above: Performed By: #### C BC #### [facility] [address] [place] [address] Dr. Akira Thompson Platelet mean volume (Bld) [Entitic vol] 9.6 fL Normal 9.5-13.5 [facility] Comment on above: Performed By: #### C BC #### [facility] [address] [place] [address] Dr. Akira Thompson PLT 378 103/ul Normal 150-450 [facility] Comment on above: Performed By: #### C BC #### [facility] [address] [place] [address] Dr. Akira Thompson RBC 4.28 106/ul Critically low 4.70-6.10 [facility] Comment on above: Performed By: #### C BC #### [facility] [address] [place] [address] Dr. Akira Thompson WBC 9.2 103/ul Normal 4.0-11.0 [facility] Comment on above: Performed By: #### C BC #### [facility] [address] [address] [address] Akira Thompson GLYCOHEMOGLOBIN A1Con 2021 ADA RECOMMENDATION SEE BELOW Normal [facility] Comment on above: Result Comment: ADA RECOMMENDED LIMIT 4.0 - 6.0 ADA THERAPEUTIC TARGET < 7.0 ACTION SUGGESTED > 7.0 Performed By: #### A 1C ####[facility] [address] [id number]. Akira Thompson Glucose [Mass/Vol] 151 mg/dL Normal [facility] Comment on above: Performed By: #### A 1C ####[facility] [address] [id number]. Akira Thompson HbA1c (Bld) [Mass fraction] 6.9 % Critically high 4.5-6.2 [facility] Comment on above: Performed By: #### A 1C ####[facility] [address] [id number]. Akira Thompson LIPID PROFILEon 04-28-2022 CHOL-HDL RATIO NORM SEE BELOW Normal [facility] Comment on above: Result Comment: 3.3 - 4.4 LOW RISK 4.4 - 7.1 AVERAGE RISK 7.1 - 11.0 MODERATE RISK >11.0 HIGH RISK Performed By: #### L IPID, BMP, LIVER, TSH #### [facility] [address] [address] [address] Akira Thompson Cholesterol [Mass/Vol] 148 mg/dL Normal <=200 [facility] Comment on above: Performed By: #### L IPID, BMP, LIVER, TSH #### [facility] [id number] Akira Thompson Cholesterol in HDL [Mass/Vol] 44 mg/dL Normal 40-60 [facility] Comment on above: Performed By: #### L IPID, BMP, LIVER, TSH #### [facility] [address] [address] [address] Akira Thompson Cholesterol in LDL [Mass/Vol] 85.8 mg/dL Normal [facility] Comment on above: Performed By: #### L IPID, BMP, LIVER, TSH #### [facility] [address] [address] [address] Akira Thompson Cholesterol.total/C holesterol in HDL [Mass ratio] 3.4 {ratio} Normal [facility] Comment on above: Performed By: #### L IPID, BMP, LIVER, TSH #### [facility] [address] [address] [address] Akira Thompson HDL NORMAL > or = 60 mg/dl - LO W CARDIOVASCULAR RISK <40 mg/dl - HIGH CARDIOVASCULAR RISK Normal [facility] Comment on above: Performed By: #### L IPID, BMP, LIVER, TSH #### [facility] [address] [address] [address] Akira Thompson LDL CALC NORMAL SEE BELOW Normal [facility] Comment on above: Result Comment: <100 mg/dl OPTIMAL 100 - 129 mg/dl NEAR OR ABOVE OPTIMAL 130 - 159 mg/dl BORDERLINE HIGH 160 - 189 mg/dl HIGH >190 mg/dl VERY HIGH Performed By: #### L IPID, BMP, LIVER, TSH #### [facility] [address] [address] [address] Akira Thompson Triglyceride [Mass/Vol] 91 mg/dL Normal <=150 [facility] Comment on above: Performed By: #### L IPID, BMP, LIVER, TSH #### [facility] [address] [address] [address] Akira Thompson VLDL CALC 18.2 mg/dL Normal [facility] Comment on above: Performed By: #### L IPID, BMP, LIVER, TSH #### [facility] [address] [address] [address] Akira Thompson LIVER PROFILEon 04-28-2022 Albumin [Mass/Vol] 3.4 g/dL Normal 3.4-5.0 [facility] Comment on above: Performed By: #### L IPID, BMP, LIVER, TSH #### [facility] [address] [address] [address] Akira Thompson Albumin/Globulin [Mass ratio] 0.9 {ratio} Normal [facility] Comment on above: Performed By: #### L IPID, BMP, LIVER, TSH #### [facility] [address] [place] [address] Dr. Akira Thompson ALP [Catalytic activity/Vol] 136 U/L Critically high 46-116 [facility] Comment on above: Performed By: #### L IPID, BMP, LIVER, TSH #### [facility] [address] [place] [address] Dr. Akira Thompson ALT [Catalytic activity/Vol] 30 U/L Normal 16-63 [facility] Comment on above: Performed By: #### L IPID, BMP, LIVER, TSH #### [facility] [address] [place] [address] Dr. Akira Thompson AST [Catalytic activity/Vol] 18 U/L Normal 15-37 [facility] Comment on above: Performed By: #### L IPID, BMP, LIVER, TSH #### [facility] [address] [place] [address] Dr. Akira Thompson BILI, CONJUGATED 0.1 mg/dL Normal 0.0-0.2 [facility] Comment on above: Performed By: #### L IPID, BMP, LIVER, TSH #### [facility] [address] [place] [address] Dr. Akira Thompson Bilirubin [Mass/Vol] 0.3 mg/dL Normal 0.2-1.0 [facility] Comment on above: Performed By: #### L IPID, BMP, LIVER, TSH #### [facility] [address] [place] [address] Dr. Akira Thompson Globulin (S) [Mass/Vol] 3.7 g/dL Normal [facility] Comment on above: Performed By: #### L IPID, BMP, LIVER, TSH #### [facility] [address] [place] [address] Dr. Akira Thompson Protein [Mass/Vol] 7.1 g/dL Normal 6.4-8.2 [facility] Comment on above: Performed By: #### L IPID, BMP, LIVER, TSH #### [facility] [address] [address] [address] Akira Thompson MICROALBUMIN, RAND URon - mALB 1.8 mg/L Normal <=30.0 [facility] Comment on above: Performed By: #### M ALBR #### [facility] [address] [address] [address] Akira Thompson PROF CHEM 8 (BAS METB)on Anion gap [Moles/Vol] 9.2 mmol/L Normal [facility] Comment on above: Performed By: #### L IPID, BMP, LIVER, TSH #### [facility] [address] [place] [address] Dr. Akira Thompson Calcium [Mass/Vol] 8.6 mg/dL Normal 8.5-10.1 [facility] Comment on above: Performed By: #### L IPID, BMP, LIVER, TSH #### [facility] [address] [address] [address] Akira Thompson Chloride [Moles/Vol] 105 mmol/L Normal 98-107 [facility] Comment on above: Performed By: #### L IPID, BMP, LIVER, TSH #### [facility] [address] [address] [address] Akira Thompson CO2 [Moles/Vol] 28.7 mmol/L Normal 21.0-32.0 [facility] Comment on above: Performed By: #### L IPID, BMP, LIVER, TSH #### [facility] [address] [place] [address] Dr. Akira Thompson Creatinine [Mass/Vol] 0.92 mg/dL Normal 0.70-1.30 [facility] Comment on above: Performed By: #### L IPID, BMP, LIVER, TSH #### [facility] [address] [place] [address] Dr. Akira Thompson EGFR-AF [place]IZ[place] >60 Normal >=60 [facility] Comment on above: Performed By: #### L IPID, BMP, LIVER, TSH #### [facility] [address] [address] [address] Akira Thompson EGFR-NON AF [place] >60 Normal >=60 [facility] Comment on above: Performed By: #### L IPID, BMP, LIVER, TSH #### [facility] [address] [address] [address] Akira Thompson Glucose [Mass/Vol] 120 mg/dL Critically high 74-106 [facility] Comment on above: Performed By: #### L IPID, BMP, LIVER, TSH #### [facility] [address] [address] [address] Akira Thompson Potassium [Moles/Vol] 3.9 mmol/L Normal 3.5-5.1 [facility] Comment on above: Performed By: #### L IPID, BMP, LIVER, TSH #### [facility] [address] [address] [address] Akira Thompson Sodium [Moles/Vol] 139 mmol/L Normal 136-145 [facility] Comment on above: Performed By: #### L IPID, BMP, LIVER, TSH #### [facility] [address] [address] [address] Akira Thomspon Urea nitrogen [Mass/Vol] 14.0 mg/dL Normal 7.0-18.0 [facility] Comment on above: Performed By: #### L IPID, BMP, LIVER, TSH #### [facility] [address] [address] [address] Akira Thompson Urea nitrogen/Creatinine [Mass ratio] 15.2 mg/mg Normal [facility] Comment on above: Performed By: #### L IPID, BMP, LIVER, TSH #### [facility] [address] [address] [address] Akira Thompson TSHon 04-28-2022 TSH 2.891 uIU/mL Normal 0.358-3.740 [facility] Comment on above: Performed By: #### L IPID, BMP, LIVER, TSH #### [facility] [address] [address] [address] Akira Thompson VITAMIN D 25 OHon 04-28-2022 VIT D 25-OH 52.3 ng/mL Normal [facility] Comment on above: Performed By: #### P [facility] ####[facility] [address] [id number]. Akira Thompson VIT D RANGES SEE BELOW Normal [facility] Comment on above: Result Comment: <20 ng/mL Vit D deficient 20 - <30 ng/mL Vit D insufficient 30 - 100 ng/mL Vit D sufficient >100 ng/mL Potential Toxicity Performed By: #### P [facility] ####[facility] [address] [id number]. Akira Thompson XR TIB_FIB LT 2Von 2 [...] by: SOTO OSHEA Date: 2021-12-28 22:08 Normal [facility] US MAL DOP LEG LTon 11-26-19 22 [...] by: SINTIA JIMENEZ Date: 2021-11-25 14:23 Normal [facility] GLYCOHEMOGLOBIN A1Con 2021 ADA RECOMMENDATION SEE BELOW Normal [facility] Comment on above: Result Comment: ADA RECOMMENDED LIMIT 4.0 - 6.0 ADA THERAPEUTIC TARGET < 7.0 ACTION SUGGESTED > 7.0 Performed By: #### A 1C ####[facility] [address] [id number]. Akira Thompson Glucose [Mass/Vol] 160 mg/dL Normal [facility] Comment on above: Performed By: #### A 1C ####[facility] [address] [place], [place] [address]Cq. Akira Thompson HbA1c (Bld) [Mass fraction] 7.2 % Critically high 4.5-6.2 [facility] Comment on above: Performed By: #### A 1C ####[facility] [address] [place], [place] [address]Gf. Akira Thompson Q - QUANTIFERON TB GOLD PLUS on 09-07-2021 MITOGEN-NIL >10.00 Normal [facility] [employer] Comment on above: Order Comment: [facility] performed at: [employer], Here@ [employer] [facility], [address] [place] [address], [address] [place] [address], [address] [place] [address], Negative Turner: Maykel Arizmendi MD [facility] Collection Date/Time: [facility] Results Received Date/Time: [facility] Reported Date/Time: Performed By: #### 3 [id number] #### [facility] [address] [place] [address] NIL 0.05 IU/mL Normal [facility] [employer] Comment on above: Order Comment: [facility] performed at: [employer], Here@ [employer] [facility], [address] [place] [address], [address] [place] [address], [address] [place] [address], Negative Turner: Maykel Arizmendi MD [facility] Date/Time: [facility] Results Received Date/Time: [facility] Reported Date/Time: Performed By: #### 3 [id number] #### [facility] [address] [place] [address] QUANTIFERON(R)-TB GOLD PLUS, 1 TUBE Negative Normal NEGATIVE [facility] [facility] Comment on above: Order Comment: [facility] performed at: [employer], [employer]@ [employer] [facility], [address] [place] [address], [address] [place] [address], [address] [place] [address], Negative Turner: Maykel Arizmendi MD [facility] Date/Time: [facility] Results Received Date/Time: [facility] Reported Date/Time: Result Comment: Nega tive test result. M. tuberculosis complex infection unlikely. Performed By: #### 3 [id number] #### [facility] [address] [place] [address] TB1-NIL <0.00 Normal [facility] Comment on above: Order Comment: [facility] performed at: [employer], [employer] [facility], [address] [place] [address], [address] [place] [address], [address] [place] [address], Negative Turner: Maykel Arizmendi MD [facility] Date/Time: [facility] Results Received Date/Time: [facility] Reported Date/Time: Performed By: #### 3 [id number] #### [facility] [address] [place] [address] TB2-NIL 0.02 IU/mL Normal [facility] Comment on above: Order Comment: [facility] performed at: [email or web address], Here@ [employer] [facility], [address] [place] [address], [address] [place] [address], [address] [place] [address], Negative Turner: Maykel Arizmendi MD [facility] Date/Time: [facility] [...] T-lymphocytes. For additional information, please refer to [email or web address]/faq/[email or web address] (This link is being provided for informational/ educational purposes only.) Performed By: #### 3 [id number] #### [facility] [address] [place] [address] CT CARDIAC SCORINGon 03-11 CT CARDIAC SCORING [...] SCREEN FOR CARDIOVASCULAR. COMPARISON: None. ACCESSION NUMBER(S): [id number] ORDERING CLINICIAN: GUSTAVO GILL TECHNIQUE: Using prospective [...] coronary heart disease events. According to the [place] [employer] Clinical Expert Consensus [...] modify other non-lipid coronary risk factors. Reference: Elverta P et al. Circulation. 2007; 115:402-426 Reading Seafood Clerk: Dr. Etienne Mary, Date: 03/23/2019 2:05 pm Electronically signed by: RAMILA ORDOÑEZ MD [facility] Vital Signs Date Time Vital Sign Value Performing Clinician Facility 08-02-2023 10:54-0500 Body height 177.8 cm Blaine Lopez DO Work Phone: [facility] [employer] 08-02-2023 10:54-0500 Body mass index (BMI) [Ratio] 42.86 kg/m2 Blaine Lopez DO [facility] 08-02-2023 10:54-0500 Body temperature 98.71 [degF] Blaine Guerras DO [facility] 08-02-2023 10:54-0500 Body weight 135.49 kg Blaine Lopez DO [facility] 08-02-2023 10:54-0500 Diastolic blood pressure 60 mm[Hg] Blaine Lopez DO [facility] 08-02-2023 10:54-0500 Heart rate 71 /min Blaine Guerras DO [facility] 08-02-2023 10:54-0500 SaO2% (BldA) [Mass fraction] 94 % Blaine Guerras DO Work Phone: [facility] [employer] 08-02-2023 10:54-0500 Systolic blood pressure 100 mm[Hg] Blaine Lopez DO [facility] 09-28-2021 12:30-0400 Body height 177.8 cm Reed Helm Other [employer] Other 09-28-2021 12:30-0400 Body mass index (BMI) [Ratio] 46.2 kg/m2 Reed Helm Other [employer] Other 09-28-2021 12:30-0400 Body temperature 97.1 [degF] Reed Volodymyr Other [employer] Other 09-28-2021 12:30-0400 Body weight 146.06 kg Reed eHlm Other [employer] Other 09-28-2021 12:30-0400 Diastolic blood pressure 88 mm[Hg] Reed Volodymyr Other [employer] Other 09-28-2021 12:30-0400 SaO2% (BldA) [Mass fraction] 95 % Reed Volodymyr Other [employer] Other 09-28-2021 12:30-0400 Systolic blood pressure 146 mm[Hg] Reed Volodymyr Other [employer] Other Encounters Encounter Date Encounter Type Care Provider Facility Start: 09-28-2023 End: 09-28-2023 ambulatory [facility] Start: 08-08-2023 Refill Adysan Jck [facility] Comment on above: Bipolar 1 disorder, depressed (CMS-HCC) (Primary Dx); Primary hypertension; Psoriasis; Hypercholesterolemia Start: 08-02-2023 End: 08-03-2023 ambulatory [facility] Start: 08-02-2023 End: 08-02-2023 ambulatory [facility] Start: 08-02-2023 End: 08-02-2023 Office outpatient visit 25 minutes [facility] Comment on above: Type 2 diabetes ileana itus without complication, without long- term current use of insulin (CMS-HCC) (Primary Dx); Morbid obesity ([facility]-HCC); Bipolar 1 disorder, depressed ([facility]-HCC); Obstructive sleep apnea syndrome; Exocrine pancreatic insufficiency; B12 deficiency; Enuresis Start: 07-25-2023 End: 07-25-2023 ambulatory JOSEPHINE GODFREY Not Available Start: 05-25-2023 ambulatory Tor Boucher acility:[facility] Start: 05-25-2023 End: 05-25-2023 ambulatory ESCOBAR WILSON Not Available Start: 05-23-2023 End: 05-23-[facility]23 [facility] Start: 04-12-2023 End: 04-13-2023 ambulatory ESCOBAR WILSON Facility:[facility] Start: 03-04-2023 Encounter for preprocedural cardiovascular examination [facility] Start: 03-04-2023 End: 03-04-2023 ambulatory [facility] Start: 03-04-2023 End: 03-04-2023 Encounter for preprocedural cardiovascular examination [facility] Start: 10-26-[address] ESCOBAR WILSON Facili ty:[facility] Start: 10-16-2022 Encounter for preprocedural cardiovascular examination DR ESCOBAR WILSON [facility] Start: 10-16-2022 Encounter for preprocedural laboratory examination DR ESCOBAR WILSON [facility] Start: 10-12-2022 End: 10-13-[address] ESCOBAR WILSON Facility:[facility] Start: 10-12-2022 End: 10-13-2022 Encounter for preprocedural cardiovascular examination DR ESCOBAR WILSON Facility:[facility] Start: 09-17-2022 End: 09-18-[address] ESCOBRA WILSON Facility:[facility] Start: 08-11-2022 End: 08-12-[address] ESCOBAR TIMMIS Facility:[facility] Start: 05-02-2022 Encounter for genera l adult medical examination without abnormal findings DR KULDEEP BARRETT [facility] Start: 04-28-2022 End: 04-29-[address] KULDEEP BARRETT Facility:[facility] Start: 04-28-2022 End: 04-29-2022 Encounter for general adult medical examination without abnormal findings DR KULDEEP BARRETT Facility:[facility] Start: 02-23-2022 End: 02-23-2022 Patient encounter procedure MD Kuldeep Barrett Work Phone: [facility] Start: 12-28-2021 End: 12-29-[address] REINA BAEZ Facility:[facility] Start: 11-25-2021 End: 11-25-[address] KULDEEP BARRETT Facility:[facility] Start: 11-03-2021 End: 11-04-[address] KULDEEP BARRETT Facility:[facility] Start: 10-20-2021 End: 10-20-2021 Patient encounter procedure MD Kuldeep Barrett Work Phone: [facility] Start: 09-28-2021 End: 09-28-2021 ambulatory Reed Helm Other [employer] Other Start: 09-28-2021 Office outpatient ne w 45 minutes Reed Helm [facility] Start: 09-28-2021 End: 09-28-2021 Patient encounter procedure MD Kuldeep Barrett Work Phone: [facility] Procedures Date Procedure Procedure Detail Performing Clinician Start: 08-02-2023 Adult depression scr eening assessment Blaine Lopez DO Work Phone: Start: 04-25-2023 Microalbumin [Mass/v olume] in Urine by Test strip Blaine Lopez DO Work Phone: Start: 04-28-[address] ESCOBAR WILSON Comment on above: Performed By: #### P [facility] ####[facility] [address] [place], [place] [address]Dr. Akira Thompson Start: 11-06-2020 Colonoscopy Blaine Araujochloe DO Work Phone: Plan of Treatment Date Care Activity Detail Author Start: 06-24-2033 DTaP,Tdap and Td Vaccines (2 - Td or Tdap) DTaP,Tdap and Td Vaccines (2 - Td or Tdap) [facility] Start: 08-02-2024 Adult BMI Screening Adult BMI Screening [facility] Start: 08-02-2024 Depression Screening Depression Screening [facility] Start: 08-02-2024 Tobacco Screening Tobacco Screening [facility] Start: 06-24-2024 Adult BMI Screening Adult BMI Screening [facility] Start: 06-24-2024 Depression Screening Depression Screening [facility] Start: 06-24-2024 Tobacco Screening Tobacco Screening [facility] Start: 04-25-2024 Urine screening for protein Urine Microalbumin [facility] Start: 01-05-2024 Diabetic foot examination Diabetic Foot Exam [facility] Start: 11-29-2023 End: 11-29-2023 Patient encounter procedure 11/29/2023 11:45 AM EDT Office Visit [facility] [address] [place] [id number] Alfonzo Lucero MD [address] [place] [address] [facility] Start: 11-07-2023 Screening for malignant neoplasm of colon Colonoscopy [facility] Start: 03-11-2023 COVID-19 Vaccine ( season) COVID-19 Vaccine ( season) [facility] Start: 2020 Administration of varicella zoster vaccine Zoster (Shingles) Vaccine (1 of 2) [facility] Start: 1988 Adult BMI Follow Up Plan Adult BMI Follow Up Plan [facility] Start: 1970 Glaucoma screening Diabetic Ophthalmology Exam [facility] Immunizations Immunization Date Immunization Notes Care Provider Fa cility 06-24-2023 influenza, injectabl e, quadrivalent, preservative free Blaine Lopez DO Work Phone: [facility] 06-24-2023 tetanus toxoid, redu juana diphtheria toxoid, and acellular pertussis vaccine, adsorbed Blaine Lopez DO Work Phone: [facility] 04-28-2022 influenza, injectabl e, quadrivalent, preservative free Blaine Lopez DO Work Phone: [facility] 07-13-2021 Influenza, injectabl e, Madin Mona Canine Kidney, preservative free, quadrivalent Blaine Lopez DO Work Phone: [facility] 04-11-2020 influenza, injectabl e, quadrivalent, preservative free Blaine Lopez DO Work Phone: [facility] Hospital Payers Date Payer Category Payer Self-pay [id number] 2021 Unknown 1970 Unknown [id number] 2.16.84 [id number] 1970 Unknown [id number] 2.16.84 0.1.316124.3.579.2.593 1970 Unknown [id number] 2.16.84 0.1.977964.3.579.2.593 1970 Unknown [id number] 2.16.84 0.1.146862.3.579.2.593 1970 Unknown [id number] 2.16.84 0.1.528116.3.579.2.593 1970 Unknown [id number] 2.16.84 0.1.078747.3.579.2.593 1970 Unknown [id number] 2.16.84 0.1.552917.3.579.2.593 1970 Unknown [id number] 2.16.84 0.1.778215.3.579.2.593 1970 Unknown [id number] 2.16.8 40.1.232077.3.579.2.159 1970 Unknown [id number] 2.16.84 0.1.676404.3.579.2.1259 1970 Unknown [id number] 2.16.840. 1.588670.3.579.2.1259 1970 Unknown [id number] 2.16.84 0.1.968736.3.579.2.1286 1970 Unknown [id number] 2.16.8 40.1.546143.3.579.2.1286 1959 Unknown [id number] 2.16. 840.1.743916.19 Unknown [id number] 2.16.8 40.1.190392.3.579.2.531 Social History Date Type Detail Facility [facility] [place] if ever smoked [employer] Other Start: 1970 Sex Assigned At Male [facility] Start: 08-21-2020 End: 08-02-2023 Sex Assigned At [employer] Other Start: 09-01-2022 Tobacco smoking stat [facility] Never smoked tobacco [facility] Start: 09-01-2022 Tobacco use and exposure Smokeless tobacco non-user [facility] Start: 08-02-2023 Alcohol intake Current drinke r of alcohol (finding) [facility] Start: 08-21-2020 End: 08-02-2023 History of Social function [facility] Adolescent depressio n screening assessment 0 [facility] Start: 10-29-2020 Alcohol Comment socially [facility] Start: 1970 Sex Assigned At Not on file P [facility] Medical Equipment Procedure Code Equipment Code Equipment Origin al Text Equipment Identifier Dates Use once daily in AM [id number] Star t: 05-08-2023 Use once daily [id number] Start: 05-03-2023 1 Unit by miscellaneous route in the morning. [id number] Start: 06-06-2023 Clinical Notes 09-28-2021 to 09-28-2023 [...] or procedure in the past [facility]: father: [place] and CAD prior to age 50yo- - [...] Thought content nor (more content not included)... [facility] 09-28-2023 Note Patient here for 4 m o follow up hypertension and hyperlipidemia. Had routine labs w/ lipid panel in Jul 2023. PCP did not make medication changes to cardiac meds. Patient denies chest pain, SOB, palpitations, and lightheadedness/syncope. States he's doing very well. [facility] 08-02-2023 History of Present illness Narrative IM PROGRESS NOTE Patient - Reina Moulton Age - 53 y.o. - 1970 ASSESSMENT & PLAN 1. Type 2 diabetes mellitus without complication, without long-term current use of [place] -currently on Soliqua 40 units daily -repeat [...] skin daily with breakfast. 2. Morbid obesity ([facility]) -BMI stable from previous -currently on G LP 1 agent -continue to work with Psychiatry to wean Abilify down to lowest working dose 3. Bipolar 1 disorder, depressed ([facility]) -overall stable. -currently on Abilify, and sertraline 4. Obstructive sleep apnea syndrome -still present -patient not currently wearing CPAP 5. Exocrine pancreatic insufficiency -symptoms improved but still not optimal, given that he is still taking Imodium daily [place] [address] [place] t.i.d. -continue to avoid using Imodium - wipwrx-xaoqwajc-cjywzsx 40,000-126,000- 168,000 unit capsule,delayed release(DR/EC); Take 1 [...] skin daily with breakfast., Disp: , Rfl: tyjrzv-xpikptqz-omwepny 40,000-126,000- 168,000 unit capsule,delayed release(DR/EC), Take 1 [...] Testing No results found. Blaine Lopez DO., [facility] Physicians Office: [phone] documented in this encounter [facility] 05-23-2023 Note Bmp [facility] 05-23-2023 Note [facility]TP CARDIOLOGY PROGR ESS [...] or procedure in the past [facility]: father: [place] and CAD prior to age 50yo- - [...] takes less th (more content not included)... [facility] 05-23-2023 Note Patient here for 3 m [...] All other systems reviewed and are negative. [facility] 03-15-2023 Note B/P remains uncontro lled per staff call to pt to review b/p log, therefore will add lisinopril 5 mg daily- staff to notify pt. Repeat BMP in 1 week. RTC as scheduled. Flora Caro EMPLOYMENT APPEALS EXAMINER Division of Cardiology, [facility] Ph- [phone] Pager- [phone] Email- [email or web address] 03-04-2023 Note Follow Up with PCP f or further management, strongly recommended weight loss [facility] 03-04-2023 Note ASCVD recommendation s to start statin we will start Lipitor moderate dose 40 mg daily In light that he is diabetic, obese, and 50% risk of cardiovascular disease in his lifetime Repeat hepatic function and lipid level in 2 to 3 months Discussed with patient to call office for any muscle aches, joint aches myalgias or any concerns after starting [facility] 03-04-2023 Note Reviewed stress test with patient [...] office for any myalgias or concerning symptoms [facility] 03-04-2023 Note Hypertension is Cont rolled 142/82 We will add hydrochlorothiazide for blood pressure management and some lower extremity edema and slight diuretic effect Repeat BMP in 1 to 2 weeks to check kidney function and electrolytes [facility] 03-04-2023 Note RCRI- 0???points Cla ss I Risk 3.9???% 30-day risk of , [place], or cardiac arrest From a cardiac perspective [...] aerobic functional capacity greater than 6-8 METS [facility] 03-04-2023 Note Recommended weight l oss with heart healthy diet and regular exercise regimen and he voiced understanding [facility] 03-04-2023 Note Follow-up with PCP f or glycemic management [facility] 03-04-2023 Note UTP CARDIOLOGY PROGR ESS NOTE [...] or procedure in the past [facility]: father: [place] and CAD prior to age 50yo- - [...] liver function normal Comprehensive metabolic panel Order: [id number] Ref Range & Units 1 mo ago [...] stable- noted ane (more content not included)... [facility] 03-04-2023 Note New patient here to establish care. Ref from Dr. Lopez for abnormal stress test. Test was ordered prior to sinus surgery with Dr. Wilson. He denies chest pain. Does get SOB with exertion, which he thinks is due to deconditioning. He is noncompliant with cpap therapy for JENNIFER. Father had multiple NJ's w/ PCI when he was mid-late 40's. Says he saw ethnic studies professor in [place] a few years ago and was sent somewhere else for a test. Patient states it was normal and never required further follow up. Review of Systems Cardiovascular: Positive for dyspnea on exertion. Skin: Positive for color change. Musculoskeletal: Positive for arthritis, back pain and joint pain. All other systems reviewed and are negative. [facility] 10-12-2022 Note EXAM: XR CHEST 2 V [...] authenticated by: JAMILA MA Date: 2022-10-12 14:28 [facility] 09-28-2021 Evaluation note Encounter Date Diagnosis Assessment [...] changes in symptoms and/or problems with treatment [employer] Other Evaluation noteNo assessment information available [facility] Work Phone: Evaluation note* Diagnosis Type 2 diabetes mellitus without complication, without long-term current use of insulin ([facility])- Primary Morbid obesity ([facility]) Morbid obesity Bipolar 1 disorder, depressed ([facility]) Obstructive sleep apnea syndrome Obstructive sleep apnea (adult) (pediatric) Exocrine pancreatic insufficiency Other specified disease of pancreas B12 deficiency Enuresis [facility]* Diagnosis Bipolar 1 disorder, depressed ([facility])- Primary Primary hypertension Unspecified essential hypertension Psoriasis Other psoriasis Hypercholesterolemia Pure hypercholesterolemia documented in this encounter [facility] [employer] SystemHistory general Narrative - Reported* Type Description Date Medical History HTN (hypertension) Medical History Hypercholesterolemia Medical History psoriasis Medical History sleep apnea Medical History diabetes Medical History depression Surgical History appendectomy Surgical History hernia Surgical History colonoscopy Surgical History fracture repair Surgical History arthroscopic knee surgery Surgical History CTS Surgical History kidney stones Surgical History gastric bypass Hospitalization History see above [employer] Other InstructionsNot on filedocumented in this encounter [employer]InstructionsNot on filedocumented in this encounter [facility] Summary Purpose Family History No Family History [...] Visit Chief Complaint inspire therapy-stud ies at [place]-not on pap Chief Complaint inspire therapy-stud ies at [place]-not on pap Unspecified sleep apnea Chief Complaint Sleep apnea 31-90 da y follow up Additional Source Comments (unrecognized sect ion and content) No Status Records FoundNo Status Records FoundNo Status Records FoundNo Status Records FoundNo Status Records FoundNo Status Records FoundNo Status Records FoundNo Status Records FoundNo Status Records Found INFORMATION SOURCE (unrecogn ized section and content) DATE CREATED AUTHOR 03/25/2019 [facility] DATE CREATED AUTHOR AUTHOR'S ORGANIZ ATION 09/11/2021 [facility] dical Specialist DATE CREATED AUTHOR AUTHOR'S ORGANIZ ATION 10/17/2022 [facility] DATE CREATED AUTHOR AUTHOR'S ORGANIZ ATION 04/19/2023 [facility] DATE CREATED AUTHOR AUTHOR'S ORGANIZ ATION 07/25/2023 [facility] dical Specialists EPIC DATE CREATED AUTHOR AUTHOR'S ORGANIZ ATION 08/05/2023 [facility] DATE CREATED AUTHOR AUTHOR'S ORGANIZ ATION 08/05/2023 [facility] DATE CREATED AUTHOR AUTHOR'S ORGANIZ ATION 08/13/2023 [facility] DATE CREATED AUTHOR AUTHOR'S ORGANIZ ATION 09/29/2023 [facility] Care Teams (unrecognized sec tion and content) Team Status: Inactive Member Role Status Dates Kuldeep Barrett MD Primary Care Provider Active Reed Helm MD Attending Provider Active Team Status: Active Member Role Status Dates Kuldeep Barrett MD Primary Care Provider Active Assistant Director Of Public Works Relationship Specialty Start Date End Date Blaine Lopez DO [address] [place] [address] PCP - General Internal Medicine 02/01/23 Assistant Director Of Public Works Relationship Specialty Start Date End Date Blaine Lopez DO [address] [place] [address] PCP - General Internal Medicine 02/01/23 Goals [...] BE BASED ON THE PRIMARY CLINICAL RECORDS. [employer] [facility]. provides no warranty or guarantee of the accuracy or completeness of information in this document.
[2023-10-05] MEDS: METHYLPREDNISOLONE SOD SUCC PF 125 MG/2 ML VIAL IM (18:24)
--- NOTE | 2023-10-05 18:26 | ED.BACK1 ---
Review of Systems ROS Constitutional Denies: fever or chills Ears, nose, mouth, and throat Denies: throat pain or nasal congestion Cardiovascular Denies: chest pain Respiratory Denies: shortness of breath or cough Gastrointestinal Denies: abdominal pain, nausea or vomiting Genitourinary Denies: painful urination Musculoskeletal Reports: back pain; Denies: neck pain Integumentary/Breast Denies: rash Neurological Denies: headache PFSH PFSH Medical History (Updated 10/05/23 @ 18:21 by MISHEL Harman) Diarrhea ?R19.7 - Diarrhea, unspecified (ICD-10) Back pain ?M54.9 - Dorsalgia, unspecified (ICD-10) Arthritis ?M19.90 - Unspecified osteoarthritis, unspecified site (ICD-10) Depression ?F32.A - Depression, unspecified (ICD-10) Bipolar disorder ?F31.9 - Bipolar disorder, unspecified (ICD-10) Anxiety ?F41.9 - Anxiety disorder, unspecified (ICD-10) Sleep apnea ?G47.30 - Sleep apnea, unspecified (ICD-10) Kidney stones ?N20.0 - Calculus of kidney (ICD-10) Heart murmur ?R01.1 - Cardiac murmur, unspecified (ICD-10) High cholesterol ?E78.00 - Pure hypercholesterolemia, unspecified (ICD-10) Hypertension ?I10 - Essential (primary) hypertension (ICD-10) Diabetes ?E11.9 - Type 2 diabetes mellitus without complications (ICD-10) Deviated septum ?J34.2 - Deviated nasal septum (ICD-10) Nasal turbinate hypertrophy ?J34.3 - Hypertrophy of nasal turbinates (ICD-10) Chronic maxillary sinusitis ?J32.0 - Chronic maxillary sinusitis (ICD-10) Surgical History (Updated 01/21/23 @ 11:30 by Lupe Garcia NP) History of carpal tunnel release ?Z98.890 - Other specified postprocedural states (ICD-10) History of gastric bypass ?Z98.84 - Bariatric surgery status (ICD-10) History of appendectomy ?Z90.49 - Acquired absence of other specified parts of digestive tract (ICD-10) History of surgery on lower extremity ?Z98.890 - Other specified postprocedural states (ICD-10) History of arthroscopy of knee ?Z98.890 - Other specified postprocedural states (ICD-10) History of hernia repair ?Z98.890 - Other specified postprocedural states (ICD-10) ?Z87.19 - Personal history of other diseases of the digestive system (ICD-10) Family History (Updated 01/21/23 @ 11:30 by Lupe Garcia NP) Other Family history of diabetes mellitus Family history of heart disease Family history of hypertension Family history of myocardial infarction Family history of skin cancer Family history of stroke Social History Within the past year, how often did you have a drink containing alcohol: monthly or less Smoking status: Never smoker Non-prescribed substance use: denies use Previous occupational history: [employer] Highest level of school completed/degree received: high school graduate Exam Narrative Exam Narrative: Gen.: Awake, alert, in no distress Head: Normocephalic, atraumatic ENT: Moist mucous membranes Respiratory: No respiratory distress Back: No midline tenderness of the T-spine or L-spine with diffuse mild tenderness of the right low back above the hip. Positive straight leg raise to the right leg. Extremities: Moves extremities equally, no injuries noted; Normal dorsiflexion and plantarflexion of the lower extremities with no decrease in sensation to the medial thighs Psych: Normal mood and affect Neuro: No focal neuro deficit Skin: Warm, dry, intact Constitutional Vital Signs, click to edit/add: Last Vital Signs Temp 97.7 F 10/05/23 16:06 Pulse 79 10/05/23 16:06 BP 119/79 10/05/23 16:06 Pulse Ox 97 10/05/23 16:06 O2 Del Method Room Air 10/05/23 16:06 Course Vital Signs Vital signs: Vital Signs Temperature 97.7 F 10/05/23 16:06 Pulse Rate 79 10/05/23 16:06 Blood Pressure 119/79 10/05/23 16:06 Pulse Oximetry 97 10/05/23 16:06 Oxygen Delivery Method Room Air 10/05/23 16:06 Temperature 97.7 F 10/05/23 16:06 Pulse Rate 79 10/05/23 16:06 Blood Pressure 119/79 10/05/23 16:06 Pulse Oximetry 97 10/05/23 16:06 Oxygen Delivery Method Room Air 10/05/23 16:06 MDM - Back Pain/Injury MDM Narrative Medical decision making narrative: I had a lengthy discussion with the patient regarding his symptoms, he declined imaging as there is no mechanism of injury or trauma and he has no radicular symptoms. He was instructed to take his home Skelaxin only at nighttime and given Robaxin for the daytime with tramadol, which he states has worked well for him in the past. Rest, ice, gentle stretching. Follow-up with PCP and return to the ER if symptoms change or worsen Medical Records Attestation: I reviewed the patient's medical records. Discharge Plan Discharge Stand Alone Forms: Portal Instructions Chief Complaint: Back Pain/Injury Clinical Impression: Lumbosacral strain Patient Disposition: Home, Self-Care Time of Disposition Decision: 18:21 Condition: Good Prescriptions / Home Meds: New methocarbamol 750 mg tablet 750 mg PO TID PRN (Reason: pain/spasm) Qty: 12 0RF tramadol 50 mg tablet 50 mg PO Q4H PRN (Reason: pain) 3 Days Qty: 15 0RF Rx Instructions: DX: M54.5 No Action aripiprazole 20 mg tablet 20 mg PO QDAY cholecalciferol (vitamin D3) 1,250 mcg (50,000 unit) capsule 50,000 unit PO .twice weekly clonazepam 0.5 mg tablet 0.5 mg PO Q12H diphenoxylate-atropine [Lomotil] 2.5-0.025 mg tablet 1 tab PO Q6H calcium carbonate-vitamin D3 [Calcium 600 + D(3)] 600 mg-5 mcg (200 unit) tablet 1 tab PO DAILY finasteride 5 mg tablet 5 mg PO QDAY ibuprofen [IBU] 800 mg tablet 800 mg PO Q12H imipramine HCl 25 mg tablet 25 mg PO BID magnesium citrate 100 mg capsule 100 mg PO DAILY metaxalone 800 mg tablet 800 mg PO TID Myrbetriq 50 mg tablet extended release 24 hr 50 mg PO Q24H potassium gluconate 595 mg (99 mg) tablet 595 mg PO DAILY cholecalciferol (vitamin D3) 25 mcg (1,000 unit) capsule 1,000 unit PO DAILY solifenacin 10 mg tablet 5 mg PO QDAY tamsulosin 0.4 mg capsule 0.4 mg PO Q24H Tremfya 100 mg/mL auto-injector 100 mg subcut Creon 12,000-38,000 -60,000 unit capsule,delayed release(DR/EC) 1 cap PO TID Rx Instructions: administer with meals and/or snacks acetaminophen-codeine 300-30 mg tablet 1 tab PO Q6H PRN (Reason: pain) 5 Days Qty: 20 0RF ibuprofen 800 mg tablet 800 mg PO Q8H PRN (Reason: pain) Qty: 20 0RF Print Language: Canadian Instructions: Muscle Strain (ED), Low Back Strain (ED) Additional Instructions: Take methocarbamol (Robaxin) during the day, take either methocarbamol or metalaxone at night Referrals: BLAINE LOPEZ [Primary Care Provider] - 1 week Discharge Date/Time: 10/05/23 18:34
== END 2023-10-05 18:34 | disposition home or self-care (01) ==
PROVIDERS: Emergency Provider Emergency Medicine Emergency Medical Services; PCP Internal Medicine
DX: S39.012A Strain of muscle, fascia and tendon of lower back, initial encounter (principal); Z98.890 Other specified postprocedural states; Z90.49 Acquired absence of other specified parts of digestive tract; Z98.84 Bariatric surgery status; M19.90 Unspecified osteoarthritis, unspecified site; F31.9 Bipolar disorder, unspecified; F41.9 Anxiety disorder, unspecified; G47.30 Sleep apnea, unspecified; Z87.442 Personal history of urinary calculi; E78.00 Pure hypercholesterolemia, unspecified; I10 Essential (primary) hypertension; E11.9 Type 2 diabetes mellitus without complications; Z79.899 Other long term (current) drug therapy; X58.XXXA Exposure to other specified factors, initial encounter
CPT/HCPCS: 96372; 99284; J2930

== ENCOUNTER 2024-10-31 19:36 | Emergency (ER) | payer OTHER, SELFPAY ==
[2024-10-31 19:49] VITALS: BP 146/77; PULSE 62; TEMP 36.8; O2SAT 97; BMI 43.0
--- NOTE | 2024-10-31 21:18 | ED.SKABFB1 ---
HPI - Skin/Abscess/Foreign Bdy General Chief complaint: Skin/Abscess/Foreign Body Stated complaint: Laceration Time Seen by Provider: 10/31/24 21:17 Source: patient Mode of arrival: walk-in History of Present Illness HPI narrative: 54 year old male presents to the ED for a laceration to his right lower leg. Reports cutting it on a metal ramp this evening. His tetanus status is unknown. Denies weakness, fever, N/T. Related Data Home Medications ?Medication ?Instructions ?Recorded ?Confirmed aripiprazole 20 mg tablet 20 mg PO QDAY 01/21/23 04/07/23 calcium 600 mg (as 1 tab PO DAILY 01/21/23 04/07/23 carbonate)-vitamin D3 5 mcg (200 unit) tablet (Calcium 600 + D(3)) cholecalciferol (vitamin D3) 1,250 50,000 unit PO .twice weekly 01/21/23 04/07/23 mcg (50,000 unit) capsule cholecalciferol (vitamin D3) 25 1,000 unit PO DAILY 01/21/23 01/21/23 mcg (1,000 unit) capsule clonazepam 0.5 mg tablet 0.5 mg PO Q12H 01/21/23 04/07/23 diphenoxylate-atropine 2.5 1 tab PO Q6H 01/21/23 04/07/23 mg-0.025 mg tablet (Lomotil) finasteride 5 mg tablet 5 mg PO QDAY 01/21/23 04/07/23 guselkumab 100 mg/mL subcutaneous 100 mg subcut 01/21/23 auto-injector (Tremfya) ibuprofen 800 mg tablet (IBU) 800 mg PO Q12H 01/21/23 04/07/23 imipramine HCl 25 mg tablet 25 mg PO BID 01/21/23 04/07/23 magnesium citrate 100 mg capsule 100 mg PO DAILY 01/21/23 04/07/23 metaxalone 800 mg tablet 800 mg PO TID 01/21/23 04/07/23 mirabegron 50 mg tablet,extended 50 mg PO Q24H 01/21/23 04/07/23 release 24 hr (Myrbetriq) potassium gluconate 595 mg (99 mg) 595 mg PO DAILY 01/21/23 04/07/23 tablet solifenacin 10 mg tablet 5 mg PO QDAY 01/21/23 04/07/23 tamsulosin 0.4 mg capsule 0.4 mg PO Q24H 01/21/23 04/07/23 eqrrym-kkkvgjba-acicfjh 1 cap PO TID 04/07/23 04/07/23 12,000-38,000-60,000 unit capsule,delayed rel (Creon) Previous Rx's ?Medication ?Instructions ?Recorded acetaminophen 300 mg-codeine 30 mg 1 tab PO Q6H PRN pain 5 days #20 10/04/23 tablet tabs ibuprofen 800 mg tablet 800 mg PO Q8H PRN pain #20 tabs 10/04/23 methocarbamol 750 mg tablet 750 mg PO TID PRN pain/spasm #12 10/05/23 tabs tramadol 50 mg tablet 50 mg PO Q4H PRN pain 3 days #15 10/05/23 tabs cephalexin 500 mg capsule 500 mg PO Q8H 7 days #21 caps 10/31/24 Allergies Allergy/AdvReac Type Severity Reaction Status Date / Time No Known Drug Allergies Allergy Verified 01/21/23 11:17 Review of Systems ROS Constitutional Denies: fever or chills Cardiovascular Denies: chest pain Respiratory Denies: shortness of breath Musculoskeletal Reports: extremity pain Integumentary/Breast Reports: new lesion Neurological Denies: numbness in extremities or weakness in extremities [facility] Medical History (Updated 10/31/24 @ 22:00 by Shelly Engle) Diarrhea ?R19.7 - Diarrhea, unspecified (ICD-10) Back pain ?M54.9 - Dorsalgia, unspecified (ICD-10) Arthritis ?M19.90 - Unspecified osteoarthritis, unspecified site (ICD-10) Depression ?F32.A - Depression, unspecified (ICD-10) Bipolar disorder ?F31.9 - Bipolar disorder, unspecified (ICD-10) Anxiety ?F41.9 - Anxiety disorder, unspecified (ICD-10) Sleep apnea ?G47.30 - Sleep apnea, unspecified (ICD-10) Kidney stones ?N20.0 - Calculus of kidney (ICD-10) Heart murmur ?R01.1 - Cardiac murmur, unspecified (ICD-10) High cholesterol ?E78.00 - Pure hypercholesterolemia, unspecified (ICD-10) Hypertension ?I10 - Essential (primary) hypertension (ICD-10) Diabetes ?E11.9 - Type 2 diabetes mellitus without complications (ICD-10) Deviated septum ?J34.2 - Deviated nasal septum (ICD-10) Nasal turbinate hypertrophy ?J34.3 - Hypertrophy of nasal turbinates (ICD-10) Chronic maxillary sinusitis ?J32.0 - Chronic maxillary sinusitis (ICD-10) Surgical History (Updated 01/21/23 @ 11:30 by Lupe Garcia NP) History of carpal tunnel release ?Z98.890 - Other specified postprocedural states (ICD-10) History of gastric bypass ?Z98.84 - Bariatric surgery status (ICD-10) History of appendectomy ?Z90.49 - Acquired absence of other specified parts of digestive tract (ICD-10) History of surgery on lower extremity ?Z98.890 - Other specified postprocedural states (ICD-10) History of arthroscopy of knee ?Z98.890 - Other specified postprocedural states (ICD-10) History of hernia repair ?Z98.890 - Other specified postprocedural states (ICD-10) ?Z87.19 - Personal history of other diseases of the digestive system (ICD-10) Family History (Updated 01/21/23 @ 11:30 by Lupe Garcia NP) Other Family history of diabetes mellitus Family history of heart disease Family history of hypertension Family history of myocardial infarction Family history of skin cancer Family history of stroke Social History Within the past year, how often did you have a drink containing alcohol: monthly or less Smoking status: Never smoker Non-prescribed substance use: denies use Previous occupational history: [employer] Highest level of school completed/degree received: high school graduate Little interest or pleasure in doing things: not at all Feeling down, depressed, or hopeless: not at all Exam Constitutional Vital Signs, click to edit/add: Last Vital Signs Temp 98.3 F 10/31/24 19:49 Pulse 62 10/31/24 19:49 Resp 18 10/31/24 19:49 BP 146/77 H 10/31/24 19:49 Pulse Ox 97 10/31/24 19:49 O2 Del Method Room Air 10/31/24 19:49 Common normals: no apparent distress and oriented x3 General appearance: cooperative Eye Common normals: conjunctivae normal Neck & C-Spine Common normals: supple Respiratory Common normals: normal respiratory effort Effort & inspection: able to speak in complete sentences and symmetric chest movement Cardio Common normals: regular rate Peripheral pulses: posterior tibial pulses present and dorsalis pedis pulses present Extremity Other: 2.5 cm laceration to right anterior lower leg. Minimal bleeding. Wound appears superficial. No visible or palpable FB. No surrounding bony tenderness. Neuro Common normals: oriented x3, moves all extremities and no focal motor deficits Speech: speech normal Gait (neuro): normal gait Course Vital Signs Vital signs: Vital Signs Temperature 98.3 F 10/31/24 19:49 Pulse Rate 62 10/31/24 19:49 Respiratory Rate 18 10/31/24 19:49 Blood Pressure 146/77 H 10/31/24 19:49 Pulse Oximetry 97 10/31/24 19:49 Oxygen Delivery Method Room Air 10/31/24 19:49 Temperature 98.3 F 10/31/24 19:49 Pulse Rate 62 10/31/24 19:49 Respiratory Rate 18 10/31/24 19:49 Blood Pressure 146/77 H 10/31/24 19:49 Pulse Oximetry 97 10/31/24 19:49 Oxygen Delivery Method Room Air 10/31/24 19:49 MDM - Skin/Abscess/Foreign Bdy MDM Narrative Medical decision making narrative: His wound was irrigated and sutures were placed. Suture removal in 10-14 days. The patient's tetanus status was updated and a dressing was applied. The patient is diabetic. A prescription was provided for Keflex. Follow up with pcp for a recheck, further evaluation and treatment. Discharge Plan Discharge Chief Complaint: Skin/Abscess/Foreign Body Clinical Impression: Laceration of leg Patient Disposition: Home, Self-Care Time of Disposition Decision: 21:59 Condition: Good Mode of Transportation: Private Vehicle Prescriptions / Home Meds: New cephalexin 500 mg capsule 500 mg PO Q8H 7 Days Qty: 21 0RF No Action aripiprazole 20 mg tablet 20 mg PO QDAY cholecalciferol (vitamin D3) 1,250 mcg (50,000 unit) capsule 50,000 unit PO .twice weekly clonazepam 0.5 mg tablet 0.5 mg PO Q12H diphenoxylate-atropine [Lomotil] 2.5-0.025 mg tablet 1 tab PO Q6H calcium carbonate-vitamin D3 [Calcium 600 + D(3)] 600 mg-5 mcg (200 unit) tablet 1 tab PO DAILY finasteride 5 mg tablet 5 mg PO QDAY ibuprofen [IBU] 800 mg tablet 800 mg PO Q12H imipramine HCl 25 mg tablet 25 mg PO BID magnesium citrate 100 mg capsule 100 mg PO DAILY metaxalone 800 mg tablet 800 mg PO TID Myrbetriq 50 mg tablet extended release 24 hr 50 mg PO Q24H potassium gluconate 595 mg (99 mg) tablet 595 mg PO DAILY cholecalciferol (vitamin D3) 25 mcg (1,000 unit) capsule 1,000 unit PO DAILY solifenacin 10 mg tablet 5 mg PO QDAY tamsulosin 0.4 mg capsule 0.4 mg PO Q24H Tremfya 100 mg/mL auto-injector 100 mg subcut Creon 12,000-38,000 -60,000 unit capsule,delayed release(DR/EC) 1 cap PO TID Rx Instructions: administer with meals and/or snacks acetaminophen-codeine 300-30 mg tablet 1 tab PO Q6H PRN (Reason: pain) 5 Days Qty: 20 0RF ibuprofen 800 mg tablet 800 mg PO Q8H PRN (Reason: pain) Qty: 20 0RF methocarbamol 750 mg tablet 750 mg PO TID PRN (Reason: pain/spasm) Qty: 12 0RF tramadol 50 mg tablet 50 mg PO Q4H PRN (Reason: pain) 3 Days Qty: 15 0RF Rx Instructions: DX: M54.5 Print Language: Belarusian Instructions: Laceration (ED) Additional Instructions: Keep the wound clean and dry. Gentle cleansing with soap and water is okay. Do not soak the wound. Watch for signs of infection: redness, purulent drainage, swelling, increased warmth. The stitches will need to be removed in 10-14 days. Referrals: BLAINE LOPEZ [Primary Care Provider] - 1 week Discharge Date/Time: 10/31/24 22:17 Procedures ED Laceration Laceration Laceration 1: Site: lower extremity Side (if applicable): right Size (cm): 2.5 Description: irregular Depth: simple, single layer Anesthetic used: lidocaine 1% Anesthesia technique: local infiltration Pre-repair: irrigated extensively Skin layer closed with: other (Nylon) Size (cm): 3-0, 4-0 and other Number of sutures: 7 Technique: simple, interrupted Additional comments: The patient tolerated the procedure well. The wound was extensively irrigated with sterile normal saline.
[2024-10-31] MEDS: ADACEL DIPH,PERTUSS(ACELL),TET VAC/PF 0.5 ML ADULT SYRINGE IM (22:10)
[2024-10-31] MEDS: LIDOCAINE HCL 1% 100 MG/10 ML MDV INJ (22:10)
== END 2024-10-31 22:17 | disposition home or self-care (01) ==
PROVIDERS: Emergency Provider Internal Medicine; PCP Internal Medicine
DX: S81.811A Laceration without foreign body, right lower leg, initial encounter (principal); W26.8XXA Contact with other sharp object(s), not elsewhere classified, initial encounter; Z98.84 Bariatric surgery status; Z90.49 Acquired absence of other specified parts of digestive tract; E11.9 Type 2 diabetes mellitus without complications; Z79.85 Long-term (current) use of injectable non-insulin antidiabetic drugs
CPT/HCPCS: 12001; 90471; 90715; 99283

== ENCOUNTER 2025-01-10 08:53 | Outpatient (OUT) | payer OTHER, SELFPAY ==
--- OUTSIDE RECORDS SUMMARY | 2018-01-26 09:00 | XMS_ITS | Continuity of Care Document ---
Author [facility] TeamVisibility [facility] Address [address] [place] [address] [place] [address] Phone Care Team Providers Care Tractor Trailer Operator Name Role Phone Janis Monteiro CNP Unavailable Unavailable Procedures Procedure Date OFFICE/OUTPATIENT VISIT, EST OFFICE/OUTPATIENT VISIT, EST POSTOP FOLLOW-UP VISIT POSTOP FOLLOW-UP VISIT LAP GASTRIC BYPASS/ROHIT-EN-Y OFFICE/OUTPATIENT VISIT, EST OFFICE/OUTPATIENT VISIT, EST OFFICE/OUTPATIENT VISIT, [facility] Advance Directives Directive Yes / No Effective Date File Name No Information Encounters Encounter Description Practice Location Reason(s) For Visit Diagnoses Date Provider Providers Copied on Encounter OFFICE/OUTPAT IENT VISIT, [facility] [employer] [facility], [address] [place] [address], [id number], [place] tel:[phone] [facility] No Information Cayetano Bruce. [address] [place] [address], [id number], [place]. tel:[phone] Referring Provider: Janis Monteiro, [address] [place] [address], [address] . tel:[phone] OFFICE/OUTPAT IENT VISIT, [facility] [employer] [facility], [address] [place] [address], [id number], tel:[phone] [facility] No Information Cayetano Bruce. [address] [place] [address], [id number], [place]. tel:[phone] Referring Provider: Janis Monteiro, [address], [place], [address] . tel:[phone] [employer] [facility], [address], [place], [id number], [place] tel:[phone] [facility] No Information No Information [employer] [facility], [address], [place], [id number], [place] tel:[phone] [facility] No Information No Information [employer] [facility], [address], [place], [place], [id number], [place] tel:[phone] [facility] No Information Chava Dupree. [address], [place], [place], [id number], [place]. tel:[phone] Referring Provider: Joon Boucher, [address], [place], [address] . tel:[phone] OFFICE/OUTPAT IENT VISIT, [employer] [facility], [address], [place], [place], [id number], [place] tel:[phone] [facility] No Information Chava Dupree. [address], [place], [place], [id number], [place]. tel:[phone] Referring Provider: Joon Boucher, [address], [place], [address] . tel:[phone] OFFICE/OUTPAT IENT VISIT, [employer] [facility], [address] [facility] [address] [facility] [address], [place], [place], [id number], [place] tel:[phone] [facility] No Information Chava Dupree. [address], [place], [place], [id number], [place]. tel:[phone] Referring Provider: Joon Boucher, [address] [facility] [address], [place], [address] . tel:[phone] OFFICE/OUTPAT IENT VISIT, [employer] [facility], [address], [place], [place], [id number], tel:[phone] [facility] No Information Chava Dupree. [address] [facility] [address], [place], [place], [id number], [place]. tel:[phone] Referring Provider: Joon Boucher, [address] [facility] [address], [place], [address] . tel:[phone] Family History Family Member Type Diagnosis Age At Onset No Information Payers Payer name Insurance type Covered constitution party ID [facility] [id number] Social History Type Description Quantity Date Captured Comments Sex Male Smoking Status No Information Chief Complaint And Reason For Visit No Information Reason For Referral Reason For Referral No Information History Of Present Illness Encounter Date Complaint History Of Prese nt Illness No Information Functional Status Date Functional Assessmen t No Information Instructions Date Instruction Additional Infor mation No Information Assessments Type Assessment Date No Information Patient Care Teams Name Effective Dates (start - stop) Status Members No Information
--- OUTSIDE RECORDS SUMMARY | 2025-01-09 11:30 | XMS_ITS | Encounter Summary ---
Author Organization [facility] Address [address] [place] [address] Care Team Providers Care Ophthalmic Medical Technician Name Role Phone Hever Caal MD Primary Care Provider [phone] Reason for Referral * Medications - Authorized Specialty Diagnoses / Procedures Referred By Josef t Referred To Contact Diagnoses Psoriasis vulgaris High risk medication use Mary Brunson MD [address] [facility] [address] [place] [address] Phone: tel: fax: Referral ID Status Reason Start Date Expiration Date V isits Requested Visits Authorized [id number] Authorized 01/09/2025 05/09/2025 1 1 Reason for Visit * Reason Comments Follow-up Encounter Details Date Type Department Care Team ([facility] Contact Info) Description 01/09/2025 11:30 AM EDT Office Visit [facility] [address] [facility] [address] [place] [phone] Mary Brunson MD [address] [facility] [address] [place] [address] Psoriasis vulgaris (Primary Dx); High risk medication use Social History Tobacco Use Types Packs/Day Years Used Date Smoking Tobacco: Never Smokeless Tobacco: Never Alcohol Use Standard Drinks/Week Comments Not Currently 0 (1 standard drink = 0.6 oz pur e alcohol) Sex and Gender Information Value Date Recorded Sex Assigned at Not on file Legal Sex Male 7:22 PM EDT Gender Identity Not on file Sexual Orientation Not on file documented as of this encounter Last Filed Vital Signs Vital Sign Reading Time Taken Comments Blood Pressure - - Pulse - - Temperature - - Respiratory Rate - - Oxygen Saturation - - Inhaled Oxygen Concentration - - Weight 136 kg (300 lb) 01/09/2025 11:33 AM EDT Height - - Body Mass Index 43.05 03/13/2024 11:16 AM EDT documented in this encounter Plan of Treatment Upcoming Encounters Date Type Department Care Team (Late st Contact Info) Description 01/16/2025 10:50 AM EDT Office Visit [facility] [address] [facility] [address] [place] [address] Prerna Salazar MD [address] [facility] [address] [place] [address] 05/14/2025 11:25 AM EST Office Visit [facility] [address] [facility] [address] [place] [address] Mary Brunson MD [address] [facility] [address] [place] [address] Scheduled Orders Name Type Priority Associated Diagnoses Orde r Schedule QuantiFERON TB GOLD PLUS Lab Routine Psoriasis vulgaris High risk medication use Expected: 01/09/2025 (Approximate), Expires: 01/09/2026 documented as of this encounter Visit Diagnoses Diagnosis Psoriasis vulgaris- Primary Other psoriasis High risk medication use documented in this encounter Care Teams Ophthalmic Medical Technician Relationship Specialty Start Date End Date Hever Caal MD [address] [place] [address] PCP - General Internal Medicine 01/08/25 documented as of this encounter
--- OUTSIDE RECORDS SUMMARY | 2025-01-10 08:56 | XMS_ITS | Encounter Summary ---
Author Organization [employer] Address [facility]-[id number] [address] [place] [address] Care Team Providers Care Car Sealer Name Role Phone Hever Caal Primary Care Provider [phone] Encounter Details Date Type Department Care Team (Late st Contact Info) Description 08/16/2022 Telephone [facility] [address] [place] [address] Darcy Clark LPN Social History Tobacco Use Types Packs/Day Years Used Date Smoking Tobacco: Never Smokeless Tobacco: Never Alcohol Use Standard Drinks/Week Comments Yes 0 (1 standard drink = 0.6 oz pur e alcohol) socially Childcare Answer Date Recorded Childcare Unknown 04/04/2020 Employment Answer Date Recorded Employment Unknown 04/04/2020 Purpose - Life Answer Date Recorded Purpose and direction in life Unknown Sex and Gender Information Value Date Recorded Sex Assigned at Not on file Legal Sex Male 11:21 AM EDT Gender Identity Not on file Sexual Orientation Not on file documented as of this encounter Miscellaneous Notes * Telephone Encounter - Darcy Paniagua LPN - 08/16/2022 1:51 PM EST Patient reports that desmopressin is not working as well as it used to please advise * Telephone Encounter - MISHLE Torres - 08/16/2022 1:51 PM EST Danisha's last note indicated she was willing to try anticholinergic vs beta agonist (another typeof med) if still issues. He is already on tamsulosin/finasteride and the desmopressin to that wouldmake 4 meds for Uro--IF he wants to try it Danisha can decide if she wants to d/c the desmo and replace with one of the other meds or stay on the desmo and add another med--either way he will need af/u in [place] office with PVR 4-6 weeks post new med initiation. * Telephone Encounter - Darcy Paniagua LPN - 08/16/2022 1:51 PM EST He would like to try another medication * Telephone Encounter - MISHEL Hernandez - 08/16/2022 1:51 PM EST I called him. He is taking DDAVP 0.6 mg. His main issue is at night. Options reviewed. He is interested in trying Myrbetriq. I told him to monitor his blood pressure and discontinue if elevated. Hellen: He is going to be coming by today to pick up operator some samples. Would you please give him 4 weeksworth Myrbetriq 50 mg Bin: While he is here, would you please schedule him for a follow-up with me or Dr. Lucero in 4weeks to check a PVR. * Telephone Encounter - Hellen Yeung LPN - 08/16/2022 1:51 PM EST Samples are at the front end alignment specialist for patient. Thanks. * Telephone Encounter - Bin York CMA - 08/16/2022 1:51 PM EST PT came in for Myrbetriq. Scheduled him for 09/01, he was very adamant that 09/15 would not work for him. documented in this encounter Plan of Treatment Upcoming Encounters Date Type Department Care Team (Late st Contact Info) Description 04/05/2025 10:15 AM EDT Office Visit [facility] [address] [place] [address] Hever Caal DO [address] [place] [address] 06/11/2025 1:15 PM EST Office Visit [facility] [address] [place] [address] [place] [address] Alfonzo Lucero MD [address] [place] [address] documented as of this encounter Visit Diagnoses Not on filedocumented in this encounter Care Teams Car Sealer Relationship Specialty Start Date End Date Hever Caal DO [address] [place] [address] PCP - General Internal Medicine 02/01/23 documented as of this encounter
--- OUTSIDE RECORDS SUMMARY | 2025-01-10 08:56 | XMS_ITS | Encounter Summary ---
Author Organization [facility] [employer] Address [id number] [address] [place] [address] Care Team Providers Care Coding Consultant Name Role Phone Hever Caal DO Primary Care Provider [phone] Reason for Visit * Reason Comments Med Refill Encounter Details Date Type Department Care Team ([facility] Contact Info) Description 11/23/2020 Refill [facility] [address] [place] [address] [place] [address] Danisha Zaragoza I, PA [address] [place] [address] Social History Tobacco Use Types Packs/Day Years [...] on file Sexual Orientation Not on file COVID-19 Exposure Response Date Recorded In the last month, have you been in contact with someone who was confirmed or suspected to have Coronavirus / COVID-19? No / Unsure 11/06/2020 7:02 AM EDT documented as of this encounter Plan of Treatment Upcoming Encounters Date Type Department Care Team ([facility] Contact Info) Description 04/05/2025 10:15 AM EDT Office Visit [facility] [address] [place] [address] Hever Caal DO [address] [place] [address] 06/11/2025 1:15 PM EST Office Visit [facility] [address] [place] [address] [address] [facility] [place] [phone] Alfonzo Lucero MD [facility] [place] [address] documented as of this encounter Visit Diagnoses Not on filedocumented in this encounter Care Teams Coding Consultant Relationship Specialty Start Date End Date Hever Caal DO [address] [place] [address] PCP - General Internal Medicine 02/01/23 documented as of this encounter
--- OUTSIDE RECORDS SUMMARY | 2025-01-10 08:56 | XMS_ITS | Encounter Summary ---
Author Organization [facility] [employer] Address [id number] [address] [place] [address] Care Team Providers Care Stereo Map Plotter Operator Name Role Phone Hever Caal DO Primary Care Provider [phone] Encounter Details Date Type Department Care Team (Late Contact Info) Description 11/20/2020 Abstract [facility] [address] [place] [phone] External, Scanning Provider Social History Tobacco Use Types Packs/Day Years [...] Encounters Date Type Department Care Team (Late Contact Info) Description 04/05/2025 10:15 AM EDT Office Visit [facility] [address] [place] [address] Hever Caal DO [address] [place] [address] 06/11/2025 1:15 PM EST Office Visit [facility] [address] [place] [address] [place] [place] [address] Alfonzo Lucero MD [address] [place] [address] documented as of this encounter Procedures Procedure Name Priority Date/Time Associated Diagnosis Comments CT ABDOMEN AND PELVIS WO CONT Routine 11/03/2020 documented in this encounter Results * CT abdomen and pelvis without contrast (11/03/2020) Anatomical Region Laterality Modality Body, Abdomen, Body Covera N/A Compu yusra Tomography us Scanning Provider External IMG CT ORDERABLES Fin al Result documented in this encounter Visit Diagnoses Not on filedocumented in this encounter Care Teams Stereo Map Plotter Operator Relationship Specialty Start Date End Date Hever Caal DO [address] [place] [address] PCP - General Internal Medicine 02/01/23 documented as of this encounter
--- OUTSIDE RECORDS SUMMARY | 2025-01-10 08:57 | XMS_ITS | Encounter Summary ---
Author [facility] Address [id number] [address] [place] [address] Care Team Providers Care Sales Order Processor Name Role Phone Hever Caal DO Primary Care Provider [phone] Encounter Details Date Type Department Care Team (Late st Contact Info) Description 03/26/2024 Orders Only [facility] [address] [place] [phone] Hever Caal DO [address] [place] [address] Type 2 diabetes mellitus with hyperglycemia, with long-term current use of insulin ([facility]) Social History Tobacco Use Types Packs/Day Years Used Date Smoking Tobacco: Never Smokeless Tobacco: Never Alcohol Use Standard Drinks/Week Comments Yes 0 (1 standard drink = 0.6 oz pur e alcohol) socially PHQ-2 Answer Date Recorded Total Score 0 03/16/2024 Childcare Answer Date Recorded Childcare Unknown 04/04/2020 Employment Answer Date Recorded Employment Unknown 04/04/2020 Hunger Screening Answer Date Recorded Within the past 12 months we worried whether our food would run out before we got money to buy more. Never True 03/16/2024 Within the past 12 months th e food we bought just didn't last and we didn't have money to get more. Never True 03/16/2024 Purpose - Life Answer Date Recorded Purpose and direction in life Unknown Sex and Gender Information Value Date Recorded Sex Assigned at Not on file Legal Sex Male 11:21 AM EDT Gender Identity Not on file Sexual Orientation Not on file documented as of this encounter Plan of Treatment Upcoming Encounters Date Type Department Care Team (Late st Contact Info) Description 04/05/2025 10:15 AM EDT Office Visit [facility] [address] [place] [address] Hever Caal DO [address] [place] [address] 06/11/2025 1:15 PM EST Office Visit [facility] [address] [place] [address] [address] [facility] [place] [phone] Alfonzo Lucero MD [address] [place] [address] documented as of this encounter Visit Diagnoses Diagnosis Type 2 diabetes mellitus with hyperglycemia, with long-term current use of insulin ([facility]) documented in this encounter Additional Health Concerns Assessment Noted Time PHQ-9 Depression Total Score: 0 03/16/20 24 11:36 AM EDT A Body Mass Index follow-up plan has been documented for the patient 01/26/2024 3:52 PM EDT documented as of this encounter Care Teams Sales Order Processor Relationship Specialty Start Date End Date Hever Caal DO [address] [place] [address] PCP - General Internal Medicine 02/01/23 documented as of this encounter
--- OUTSIDE RECORDS SUMMARY | 2025-01-10 08:57 | XMS_ITS | Encounter Summary ---
Author Organization [facility] Address [id number] [address] [place] [address] Care Team Providers Care Mink Farmer Name Role Phone Hever Caal DO Primary Care Provider [phone] Reason for Visit * Reason Onset Date Comments Med Refill 09/27/2022 Encounter Details Date Type Department Care Team (Late st Contact Info) Description 09/27/2022 Refill [facility] [address] [place] [address] Celia Lundberg RN Enuresis (Primary Dx) Social History Tobacco Use Types Packs/Day Years [...] have Coronavirus / COVID-19? No / Unsure 09/01/2022 1:40 PM EST documented as of this encounter Miscellaneous Notes * Telephone Encounter - Celai Lundberg LPN - 09/27/2022 10:25 AM EDT Pt called in asking for Rx to be sent for Myrbetriq. He had been given samples in the past and states they work well for him and he would like to continue taking. * Telephone Encounter - MISHEL Torres - 09/27/2022 10:25 AM EDT Per Epic--Dr Lucero signed off on this Rx last week (has 30 days but refills on it??) documented in this encounter Plan of Treatment Upcoming Encounters Date Type Department Care Team (Late st Contact Info) Description 04/05/2025 10:15 AM EDT Office Visit [facility] - Family Medicine [address] [place] [address] Hever Caal DO [address] [place] [address] 06/11/2025 1:15 PM EST Office Visit [facility] [address] [place] [address] [place] [address] Alfonzo Lucero MD [address] [place] [address] documented as of this encounter Visit Diagnoses Diagnosis Enuresis- Primary documented in this encounter Care Teams Mink Farmer Relationship Specialty Start Date End Date Hever Caal DO [address] [place] [address] PCP - General Internal Medicine 02/01/23 documented as of this encounter
--- OUTSIDE RECORDS SUMMARY | 2025-01-10 08:57 | XMS_ITS | Encounter Summary ---
Author Organization [facility] [facility] Address [facility] [id number] [address] [place] [address] Care Team Providers Care Estimator Name Role Phone Hever Caal DO Primary Care Provider [phone] Encounter Details Date Type Department Care Team ([facility] Contact Info) Description 04/11/2023 Orders Only [facility] Internal Medicine - Family Medicine [address] [place] [phone] Hever Caal DO [address] [place] [address] Exocrine pancreatic insufficiency (Primary Dx) Social History Tobacco Use Types Packs/Day Years Used Date Smoking Tobacco: Never Smokeless Tobacco: Never Alcohol Use Standard Drinks/Week Comments Yes 0 (1 standard drink = 0.6 oz pur e alcohol) socially PHQ-2 Answer Date Recorded Total Score 0 04/06/2023 Childcare Answer Date Recorded Childcare Unknown 04/04/2020 [...] Upcoming Encounters Date Type Department Care Team ([facility] Contact Info) Description 04/05/2025 10:15 AM EDT Office Visit [facility] - [facility] [address] [place] [address] Hever Caal DO [address] [place] [address] 06/11/2025 1:15 PM EST Office Visit [facility] [address] [place] [address] [address] [facility] [place] [address] Alfonzo Lucero MD [address] [place] [address] documented as of this encounter Visit Diagnoses Diagnosis Exocrine pancreatic insufficiency- Primary Other specified disease of pancreas documented in this encounter Additional Health Concerns Assessment Noted Time PHQ-9 Depression Total Score: 0 04/06/20 23 1:29 PM EDT documented as of this encounter Care Teams Estimator Relationship Specialty Start Date End Date Hever Caal DO [address] [place] [address] PCP - General Internal Medicine 02/01/23 documented as of this encounter
--- OUTSIDE RECORDS SUMMARY | 2025-01-10 08:57 | XMS_ITS | Encounter Summary ---
Author Organization [employer] Address [facility] [id number] [address] [place] [address] Care Team Providers Care Radio Director Name Role Phone Hever Caal DO Primary Care Provider [phone] Encounter Details Date Type Department Care Team ([facility] Contact Info) Description 12/31/2024 Orders Only [facility] - Family Medicine [address] [place] [address] Ref Prov, [place] [address] Social History Tobacco Use Types Packs/Day Years Used Date Smoking Tobacco: Never Smokeless Tobacco: Never Alcohol Use Standard Drinks/Week Comments Yes 0 (1 standard drink = 0.6 oz pur e alcohol) socially PHQ-2 Answer Date Recorded Total Score 0 12/21/2024 Childcare Answer Date Recorded Childcare Unknown 04/04/2020 Employment Answer Date Recorded Employment Unknown 04/04/2020 Hunger Screening Answer Date Recorded Within the past 12 months we worried whether our food would run out before we got money to buy more. Never True 12/21/2024 Within the past 12 months th e food we bought just didn't last and we didn't have money to get more. Never True 12/21/2024 Purpose - Life Answer Date Recorded Purpose and direction in life Unknown Sex and Gender Information Value Date Recorded Sex Assigned at Not on file Legal Sex Male 11:21 AM EDT Gender Identity Not on file Sexual Orientation Not on file documented as of this encounter Plan of Treatment Upcoming Encounters Date Type Department Care Team ([facility] Contact Info) Description 04/05/2025 10:15 AM EDT Office Visit [facility] Internal Medicine - Family Medicine [address] [place] [address] Hever Caal DO [address] [place] [address] 06/11/2025 1:15 PM EST Office Visit [facility] [address] [place] [address] [place] [address] Alfonzo Lucero MD [address] [place] [address] documented as of this encounter Procedures Procedure Name Priority Date/Time Associated Diagnosis Comments EXTERNAL DIRECTOR OF ACCOUNTS PAYABLE, CGM SYS Routine 12/21/2024 11:16 AM EDT documented in this encounter Results * EXTERNAL DIRECTOR OF ACCOUNTS PAYABLE, CGM SYS (12/21/2024 11:16 AM EDT) us Not In System Ref Prov [place] [employer] [employer] Final Result MANUALLY TRANSCRIBED RESULTS documented in this encounter Visit Diagnoses Not on filedocumented in this encounter Additional Health Concerns Assessment Noted Time PHQ-9 Depression Total Score: 0 12/22/19 11:02 AM EDT A Body Mass Index follow-up plan has been documented for the patient 01/26/2024 3:52 PM EDT documented as of this encounter Care Teams Radio Director Relationship Specialty Start Date End Date Hever Caal DO [address] [place] [address] PCP - General Internal Medicine 02/01/23 documented as of this encounter
--- OUTSIDE RECORDS SUMMARY | 2025-01-10 08:57 | XMS_ITS | Encounter Summary ---
Author Organization [facility] Address [facility] [id number] [address] [place] [address] Care Team Providers Care Pantograph Machine Set Up Operator Name Role Phone Hever Caal DO Primary Care Provider Encounter Details Date Type Department Care Team (Late st Contact Info) Description 06/15/2023 Orders Only [facility] Internal Medicine - Family Medicine [address] [place] [phone] Hever Caal DO [address] [place] [address] Spinal stenosis of lumbar region without neurogenic claudication; Exocrine pancreatic insufficiency; Type 2 diabetes mellitus without complication, without long-term current use of insulin ([facility]); B12 deficiency Social History Tobacco Use Types Packs/Day Years Used Date Smoking Tobacco: Never Smokeless Tobacco: Never Alcohol Use Standard Drinks/Week Comments Yes 0 (1 standard drink = 0.6 oz pur e alcohol) socially PHQ-2 Answer Date Recorded Total Score 0 05/26/2023 Childcare Answer Date Recorded Childcare Unknown 04/04/2020 Employment Answer Date Recorded Employment Unknown 04/04/2020 Hunger Screening Answer Date Recorded Within the past 12 months we worried whether our food would run out before we got money to buy more. Never True 05/26/2023 Within the past 12 months th e food we bought just didn't last and we didn't have money to get more. Never True 05/26/2023 Purpose - Life Answer Date Recorded Purpose [...] Internal Medicine - Family Medicine [address] [place] [address] Hever Caal DO [address] [place] [address] 06/11/2025 1:15 PM EST Office Visit [facility] [address] [place] [address] A [facility] [place] [address] Alfonzo Lucero MD [address] [place] [address] documented as of this encounter Visit Diagnoses Diagnosis Spinal stenosis of lumbar region without neurogenic claudication Exocrine pancreatic insufficiency Other specified disease of pancreas Type 2 diabetes mellitus without complication, without long-term current use of insulin ([facility] B12 deficiency documented in this encounter Additional Health Concerns Assessment Noted Time PHQ-9 Depression Total Score: 0 05/26/20 11:51 AM EST documented as of this encounter Care Teams Pantograph Machine Set Up Operator Relationship Specialty Start Date End Date Hever Caal DO [address] [place] [address] PCP - General Internal Medicine 02/01/23 documented as of this encounter
--- OUTSIDE RECORDS SUMMARY | 2025-01-10 08:57 | XMS_ITS | Encounter Summary ---
Author Organization [facility] Address [id number] [address] [place] [address] Care Team Providers Care Experimental Plastics Fabricator Name Role Phone Hever Caal DO Primary Care Provider [phone] Reason for Visit * Reason Onset Date Comments Med Refill 06/06/2023 Encounter Details Date Type Department Care Team ([facility] st Contact Info) Description 06/06/2023 Telephone [facility] Internal Medicine - Family Medicine [address] [place] [phone] Kayleigh Alejandro MA Med Refill Social History Tobacco Use Types Packs/Day Years [...] encounter Miscellaneous Notes * Telephone Encounter - Kayleigh Alejandro MA - 06/06/2023 3:14 PM EST Pt said he got pen called in, but no pen needles, need it sent to [facility] please documented in this encounter Plan of Treatment Upcoming Encounters Date Type Department Care Team (Late st Contact Info) Description 04/05/2025 10:15 AM EDT Office Visit [facility] Medicine - Family Medicine [address] [facility] [place] [address] Hever Caal DO [address] [place] [address] 06/11/2025 1:15 PM EST Office Visit [facility] [address] [place] [address] [place] [address] Alfonzo Lucero MD [address] [place] [address] documented as of this encounter Visit Diagnoses Not on filedocumented in this encounter Additional Health Concerns Assessment Noted Time PHQ-9 Depression Total Score: 0 05/26/20 23 11:51 AM EST documented as of this encounter Care Teams Experimental Plastics Fabricator Relationship Specialty Start Date End Date Hever Caal DO [address] [place] [address] PCP - General Internal Medicine 02/01/23 documented as of this encounter
--- OUTSIDE RECORDS SUMMARY | 2025-01-10 08:57 | XMS_ITS | Encounter Summary ---
Author Organization [facility] Address [id number] [address] [place] [address] Care Team Providers Care Astronomy Professor Name Role Phone Hever Caal DO Primary Care Provider [phone] Encounter Details Date Type Department Care Team ([facility] Contact Info) Description 12/23/2024 Orders Only [facility] Internal Medicine - Family Medicine [address] [place] [address] Hever Caal DO [address] [place] [address] Social History Tobacco Use Types Packs/Day Years [...] Upcoming Encounters Date Type Department Care Team ([facility] Contact Info) Description 04/05/2025 10:15 AM EDT Office Visit [facility] - Family Medicine [address] [place] [address] Hever Caal DO [address] [place] [address] 06/11/2025 1:15 PM EST Office Visit [facility] [address] [place] [phone] Alfonzo Lucero MD [facility] [place] [facility] [place] [address] documented as of this encounter Visit Diagnoses Not on filedocumented in this encounter Additional Health Concerns Assessment Noted Time PHQ-9 Depression Total Score: 0 12/22/19 25 11:02 AM EDT A Body Mass Index follow-up plan has been documented for the patient 01/26/2024 3:52 PM EDT documented as of this encounter Care Teams Astronomy Professor Relationship Specialty Start Date End Date Hever Caal DO [address] [place] [address] PCP - General Internal Medicine 02/01/23 documented as of this encounter
--- OUTSIDE RECORDS SUMMARY | 2025-01-10 08:57 | XMS_ITS | Encounter Summary ---
Author Organization [email or web address] Address [facility] [place]-[id number] [address] [place] [address] Care Team Providers Care Central Office Installer Name Role Phone Hever Caal DO Primary Care Provider [phone] Encounter Details Date Type Department Care Team ([facility] Contact Info) Description 12/24/2024 Telephone [facility] Internal Medicine - Family Medicine [address] [place] [address] Alverto White CMA Social History Tobacco Use Types Packs/Day Years [...] Upcoming Encounters Date Type Department Care Team ([facility] Contact Info) Description 04/05/2025 10:15 AM EDT Office Visit [facility] Medicine - Family Medicine [address] [place] [address] Hever Caal DO [address] [place] [address] 06/11/2025 1:15 PM EST Office Visit [facility] [address] [place] [address] [place] [address] Alfonzo Lucero MD [address] [place] [address] documented as of this encounter Visit Diagnoses Not on filedocumented in this encounter Additional Health Concerns Assessment Noted Time PHQ-9 Depression Total Score: 0 12/22/19 25 11:02 AM EDT A Body Mass Index follow-up plan has been documented for the patient 01/26/2024 3:52 PM EDT documented as of this encounter Care Teams Central Office Installer Relationship Specialty Start Date End Date Hever Caal DO [address] [place] [address] PCP - General Internal Medicine 02/01/23 documented as of this encounter
--- OUTSIDE RECORDS SUMMARY | 2025-01-10 08:57 | XMS_ITS | Encounter Summary ---
Author [facility] Address [facility] [id number] [address] [place] [address] Care Team Providers Care Level Vial Setter Name Role Phone Hever Caal DO Primary Care Provider [phone] Encounter Details Date Type Department Care Team (Late st Contact Info) Description 07/05/2023 Orders Only [facility] Internal Medicine - Family Medicine [address] [place] [address] Hever Caal DO [address] [place] [address] Type 2 diabetes mellitus without complication, without long-term current use of insulin ([facility]) Social History Tobacco Use Types Packs/Day Years Used Date Smoking Tobacco: Never Smokeless Tobacco: Never Alcohol Use Standard Drinks/Week Comments Yes 0 (1 standard drink = 0.6 oz pur e alcohol) socially PHQ-2 Answer Date Recorded Total Score 0 06/24/2023 Childcare Answer Date Recorded Childcare Unknown 04/04/2020 Employment Answer Date Recorded Employment Unknown 04/04/2020 Hunger Screening Answer Date Recorded Within the past 12 months we worried whether our food would run out before we got money to buy more. Never True 06/24/2023 Within the past 12 months th e food we bought just didn't last and we didn't have money to get more. Never True 06/24/2023 Purpose - Life Answer Date Recorded Purpose [...] Internal Medicine - Family Medicine [address] [place] [address] Hever Caal DO [address] [place] [address] 06/11/2025 1:15 PM EST Office Visit [facility] [address] [place] [address] [place] [address] Alfonzo Lucero MD [address] [place] [address] documented as of this encounter Visit Diagnoses Diagnosis Type 2 diabetes mellitus without complication, without long-term current use of insulin ([facility]) documented in this encounter Additional Health Concerns Assessment Noted Time PHQ-9 Depression Total Score: 0 06/24/20 11:39 AM EST documented as of this encounter Care Teams Level Vial Setter Relationship Specialty Start Date End Date Hever Caal DO [address] [place] [address] PCP - General Internal Medicine 02/01/23 documented as of this encounter
--- OUTSIDE RECORDS SUMMARY | 2025-01-10 08:57 | XMS_ITS | Encounter Summary ---
Author Organization [employer] Address [id number] [address] [place] [address] Care Team Providers Care Wind Field Manager Name Role Phone Hever Caal Primary Care Provider [phone] Encounter Details Date Type Department Care Team (Late st Contact Info) Description 01/04/2025 Telephone [facility] Internal Medicine - Family Medicine [address] [place] [address] Alverto White CMA Social History Tobacco Use [...] encounter Miscellaneous Notes * Telephone Encounter - Alverto White CMA - 01/04/2025 8:56 AM EDT Pt called and states he has been seeing more and more negative information about the OZEMPIC. He would like to stay on the Mounjaro. * Telephone Encounter - Hever Caal DO - 01/04/2025 8:56 AM EDT Message noted. I spoke with the patient by telephone today. I reviewed his concerned with the Ozempic verses the Mounjaro. I advised him that the medications are very similar and would have the same type of side effects. The patient has already been on Liraglutide in the form of Soliqua. He will continue with the Ozempic 0.5 mg weekly as prescribed, and if he tolerates well, can bump up to Mounjaro documented in this encounter Plan of Treatment Upcoming Encounters Date Type Department Care Team (Late st Contact Info) Description 04/05/2025 10:15 AM EDT Office Visit [facility] Internal Medicine - Family Medicine [address] [place] [address] Hever Caal DO [address] [place] [address] 06/11/2025 1:15 PM EST Office Visit [facility] [address] [place] [address] [place] [address] Alfonzo Lucero MD [address] [place] [address] documented as of this encounter Visit Diagnoses Not on filedocumented in this encounter Additional Health Concerns Assessment Noted Time PHQ-9 Depression Total Score: 0 12/22/19 25 11:02 AM EDT A Body Mass Index follow-up plan has been documented for the patient 01/26/2024 3:52 PM EDT documented as of this encounter Care Teams Wind Field Manager Relationship Specialty Start Date End Date Hever Caal DO [address] [place] [address] PCP - General Internal Medicine 02/01/23 documented as of this encounter
--- OUTSIDE RECORDS SUMMARY | 2025-01-10 08:57 | XMS_ITS | Encounter Summary ---
Author Organization [facility] Address [facility] [id number] [address] [place] [address] Care Team Providers Care Tool Mechanic Name Role Phone Hever Caal DO Primary Care Provider [phone] Encounter Details Date Type Department Care Team (Late st Contact Info) Description 08/02/2023 Orders Only [facility] Internal Medicine - Family Medicine [address] [place] [phone] Hever Caal DO [address] [place] [address] Type 2 diabetes mellitus without complication, without long-term current use of insulin ([facility]) Social History Tobacco Use Types Packs/Day Years Used Date Smoking Tobacco: Never Smokeless Tobacco: Never Alcohol Use Standard Drinks/Week Comments Yes 0 (1 standard drink = 0.6 oz pur e alcohol) socially PHQ-2 Answer Date Recorded Total Score 0 08/02/2023 Childcare Answer Date Recorded Childcare Unknown 04/04/2020 Employment Answer Date Recorded Employment Unknown 04/04/2020 Hunger Screening Answer Date Recorded Within the past 12 months we worried whether our food would run out before we got money to buy more. Never True 08/02/2023 Within the past 12 months th e food we bought just didn't last and we didn't have money to get more. Never True 08/02/2023 Purpose - Life Answer Date Recorded Purpose [...] Internal Medicine - Family Medicine [address] [place] [address] Hever Caal DO [address] [place] [address] 06/11/2025 1:15 PM EST Office Visit [facility] [address] [place] [address] [place] [phone] Alfonzo Lucero MD [address] [place] [address] documented as of this encounter Visit Diagnoses Diagnosis Type 2 diabetes mellitus without complication, without long-term current use of insulin ([facility]) documented in this encounter Additional Health Concerns Assessment Noted Time PHQ-9 Depression Total Score: 0 08/02/19 24 10:56 AM EST documented as of this encounter Care Teams Tool Mechanic Relationship Specialty Start Date End Date Hever Caal DO [address] [place] [address] PCP - General Internal Medicine 02/01/23 documented as of this encounter
--- OUTSIDE RECORDS SUMMARY | 2025-01-10 08:57 | XMS_ITS | Encounter Summary ---
Author Organization [employer] tem Address [facility] [place][id number] [address] [place] [address] Care Team Providers Care Forest Worker Name Role Phone Hever Caal DO Primary Care Provider [phone] Encounter Details Date Type Department Care Team ([facility] Contact Info) Description 11/13/2024 [facility] [address] [place] [address] Ref Prov, [place] [address] Social History Tobacco Use Types Packs/Day Years Used Date Smoking Tobacco: Never Smokeless Tobacco: Never Alcohol Use Standard Drinks/Week Comments Yes 0 (1 standard drink = 0.6 oz pur e alcohol) socially PHQ-2 Answer Date Recorded Total Score 0 11/12/2024 Childcare Answer Date Recorded Childcare Unknown 04/04/2020 Employment Answer Date Recorded Employment Unknown 04/04/2020 Hunger Screening Answer Date Recorded Within the past 12 months we worried whether our food would run out before we got money to buy more. Never True 11/12/2024 Within the past 12 months th e food we bought just didn't last and we didn't have money to get more. Never True 11/12/2024 Purpose - Life Answer Date Recorded Purpose and direction in life Unknown Sex and Gender Information Value Date Recorded Sex Assigned at Not on file Legal Sex Male 11:21 AM EDT Gender Identity Not on file Sexual Orientation Not on file documented as of this encounter Plan of Treatment Upcoming Encounters Date Type Department Care Team ([facility] Contact Info) Description 04/05/2025 10:15 AM EDT [facility] [address] [place] [address] Hever Caal DO [address] [place] [address] 06/11/2025 1:15 PM EST Office Visit [facility] [address] [place] [address] [place] [address] Alfonzo Lucero MD [address] [place] [address] documented as of this encounter Procedures Procedure Name Priority Date/Time Associated Diagnosis Comments EXTERNAL COMFORT ADVISOR, CGM SYS Routine 11/12/2024 6:47 AM EDT documented in this encounter Results * EXTERNAL COMFORT ADVISOR, CGM SYS (11/12/2024 6:47 AM EDT) us Not In System Ref Prov NM MISCELLANEOUS SERVICES Final Result MANUALLY TRANSCRIBED RESULTS documented in this encounter Visit Diagnoses Not on filedocumented in this encounter Additional Health Concerns Assessment Noted Time PHQ-9 Depression Total Score: 0 11/13/19 4:15 PM EDT A Body Mass Index follow-up plan has been documented for the patient 01/26/2024 3:52 PM EDT documented as of this encounter Care Teams Forest Worker Relationship Specialty Start Date End Date Hever Caal DO [address] [place] [address] PCP - General Internal Medicine 02/01/23 documented as of this encounter
--- OUTSIDE RECORDS SUMMARY | 2025-01-10 08:57 | XMS_ITS | Encounter Summary ---
Author Organization [employer] [facility] tem Address [facility] [id number] [address] [place] [address] Care Team Providers Care Stunner And Shackler Name Role Phone Hever Caal DO Primary Care Provider [phone] Encounter Details Date Type Department Care Team ([facility] Contact Info) Description 04/18/2023 Orders Only [facility] Internal Medicine - Family Medicine [address] [place] [address] Hever Caal DO [address] [place] [address] Social History Tobacco Use Types Packs/Day Years [...] Upcoming Encounters Date Type Department Care Team ([facility] Contact Info) Description 04/05/2025 10:15 AM EDT [facility] [address] [place] [address] Hever Caal DO [address] [place] [address] 06/11/2025 1:15 PM EST Office Visit [facility] [address] [place] [address] A [facility] [place] [address] Alfonzo Lucero MD [address] [place] [address] documented as of this encounter Visit Diagnoses Not on filedocumented in this encounter Additional Health Concerns Assessment Noted Time PHQ-9 Depression Total Score: 0 04/06/20 1:29 PM EDT documented as of this encounter Care Teams Stunner And Shackler Relationship Specialty Start Date End Date Hever Caal DO [address] [place] [address] PCP - General Internal Medicine 02/01/23 documented as of this encounter
--- OUTSIDE RECORDS SUMMARY | 2025-01-10 08:57 | XMS_ITS | Encounter Summary ---
Author Organization [facility] [employer] Address [facility] [id number] [address] [place] [address] Care Team Providers Care Sleep Lab Technician Name Role Phone Hever Caal DO Primary Care Provider [phone] Encounter Details Date Type Department Care Team (Late st Contact Info) Description 12/24/2024 Orders Only [facility] Internal Medicine - Family Medicine [address] [place] [phone] Hever Caal DO [address] [place] [address] Type 2 diabetes mellitus with hyperglycemia, with long-term current use of insulin ([facility]) Social History Tobacco Use Types Packs/Day Years [...] Internal Medicine - Family Medicine [address] [place] [address] Hever Caal DO [address] [place] [address] 06/11/2025 1:15 PM EST Office Visit [facility] [address] [place] [address] A [facility] [place] [address] Alfonzo Lucero MD [address] [place] [address] documented as of this encounter Visit Diagnoses Diagnosis Type 2 diabetes mellitus with hyperglycemia, with long-term current use of insulin ([facility]) documented in this encounter Additional Health Concerns Assessment Noted Time PHQ-9 Depression Total Score: 0 12/22/19 25 11:02 AM EDT A Body Mass Index follow-up plan has been documented for the patient 01/26/2024 3:52 PM EDT documented as of this encounter Care Teams Sleep Lab Technician Relationship Specialty Start Date End Date Hever Caal DO [address] [place] [address] PCP - General Internal Medicine 02/01/23 documented as of this encounter
--- OUTSIDE RECORDS SUMMARY | 2025-01-10 08:57 | XMS_ITS | Encounter Summary ---
Author Organization [facility] tem Address [facility] [place]-[id number] [address] [place] [address] Care Team Providers Care Voice Over Artist Name Role Phone Hever Caal DO Primary Care Provider [phone] Encounter Details Date Type Department Care Team ([facility] Contact Info) Description 02/13/2023 Orders Only [facility] Internal Medicine - Family Medicine [address] [place] [address] Hever Caal DO [address] [place] [address] Exocrine pancreatic insufficiency (Primary Dx) Social History Tobacco Use Types Packs/Day Years Used Date Smoking Tobacco: Never Smokeless Tobacco: Never Alcohol Use Standard Drinks/Week Comments Yes 0 (1 standard drink = 0.6 oz pur e alcohol) socially PHQ-2 Answer Date Recorded Total Score 0 02/16/2023 Childcare Answer Date Recorded Childcare Unknown 04/04/2020 [...] Description 04/05/2025 10:15 AM EDT [facility] [address] [place] [address] Hever Caal DO [address] [place] [address] 06/11/2025 1:15 PM EST Office Visit [facility] [address] [place] [address] A [facility] [place] [address] Alfonzo Lucero MD [address] [place] [address] documented as of this encounter Visit Diagnoses Diagnosis Exocrine pancreatic insufficiency- Primary Other specified disease of pancreas documented in this encounter Additional Health Concerns Assessment Noted Time PHQ-9 Depression Total Score: 0 02/04/20 23 12:17 PM EDT documented as of this encounter Care Teams Voice Over Artist Relationship Specialty Start Date End Date Hever Caal DO [address] [place] [address] PCP - General Internal Medicine 02/01/23 documented as of this encounter
--- OUTSIDE RECORDS SUMMARY | 2025-01-10 08:57 | XMS_ITS | Encounter Summary ---
Author Organization [email or web address] Address [facility] [id number] [address] [place] [address] Care Team Providers Care Score Caller Name Role Phone Hever Caal Primary Care Provider [phone] Encounter Details Date Type Department Care Team (Late st Contact Info) Description 06/25/2020 Telephone [facility] [address] [place] [address] A [facility] [place] [address] Danisha Zaragoza PA [address] [place] [address] Social History Tobacco Use Types Packs/Day Years Used Date Smoking Tobacco: Never Smokeless Tobacco: Never Alcohol Use Standard Drinks/Week Comments Yes 0 (1 standard drink = 0.6 oz pur e alcohol) Childcare Answer Date Recorded Childcare Unknown 04/04/2020 Employment Answer Date Recorded Employment Unknown 04/04/2020 Sex and Gender Information Value Date Recorded Sex Assigned at Not on file Legal Sex Male 11:21 AM EDT Gender Identity Not on file Sexual Orientation Not on file COVID-19 Exposure Response Date Recorded In the last month, have you been in contact with someone who was confirmed or suspected to have Coronavirus / COVID-19? No / Unsure 06/25/2020 1:05 PM EST documented as of this encounter Miscellaneous Notes * Telephone Encounter - MISHEL Hernandez - 06/25/2020 4:03 PM EST Would you please schedule him to see Dr. Lucero in a few months * Telephone Encounter - Kriss Copeland - 06/25/2020 4:03 PM EST SCHED FOR 10/07/20 documented in this encounter Plan of Treatment Upcoming Encounters Date Type Department Care Team (Late st Contact Info) Description 04/05/2025 10:15 AM EDT Office Visit [facility] Internal Medicine - Family Medicine [address] [place] [address] Hever Caal DO [address] [place] [address] 06/11/2025 1:15 PM EST Office Visit [facility] [address] [place] [address] [place] [address] Alfonzo Lucero MD [address] [place] [address] documented as of this encounter Visit Diagnoses Not on filedocumented in this encounter Additional Health Concerns Infection Onset Date Last Indicated Resolved Time Enteric Rule-Out 10/31/2020 10/31/2020 11/01/2020 12:13 AM EDT documented as of this encounter Care Teams Score Caller Relationship Specialty Start Date End Date Hever Caal DO [address] [place] [address] PCP - General Internal Medicine 02/01/23 documented as of this encounter
--- OUTSIDE RECORDS SUMMARY | 2025-01-10 08:57 | XMS_ITS | Encounter Summary ---
Author Organization [employer] tem Address [facility] [id number] [address] [place] [address] Care Team Providers Care Professor Of Astronomy Name Role Phone Hever Caal DO Primary Care Provider [phone] Encounter Details Date Type Department Care Team (Late st Contact Info) Description 03/26/2024 Telephone [facility] Internal Medicine - Family Medicine [address] [place] [address] Alverto White CMA Social History Tobacco Use [...] Telephone Encounter - Alverto White CMA - 03/26/2024 1:57 PM EDT ----- Message from Dr. Hever Caal DO sent at 03/26/2024 10:56 AM EDT ----- Reviewed. Has the patient received his short acting insulin yet (Fiasp)? I called pt and no he has not received his Fiasp. documented in this encounter Plan of Treatment Upcoming Encounters Date Type Department Care Team (Late st Contact Info) Description 04/05/2025 10:15 AM EDT Office Visit [facility] Internal Medicine - Family Medicine [address] [place] [address] Hever aCal DO [address] [place] [address] 06/11/2025 1:15 PM EST Office Visit [facility] [address] [place] [address] [place] [address] Alfonzo Lucero MD [address] [place] [address] documented as of this encounter Visit Diagnoses Not on filedocumented in this encounter Additional Health Concerns Assessment Noted Time PHQ-9 Depression Total Score: 0 03/16/20 24 11:36 AM EDT A Body Mass Index follow-up plan has been documented for the patient 01/26/2024 3:52 PM EDT documented as of this encounter Care Teams Professor Of Astronomy Relationship Specialty Start Date End Date Hever Caal DO [address] [place] [address] PCP - General Internal Medicine 02/01/23 documented as of this encounter
--- OUTSIDE RECORDS SUMMARY | 2025-01-10 08:57 | XMS_ITS | Encounter Summary ---
Author Organization [employer] Address [facility] [id number] [address] [place] [address] Care Team Providers Care Grinder Set Up Operator Surface Name Role Phone Hever Caal Primary Care Provider [phone] Encounter Details Date Type Department Care Team (Late st Contact Info) Description 08/17/2023 Telephone [facility] Internal Medicine - Family Medicine [address] [place] [address] Claudette De La Rosa CMA Social History Tobacco Use Types Packs/Day [...] encounter Miscellaneous Notes * Telephone Encounter - Claudette De La Rosa CMA - 08/17/2023 4:11 PM EST Good morning, Claudette! We referred the patient over to [facility] because of his [employer] insurance. We made 11 unsuccessful attempts to contact him on the [facility] side, the last attempt was on 08/15. Could you please ask him to call [phone] Option 1 to enroll? His [facility] Patient ID # is [id number] Thank you and please let me know if you have any other questions?? * Telephone Encounter - Hever Caal DO - 08/17/2023 4:11 PM EST Did you have time to try and contact him to let him know about this? * Telephone Encounter - Alverto White CMA - 08/17/2023 4:11 PM EST I called pt and he would like us to call him at 11:30 tomorrow this is the ONLY time he has to talkabout this. * Telephone Encounter - Hever Caal DO - 08/17/2023 4:11 PM EST I am sending this back to you as a reminder to give him a call around 11 30 on 08/19/2023 documented in this encounter Plan of Treatment Upcoming Encounters Date Type Department Care Team (Late st Contact Info) Description 04/05/2025 10:15 AM EDT Office Visit [facility] Internal Medicine - Family Medicine [address] [place] [address] Hever Caal DO [address] [place] [address] 06/11/2025 1:15 PM EST Office Visit [facility] [address] [place] [address] [place] [address] Alfonzo Lucero MD [address] [place] [address] documented as of this encounter Visit Diagnoses Not on filedocumented in this encounter Additional Health Concerns Assessment Noted Time PHQ-9 Depression Total Score: 0 08/02/19 24 10:56 AM EST documented as of this encounter Care Teams Grinder Set Up Operator Surface Relationship Specialty Start Date End Date Hever Caal DO [address] [place] [address] PCP - General Internal Medicine 02/01/23 documented as of this encounter
--- OUTSIDE RECORDS SUMMARY | 2025-01-10 08:57 | XMS_ITS | Encounter Summary ---
Author Organization [facility] tem Address [facility] [id number] [address] [place] [address] Care Team Providers Care Licensed Investment Sales Assistant Name Role Phone Hever Caal DO Primary Care Provider [phone] Encounter Details Date Type Department Care Team ([facility] Contact Info) Description 05/24/2023 Orders Only [facility] Internal Medicine - Family Medicine [address] [place] [phone] Hever Caal DO [address] [place] [address] Social History Tobacco Use Types Packs/Day Years [...] Upcoming Encounters Date Type Department Care Team ([facility] Contact Info) Description 04/05/2025 10:15 AM EDT Office Visit [facility] Medicine - Family Medicine [address] [place] [address] Hever Caal DO [address] [place] [address] 06/11/2025 1:15 PM EST Office Visit [facility] [address] [place] [address] A [facility] [place] [address] Alfonzo Lucero MD [facility] [place], [place] [id number] documented as of this encounter Procedures Procedure Name Priority Date/Time Associated Diagnosis Comments EXTERNAL LAB ORDERS / RESULTS Routine 05/23/2023 1:16 PM EST documented in this encounter Results * External Lab Orders / Results (05/23/2023 1:16 PM EST) us Scanning Provider External LAB ORDERABLES Final Result MANUALLY TRANSCRIBED RESULTS documented in this encounter Visit Diagnoses Not on filedocumented in this encounter Additional Health Concerns Assessment Noted Time PHQ-9 Depression Total Score: 0 05/03/20 23 11:55 AM EDT documented as of this encounter Care Teams Licensed Investment Sales Assistant Relationship Specialty Start Date End Date Hever Caal DO [address] [place] [address] PCP - General Internal Medicine 02/01/23 documented as of this encounter
--- OUTSIDE RECORDS SUMMARY | 2025-01-10 08:57 | XMS_ITS | Clinical Summary ---
Author Organization [facility] Address [address] [place] [address] Care Team Providers Care Metal Can Inspector Name Role Phone Hever Caal MD Primary Care Provider [phone] Allergies No known active allergies Medications ARIPiprazole (Abilify) 20 mg tablet Take 20 mg by mouth in the morning. 1 Active diphenoxylate-at ropine (Lomotil) 2.5-0.025 mg tablet Take 1 tablet by mouth if needed in the morning, at noon, in the evening, and at bedtime. 3 Active cholecalciferol (Vitamin D-3) 25 MCG (1000 UT) capsule Take 1,000 Units by mouth in the morning. 3 Active clonazePAM (KlonoPIN) 0.5 mg tablet Take 0.5 mg by mouth if needed in the morning, at noon, and at bedtime. 3 Active Creon 12,000-38,000 -60,000 unit capsule take 1 capsule by mouth every morning then 1 capsule AT 12PM then... (REFER TO PRESCRIPTION NOTES). 3 Active finasteride (Proscar) 5 mg tablet 3 Active imipramine (Tofranil) 50 mg tablet 25 tablets. 7 Active metaxalone (Skelaxin) 800 mg tablet Take 800 mg by mouth in the morning, afternoon, and at bedtime. 3 Active magnesium oxide 400 mg magnesium capsule Take 500 mg by mouth in the morning. Active mirabegron 50 mg tablet extended release 24 hr Take 50 mg by mouth in the morning. 3 Active semaglutide (Rybelsus) 7 mg tablet Take 7 mg by mouth in the morning. 3 Active solifenacin (VESIcare) 5 mg tablet Take 5 mg by mouth in the morning. 3 Active tamsulosin (Flomax) 0.4 mg 24 hr capsule 7 Active ibuprofen 800 mg tablet Take 800 mg by mouth every 6 (six) hours if needed. Active atorvastatin (Lipitor) 40 mg tabletIndication s:Hypercholester olemia Take 1 tablet (40 mg) by mouth in the morning. 90 tablet 3 3 Active hydroCHLOROthiaz frank (HYDRODiuril) 25 mg tabletIndication s:Primary hypertension Take 1 tablet (25 mg) by mouth in the morning. 90 tablet 3 3 Active lisinopril 5 mg tabletIndication s:Primary hypertension Take 1 tablet (5 mg) by mouth in the morning. 90 tablet 3 3 Active cyanocobalamin (Vitamin B-12) 1,000 mcg tablet Take 1,000 mcg by mouth in the morning. 3 Active glipiZIDE (Glucotrol) 10 mg tablet 3 Active risankizumab-rza a (Skyrizi) 150 mg/mL pen injector Inject 150 mg under the skin. 3 Active sertraline (Zoloft) 25 mg tablet Take 25 mg by mouth at bedtime. 3 Active Gemtesa 75 mg tablet Take 75 mg by mouth in the morning. 4 Active Active Problems Problem Noted Date Diagnosed Date Chronic maxillary sinusitis 04/20/202305/11 Anxiety 03/04/2023 03/04/2023 Asthma 03/04/2023 03/04/2023 Pre-operative cardiovascular examination 023 Assessment & Plan (03/04/2023 11:38 AM EDT): RCRI- 0 points Class I Risk 3.9 % 30-day risk of , LA, or cardiac arrest From a cardiac perspective [...] aerobic functional capacity greater than 6-8 METS Abnormal cardiovascular stress test 03/04/2023 Assessment & Plan (03/04/2023 12:01 PM EDT): Reviewed stress test with patient no ischemia [...] office for any myalgias or concerning symptoms Exocrine pancreatic insufficiency 02/13/2023 03/04/2023 Arthritis 01/04/2023 03/04/2023 Depressive disorder 01/04/2023 03/04/2023 Diabetes mellitus 01/04/2023 03/04/2023 Assessment & Plan (03/04/2023 11:34 AM EDT): Follow-up with PCP for glycemic management Gastroesophageal reflux disease 01/04/2023 03/04/2023 Hypercholesterolemia 01/04/2023 03/04/2023 Assessment & Plan (03/23/2024 12:09 PM EDT): Lipid abnormalities are well controlled in review of lipids from last may Liver function stable Assessment & Plan (03/04/2023 12:11 PM EDT): ASCVD recommendations to start statin we will start Lipitor moderate dose 40 mg daily In light that he is diabetic, obese, and 50% risk of cardiovascular disease in his lifetime Repeat hepatic function and lipid level in 2 to 3 months Discussed with patient to call office for any muscle aches, joint aches myalgias or any concerns after starting Hypertension 01/04/2023 03/04/2023 Assessment & Plan (03/23/2024 12:09 PM EDT): Hypertension is currently well-controlled 107/67 Continue lisinopril 5 mg daily Renal function normal F/U with PCP Assessment & Plan (03/04/2023 11:39 AM EDT): Hypertension is Controlled 142/82 We will add hydrochlorothiazide for blood pressure management and some lower extremity edema and slight diuretic effect Repeat BMP in 1 to 2 weeks to check kidney function and electrolytes Psoriasis 01/04/2023 03/04/2023 Sleep apnea 01/04/2023 03/04/2023 Assessment & Plan (03/04/2023 12:12 PM EDT): Follow Up with PCP for further management, strongly recommended weight loss Enuresis 04/22/2020 03/04/2023 Overview (03/04/2023): 04/22/20: Nocturnal enuresis currently using tamsulosin, finasteride and imipramine. pvr 45 ccs. Plan ddavp 0.2 mg, check sodium level 1 week 05/14/20: No improvement with 0.2 mg. He increased to 0.4 mg and notes an 80% improvement from baseline. He is content with current state. 06/25/20: Return of symptoms. Will increase DDAVP to 0.6mg and check Na+ in a week. I advised repeat sleep study, but he declined. 10/07/20: Reasonably well controlled with DDAVP 0.6 mg nightly. plan to continue. Control sugars. Again suggested repeat testing for sleep apnea which he declined. 06/16/21: Progressive nocturia. He is contacting a physician to get Inspire to treat presumed sleep apnea. Should help. 12/22/21: He is going to stop taking the DDAVP as he currently is able to empty his bladder reasonably well with voiding while standing prior to bedtime which seems to help. Additionally his CPAP machine should help with some of the nocturia 06/23/22: Return of symptoms. He will restart DDAVP. He will start with 0.2mg and check Na in a week. Can titrate if needed. 08/18/22: Persistent issues despite DDAVP 0.6. Interested in trial of Myrbetriq. 09/01/22: Improved with Myrbetriq. Discontinued DDAVP. PVR 75. Interested in a trial of Myrbetriq 50mg in combination with VESIcare 5mg 10/19/22: Improved furhter with myrbetriq 50 mg, vesciare 5 mg. Plan increase dose of vesicare to 10 mg. Recheck pvr 1 month Also discussed botox as an alternative but given the risk of retention he was not inclined to do this. 11/16/22: Doing well using combination myrbetriq 50 mg, VESIcare 10 mg, impramine, and finasteride and tamsulosin. Last Assessment & Plan: We discussed the potential side effects of VESIcare and the potential concerns regarding memory/dementia. He voiced understanding and would like to go forward with a trial. I did send the prescription to his pharmacy. He will let me know if he has any trouble getting it covered by the insurance. Morbid obesity 01/27/2017 03/04/2023 Assessment & Plan (03/04/2023 11:35 AM EDT): Recommended weight loss with heart healthy diet and regular exercise regimen and he voiced understanding Family History Medical History Relation Name Comments Coronary artery disease Father Heart attack Father Relation Name Status Comments Father Social History Tobacco Use Types Packs/Day Years Used Date Smoking Tobacco: Never Smokeless Tobacco: Never Alcohol Use Standard Drinks/Week Comments Yes 0 (1 standard drink = 0.6 oz pur e alcohol) occasional [place] Safety & Environment Answer Date Rec orded Fear of Current or Ex-Partner Not on file Emotionally Abused Not on file 09/01/2023 Physically Abused Not on file 09/01/2023 Sexually Abused Not on file 09/01/2023 Physically or Sexually Abused Not on file Sex and Gender Information Value Date Recorded Sex Assigned at Not on file Legal Sex Male 9:29 PM EDT Gender Identity Not on file Sexual Orientation Not on file Last Filed Vital Signs Vital Sign Reading Time Taken Comments Blood Pressure 107/67 03/23/2024 11:40 AM EDT Pulse 64 03/23/2024 11:40 AM EDT Temperature - - Respiratory Rate - - Oxygen Saturation 96% 03/23/2024 11:40 AM EDT Inhaled Oxygen Concentration - - Weight 138 kg (304 lb) 03/23/2024 11:40 AM EDT Height 177.8 cm (5' 10 ) 03/23/2024 11:40 AM EDT Body Mass Index 43.62 03/23/2024 11:40 AM EDT Plan of Treatment Health Maintenance Due Date Last Done Comments CT Colonography 1970 Colonoscopy 1970 Colorectal Cancer Screening 1970 Diabetes: Hemoglobin A1C 1970 FIT-DNA 1970 FIT 1970 FOBT 1970 Sigmoidoscopy 1970 Diabetes: Retinopathy Screening 1980 Depression Screening 1982 Hepatitis B Vaccines (1 of 3 - 19+ 3-dose series) 1989 Pneumococcal Vaccine: Pediatrics (0 to 5 Years) and At-Risk Patients (6 to 64 Years) (1 of 2 - PCV) 1989 Zoster Vaccines (1 of 2) 2020 COVID-19 Vaccine ( season) 2024 07/13/2021, 11/01/2020, 10/11/2020 Diabetes: Urine Protein Screening 04/25/2024 04/25/2023, 01/04/2023 Influenza Vaccine (#1) 2025 , 04/28/2022, 07/13/2021, Additional history exists Adult Tetanus 06/24/2033 06/24/2023 HIB Vaccines Aged Out No longer eligi ble based on patient's age to complete this topic HPV Vaccines Aged Out No longer eligi ble based on patient's age to complete this topic IPV Vaccines Aged Out No longer eligi ble based on patient's age to complete this topic Meningococcal B Vaccine Aged Out No l onger eligible based on patient's age to complete this topic Meningococcal Vaccine Aged Out No sofy guillermo eligible based on patient's age to complete this topic Rotavirus Vaccines Aged Out No longer eligible based on patient's age to complete this topic Insurance [employer] Care Teams Metal Can Inspector Relationship Specialty Start Date End Date Hever Caal MD PCP - General 03/02/23
--- OUTSIDE RECORDS SUMMARY | 2025-01-10 08:57 | XMS_ITS | Encounter Summary ---
Author Organization [facility] Address [id number] [address] [place] [address] Care Team Providers Care Roll Tender Name Role Phone Hever Caal DO Primary Care Provider [phone] Encounter Details Date Type Department Care Team ([facility] Contact Info) Description 02/07/2023 Orders Only [facility] Internal [facility] - Family Medicine [address] [place] [phone] Hever Caal DO [address] [place] [address] Diarrhea of infectious origin (Primary Dx) Social History Tobacco Use Types Packs/Day Years Used Date Smoking Tobacco: Never Smokeless Tobacco: Never Alcohol Use Standard Drinks/Week Comments Yes 0 (1 standard drink = 0.6 oz pur e alcohol) socially PHQ-2 Answer Date Recorded Total Score 0 02/03/2023 Childcare Answer Date Recorded Childcare Unknown 04/04/2020 [...] Upcoming Encounters Date Type Department Care Team ([facility] Contact Info) Description 04/05/2025 10:15 AM EDT Office [facility] - [facility] Medicine [address] [place] [phone] Hever Caal DO [address] [place] [address] 06/11/2025 1:15 PM EST Office Visit [facility] [address] [place] [address] [facility] [place] [phone] Alfonzo Lucero MD [facility] [place] [address] documented as of this encounter Visit Diagnoses Diagnosis Diarrhea of infectious origin- Primary Diarrhea of presumed infectious origin documented in this encounter Additional Health Concerns Assessment Noted Time PHQ-9 Depression Total Score: 0 02/04/20 12:17 PM EDT documented as of this encounter Care Teams Roll Tender Relationship Specialty Start Date End Date Hever Caal DO [address] [place] [address] PCP - General Internal Medicine 02/01/23 documented as of this encounter
--- OUTSIDE RECORDS SUMMARY | 2025-01-10 08:57 | XMS_ITS | Clinical Summary ---
Author Organization [employer] Address [id number] [address] [place] [address] Care Team Providers Care Handle Sander Operator Name Role Phone Hever Caal Primary Care Provider Allergies No known active allergies Medications CALCIUM CITRATE ORAL Take 600 mg by mouth in the morning. Active imipramine (TOFRANIL) 25 mg tablet 022 Active ARIPiprazole (ABILIFY) 15 mg tablet Take 1 tablet (15 mg total) by mouth in the morning. 023 Active lancets (onetouch ultrasoft) miscIndications :Type 2 diabetes mellitus without complication, without long-term current use of insulin ([facility]) Use once daily 100 each 1 023 Active blood-glucose meter kitIndications: Type 2 diabetes mellitus without complication, without long-term current use of insulin ([facility]) Use daily as instructed 1 each 023 Active blood sugar diagnostic (glucose blood) stripIndication s:Type 2 diabetes mellitus without complication, without long-term current use of insulin ([facility]) Use once daily in AM 100 strip 1 023 Active sertraline (ZOLOFT) 50 mg tabletIndicatio ns:Bipolar 1 disorder, depressed ([facility]) Take 1 tablet (50 mg total) by mouth in the morning. 90 tablet 024 Active cyanocobalamin 1000 MCG tablet Take 1 tablet (1,000 mcg total) by mouth. Active blood-glucose sensor (DEXCOM G7 SENSOR) deviceIndicatio ns:Type 2 diabetes mellitus with hyperglycemia, with long-term current use of insulin ([facility]) 1 each by miscellaneous route every 10 days. 9 each 3 024 Active blood-glucose meter,continuou s (DEXCOM G7 STAFFING PROGRAM MANAGER) miscIndications :Type 2 diabetes mellitus with hyperglycemia, with long-term current use of insulin ([facility]) 1 each by miscellaneous route every 3 (three) months. 1 each 3 Active finasteride (PROSCAR) 5 mg tablet Take 1 tablet (5 mg total) by mouth in the morning for 360 days. 90 tablet 3 024 2024 Active solifenacin (VESICARE) 10 mg tablet Take 1 tablet (10 mg total) by mouth in the morning. 90 tablet 3 024 Active VITAMIN D3 25 mcg (1,000 unit) capsuleIndicati ons:Psoriasis TAKE 1 CAPSULE EVERY MORNING 90 capsule 1 025 Active mirabegron (MYRBETRIQ) 50 mg tablet extended release 24 hrIndications:E nuresis Take 1 tablet (50 mg total) by mouth in the morning. 90 tablet 3 025 Active tamsulosin (FLOMAX) 0.4 mg capsuleIndicati ons:Enuresis TAKE 1 CAPSULE NIGHTLY 90 capsule 1 025 Active atorvastatin (LIPITOR) 40 mg tabletIndicatio ns:Hypercholest erolemia TAKE 1 TABLET IN THE MORNING 90 tablet 1 025 Active SKYRIZI 150 mg/mL pen injector 025 Active ZENPEP 40,000-126,000- 168,000 unit capsule,delayed release(DR/EC) TAKE 2 CAPSULES IN THE MORNING, AT NOON AND IN THE EVENING WITH MEALS 500 capsule 1 025 Active montelukast (SINGULAIR) 10 mg tabletIndicatio ns:Mild persistent asthma without complication TAKE 1 TABLET NIGHTLY 90 tablet 025 Active insulin aspart, niacinamide, (FIASP FLEXTOUCH U-100 INSULIN) 100 unit/mL (3 mL) insulin penIndications: Type 2 diabetes mellitus with hyperglycemia, with long-term current use of insulin ([facility]) If sugar 0-125 0 units;126-150 5 units; 151-200 10 units; 201-250 15 units; more than 250 25 unit; Max 75 units per day 3 mL 025 Active pen needle, diabetic (BD ULTRA-FINE MINI PEN NEEDLE) 31 gauge x 316 needleIndicatio ns:Type 2 diabetes mellitus with hyperglycemia, with long-term current use of insulin ([facility]) 1 Pen Needle by miscellaneous route in the morning and 1 Pen Needle at noon and 1 Pen Needle in the evening and 1 Pen Needle before bedtime. 400 each 1 025 Active insulin glargine-yfgn 100 unit/mL (3 mL) insulin penIndications: Type 2 diabetes mellitus with hyperglycemia, with long-term current use of insulin ([facility]) Inject 50 Units under the skin nightly. 45 mL 1 025 Active semaglutide (OZEMPIC) 0.25 mg or 0.5 mg (2 mg/3 mL) pen injectorIndicat ions:Type 2 diabetes mellitus with hyperglycemia, with long-term current use of insulin ([facility]) Inject 0.5 mg under the skin every 7 days. 3 mL 5 025 Active pen needle, diabetic 32 gauge x 5/32 needleIndicatio ns:Type 2 diabetes mellitus with hyperglycemia, with long-term current use of insulin ([facility]) 1 Unit by miscellaneous route 3 (three) times a day. 300 each 3 024 2024 Discontinued(F ormulary change) insulin aspart, niacinamide, (FIASP FLEXTOUCH U-100 INSULIN) 100 unit/mL (3 mL) insulin penIndications: Type 2 diabetes mellitus with hyperglycemia, with long-term current use of insulin ([facility]) If sugar 0-150 0 units;151-200 8 units; 201-250 15 units; 251-300 20 units; more than 300 25 unit; Max 75 units per day 15 mL 1 025 2024 Discontinued pen needle, diabetic (BD ULTRA-FINE MINI PEN NEEDLE) 31 gauge x 3/16 needleIndicatio ns:Type 2 diabetes mellitus with hyperglycemia, with long-term current use of insulin ([facility]) 1 Pen Needle by miscellaneous route in the morning and 1 Pen Needle at noon and 1 Pen Needle in the evening and 1 Pen Needle before bedtime. 400 each 1 025 2024 Discontinued(R eorder) insulin glargine 300 unit/mL (TOUJEO SOLOSTAR U-300 INSULIN) 300 unit/mL (1.5 mL) insulin penIndications: Type 2 diabetes mellitus with hyperglycemia, with long-term current use of insulin ([facility]) Inject 50 Units under the skin nightly. 4.5 mL 1 025 2024 Discontinued(R eorder) Immunization, In Clinic,Indicati ons:Encounter for immunization Inject 0.5 mL into the appropriate muscle once for 1 dose. Pneumococcal Conjugate 20-Valent. Sign this order to satisfy the OSBOP Positive ID requirements for immunization orders. 025 2024 tirzepatide (MOUNJARO) 5 mg/0.5 mL pen injectorIndicat ions:Type 2 diabetes mellitus with hyperglycemia, with long-term current use of insulin ([facility]) Inject 5 mg under the skin every 7 days. 6 mL 025 2024 Discontinued(R eorder) insulin glargine 300 unit/mL (TOUJEO SOLOSTAR U-300 INSULIN) 300 unit/mL (1.5 mL) insulin penIndications: Type 2 diabetes mellitus with hyperglycemia, with long-term current use of insulin ([facility]) Inject 50 Units under the skin nightly. 4.5 mL 1 025 2024 Discontinued(F ormulary change) tirzepatide (MOUNJARO) 5 mg/0.5 mL pen injectorIndicat ions:Type 2 diabetes mellitus with hyperglycemia, with long-term current use of insulin ([facility]) Inject 5 mg under the skin every 7 days. 6 mL 025 2024 Discontinued(R eorder) tirzepatide (MOUNJARO) 5 mg/0.5 mL pen injectorIndicat ions:Type 2 diabetes mellitus with hyperglycemia, with long-term current use of insulin ([facility]) Inject 5 mg under the skin every 7 days. 2 mL 5 025 2024 Discontinued(F ormulary change) Active Problems Problem Noted Date Diagnosed Date Chronic maxillary sinusitis 04/20/2023 Anxiety 03/04/2023 Exocrine pancreatic insufficiency 02/13/2023 Sleep apnea 01/04/2023 01/04/2023 Psoriasis 01/04/2023 01/04/2023 Hypertension 01/04/2023 01/04/2023 Hypercholesterolemia 01/04/2023 01/04/2023 Gastroesophageal reflux disease 01/04/2023 01/04/2023 Diabetes mellitus 01/04/2023 01/04/2023 Depressive disorder 01/04/2023 01/04/2023 Arthritis 01/04/2023 01/04/2023 Enuresis 04/22/2020 Overview (06/05/2024): 04/22/20: Nocturnal enuresis currently using tamsulosin, finasteride [...] 10 mg, impramine, and finasteride and tamsulosin. 11/29/2023: Markedly improved with stopping muscle relaxants. Plan to stop VESIcare. If no change in 2 weeks discontinue Myrbetriq. 06/05/2024: Currently with enuresis once or twice per week using Myrbetriq, Gemtesa, tamsulosin 0.8 mg, finasteride and imipramine. Recommendation was to stop Gemtesa as that is a duplicate medication with the Myrbetriq. Can add back VESIcare 10 mg Assessment & Plan (09/01/2022 2:00 PM EST): We discussed the potential side effects of VESIcare and the potential concerns regarding memory/dementia. He voiced understanding and would like to go forward with a trial. I did send the prescription to his pharmacy. He will let me know if he has any trouble getting it covered by the insurance. Assessment & Plan (06/23/2022 12:55 PM EST): He does have some issues with daytime frequency as well but reports this is not his main problem. We could consider an anticholinergic or a beta 3 agonist if symptoms persist. If so, he will need to come back after starting the medication to check a PVR Assessment & Plan (06/25/2020 4:02 PM EST): We did discuss that if the DDAVP dose increase does not help, he really should address the sleep apnea as it likely is the crux of the problem. Assessment & Plan (05/14/2020 2:03 PM EST): He will need sodium recheck due to the increased dose. UA today actually shows glucose as well so rather than just check sodium, we will check a full BMP. He denies any current diagnosis of diabetes. Morbid obesity 01/27/2017 01/04/2023 Encounters Date Type Department Care Team Description 01/04/2025 Telephone [facility] [address] [place] [address] Alverto White, [facility] 12/31/2024 Telephone [facility] [address] [place] [address] Alverto White, [facility] 12/31/2024 Orders Only [facility] [address] [place] [address] Ref Prov, Not In System 12/25/2024 Orders Only [facility] [address] [place] [address] Hever Caal, Type 2 diabetes mellitus with hyperglycemia, with long-term current use of insulin ([facility]) (Primary Dx) 12/24/2024 Orders Only [facility] [address] [place] [address] Hever Caal, Type 2 diabetes mellitus with hyperglycemia, with long-term current use of insulin ([facility]) 12/24/2024 Telephone [facility] [address] [place] [address] Alverto White, [facility] 12/23/2024 Orders Only [facility] [address] [place] [address] Hever Caal DO 12/21/2024 11:00 AM EDT Office Visit [facility] [address] [place] [address] Hever Caal, Type 2 diabetes mellitus with hyperglycemia, with long-term current use of insulin ([facility] (Primary Dx); Essential hypertension; Obstructive sleep apnea syndrome; Encounter for immunization 12/21/2024 Travel 11/25/2024 Refill [facility] [address] [place] [address] Hever Caal, Mild persistent asthma without complication 11/23/2024 Refill [facility] - [facility] [address] [place] [address] Hever Caal DO 11/20/2024 Refill [facility] - Family [facility] [address] [place] [address] Willa, Nydia, ACADEMIC COUNSELOR Type 2 diabetes mellitus with hyperglycemia, with long-term current use of insulin ([facility]) 11/13/2024 Orders Only [facility] - [facility] [address] [place] [address] Ref Prov, Not In System 11/12/2024 4:00 PM EDT Office Visit [facility] - [facility] [address] [place] [address] Hever Caal DO Laceration of right lower leg, initial encounter (Primary Dx); Type 2 diabetes mellitus with hyperglycemia, with long-term current use of insulin ([facility]) 11/12/2024 Travel 10/25/2024 Orders Only [facility] Internal [facility] [address] [place] [address] Ref Prov, Not In System 10/17/2024 Refill [facility] [address] [place] [address] Hever Caal, Type 2 diabetes mellitus with hyperglycemia, with long-term current use of insulin ([facility]) from Last 3 Months Immunizations Immunization Administration Dates Next Due Influenza (IM) Preservative Free 08/28/2024 Influenza, Injectable, Mdck, Preservative Free, Quad 07/13/2021 Influenza, Injectable, quadrivalent (PF) 023,04/28/2022,04/11/2020 Pneumococcal Conjugate 20-valent 12/21/2024 Tdap 06/24/2023 Family History Medical History Relation Name Comments Heart disease Father Stroke Father Breast cancer Mother No Known Problems Sister 1 No Known Problems Sister 2 Relation Name Status Comments Father Mother Sister 1 Alive Sister 2 Alive Social History Tobacco Use Types Packs/Day Years Used Date Smoking Tobacco: Never Smokeless Tobacco: Never Tobacco Cessation:Counseling Given: Not Answered Alcohol Use Standard Drinks/Week Comments Yes 0 [...] Sign Reading Time Taken Comments Blood Pressure 132/70 12/21/2024 11:03 AM EDT Pulse 60 12/21/2024 11:03 AM EDT Temperature 36.6 C (97.9 F) 12/21/2024 11:03 AM EDT Respiratory Rate 18 12/21/2024 11:0 3 AM EDT Oxygen Saturation 96% 12/21/2024 11: 03 AM EDT Inhaled Oxygen Concentration - - Weight 141.3 kg (311 lb 6.4 oz) 025 11:03 AM EDT Height 177.8 cm (5' 10 ) 12/21/2024 11: 03 AM EDT Body Mass Index 44.68 12/21/2024 11:03 AM EDT Plan of Treatment Upcoming Encounters Date Type Department Care Team (Late st Contact Info) Description 04/05/2025 10:15 AM EDT Office Visit [facility] [address] [place] [address] Hever Caal, DO [address] [place] [address] 06/11/2025 1:15 PM EST Office Visit [facility] [address] [place] [address] [place] [address] Alfonzo Lucero MD [address] [place] [address] Health Maintenance Due Date Last Done Comments Diabetic Ophthalmology Exam 1970 Zoster (Shingles) Vaccine (1 of 2) 2020 Colonoscopy 11/07/2023 11/06/2020, 11/06/2020 COVID-19 Vaccine (2023-2 5 season) 2024 07/13/2021, 11/01/2020, 10/11/2020 Adult BMI Follow Up Plan 01/25/2025 01/26/2024 Influenza Vaccine 03/11/2025 08/28/2024, , 04/28/2022, Additional history exists Adult BMI Screening 12/21/2025 12/21/2024 Depression Screening 12/21/2025 12/21/2024 Diabetic Foot Exam 12/21/2025 12/21/2024, 0 01/04/2023, 01/04/2023 Tobacco Screening 12/21/2025 12/21/2024 DTaP,Tdap and Td Vaccines (3 - Td or Tdap) 10/31/2034 10/31/2024, 06/24/2023 Medical Devices Not on file Procedures Procedure Name Priority Date/Time Associated Diagnosis Comments COMPREHENSIVE METABOLIC PANEL Routine 12/21/2024 11:57 AM EDT Type 2 diabetes mellitus with hyperglycemia, with long-term current use of insulin ([facility]) HEMOGLOBIN A1C Routine 12/21/2024 11:57 AM EDT Type 2 diabetes mellitus with hyperglycemia, with long-term current use of insulin ([facility]) LIPID PROFILE Routine 12/21/2024 11:57 AM EDT Type 2 diabetes mellitus with hyperglycemia, with long-term current use of insulin ([facility]) VITAMIN B12 Routine 12/21/2024 11:57 AM EDT Type 2 diabetes mellitus with hyperglycemia, with long-term current use of insulin ([facility]) EXTERNAL STAFFING PROGRAM MANAGER, CGM SYS Routine 12/21/2024 11:16 AM EDT EXTERNAL STAFFING PROGRAM MANAGER, CGM SYS Routine 11/12/2024 6:47 AM EDT EXTERNAL STAFFING PROGRAM MANAGER, CGM SYS Routine 10/17/2024 5:49 PM EDT COLONOSCOPY 11/06/2020 8:51 AM EDT from Last 3 Months or Most Recently Relevant to Health Maintenance Results * (ABNORMAL) Hemoglobin A1c (12/21/2024 11:57 AM EDT) HEMOGLOBIN A1C 8.3(H) 4.4 - 5.6 % 12/21/2024 5:54 PM EDT [facility] Comment: ADA Guidelines Result HgbA1c Normal : less than 5.7 % Prediabetes : 5.7 % to 6.4 % Diabetes : > 6.4 % Use with caution in patients with abnormal hemoglobin variants as the half-life of red blood cells and in vivo glycation rates are affected. EST. AVERAGE GLUCOSE 192 mg/dL 12/21/2024 5:54 PM EDT [facility] Blood Venous blood / Unknown 12/21/2024 11:57 AM EDT 12/21/2024 11:57 AM EDT us Hever Caal DO LAB BLOOD ORDERABLES Final Resul t [facility] [address] [place] [address], [place] [phone] * (ABNORMAL) Vitamin B12 (12/21/2024 11:57 AM EDT) VITAMIN B12 1,005(H) 180 - 914 pg/mL 12/21/2024 6:12 PM EDT [facility] Blood Venous blood / Unknown 12/21/2024 11:57 AM EDT 12/21/2024 11:57 AM EDT Hever Caal DO LAB BLOOD ORDERABLES Final Resul t [facility] [address] [place] [address], [place] [phone] * (ABNORMAL) Lipid profile (12/21/2024 11:57 AM EDT) [facility] CHOLESTEROL 103(L) 150 - 200 mg/dL 12/21/2024 5:54 PM EDT [facility] TRIGLYCERIDE 83 27 - 150 mg/dL 12/21/2024 5:54 PM EDT [facility] HDL CHOLESTEROL 42 >39 mg/dL 5:54 PM EDT [facility] Comment: HDL <40 mg/dL - High Risk HDL > or = 40mg/dL- Desirable HDL >60 mg/dL - Negative Risk LDL (CALC) 44 <130 mg/dL 12/21/2024 5:54 PM EDT [facility] Comment: LDL <100 mg/dL - Desirable LDL >160 mg/dL - High Risk CHOLESTEROL:HDL 2.5 1.0 - 5.0 5:54 PM EDT [facility] VERY LOW LIPOPROTEIN 17 0 - 30 mg/dL 12/21/2024 5:54 PM EDT [facility] Blood Venous blood / Unknown 12/21/2024 11:57 AM EDT 12/21/2024 11:57 AM EDT us Hever Caal DO LAB BLOOD ORDERABLES Final Resul t [facility] [address] [place] [address], [place] [phone] * (ABNORMAL) Comprehensive metabolic panel (12/21/2024 11:57 AM EDT) SODIUM 139 134 - 146 mmol/L 12/21/2024 5:54 PM EDT [facility] POTASSIUM 4.2 3.5 - 5.0 mmol/L 12/21/2024 5:54 PM EDT [facility] CHLORIDE 102 98 - 109 mmol/L 12/21/2024 5:54 PM EDT [facility] CARBON DIOXIDE 32 22 - 32 mmol/L 12/21/2024 5:54 PM EDT [facility] ANION GAP 5 5 - 15 mmol/L 12/21/2024 5:54 PM EDT [facility] BLOOD UREA NITROGEN 16 5 - 23 mg/dL 12/21/2024 5:54 PM T [facility] CREATININE 0.78 0.60 - 1.30 mg/dL 12/21/2024 5:54 PM EDT [facility] Comment:METHOD TRACEABLE TO IDMS STANDARD GLUCOSE 132(H) 65 - 99 mg/dL 12/21/2024 5:54 PM T [facility] CALCIUM 9.3 8.5 - 10.5 mg/dL 12/21/2024 5:54 PM EDT [facility] TOTAL PROTEIN 6.9 6.0 - 8.0 g/dL 12/21/2024 5:54 PM T [facility] ALBUMIN 3.9 3.2 - 5.3 g/dL 12/21/2024 5:54 PM EDT [facility] ALKALINE PHOSPHATASE 111 39 - 130 U/L 12/21/2024 5:54 PM EDT [facility] AST 22 <=41 U/L 12/21/2024 5:54 PM EDT [facility] ALT 29 <=40 U/L 12/21/2024 5:54 PM T [facility] BILIRUBIN,TOTAL 0.2(L) 0.3 - 1.2 mg/dL 12/21/2024 5:54 PM EDT [facility] EGFR Non-Race Dependent >90 >=60 ml/min/1.7 3sq.m 12/21/2024 5:54 PM EDT [facility] Comment: Reported eGFR is based on the CKD-EPI 2020 equation that does not use a race coefficient. Blood Venous blood / Unknown 12/21/2024 11:57 AM EDT 12/21/2024 11:57 AM EDT us Hever Caal DO LAB BLOOD ORDERABLES Final Resul t Performing Organization Address City/[facility] Co de Phone Number [facility] [address] [place] [address], [place] [phone] * EXTERNAL STAFFING PROGRAM MANAGER, CGM SYS (12/21/2024 11:16 AM EDT) Only the most recent of3 resultswithin the time period is included. us Not In System Ref Prov [place] MISCELLANEOUS [employer] Final Result MANUALLY TRANSCRIBED RESULTS * Colonoscopy (11/06/2020 8:51 AM EDT) 11/06/2020 8:51 AM EDT Narrative PM CARDIOVASCULAR - 11/06/2020 9:23 AM EDT [facility] Patient Name: Jmaar Joshua Procedure Date No Time: 11/06/2020 CSN : [id number] Date of : 1970 Admit Type: Outpatient Age: 50 Room: [place] [address] Gender: Male Note Status: Finalized Attending MD: Etienne Rosas DO Procedure: Colonoscopy Indications: Chronic diarrhea Providers: Etienne Rosas DO Referring MD: Etienne Rosas DO Medicines: Propofol per Anesthesia Complications: No immediate complications. Procedure: After I obtained informed consent, the scope was passed under direct vision. Throughout the procedure, the patient's blood pressure, pulse, and oxygen saturations were monitored continuously. The [employer] [id number] #[id number] ADULT COLONOSCOPE was introduced through the anus and advanced to the cecum, identified by appendiceal orifice and ileocecal valve. The colonoscopy was performed with difficulty due to the patient's body habitus. The patient tolerated the procedure well. The quality of the bowel preparation was adequate to identify polyps 6 mm and larger in size. Findings: The perianal and digital rectal examinations were normal. Three semi-pedunculated polyps were found in the mid descending colon, splenic flexure, transverse colon and mid transverse colon. The polyps were 4 to 9 mm in size. These polyps were removed with a hot snare. Resection and retrieval were complete. The colon (entire examined portion) appeared normal. Biopsies for histology were taken with a cold forceps from the ascending colon, transverse colon, descending colon and sigmoid colon for evaluation of microscopic colitis. The exam was otherwise without abnormality on direct and retroflexion views. Estimated Blood Loss: Estimated blood loss: none. Impression: - Three 4 to 9 mm polyps in the mid descending colon, at the splenic flexure, in the transverse colon and in the mid transverse colon, removed with a hot snare. Resected and retrieved. - The entire examined colon is normal. Biopsied. - The examination was otherwise normal on direct and retroflexion views. Recommendation: - Discharge patient to home. - Patient has a contact number available for emergencies. The signs and symptoms of potential delayed complications were discussed with the patient. Return to normal activities tomorrow. Written discharge instructions were provided to the patient. - Repeat colonoscopy in 3 years for surveillance based on pathology results. - Return to my office in 1 week. Procedure Code(s): --- Professional --- 25171, Colonoscopy, flexible; with removal of tumor(s), polyp(s), or other lesion(s) by snare technique [id number], 59, Colonoscopy, flexible; with biopsy, single or multiple Diagnosis Code(s): --- Professional --- K63.5, Polyp of colon K52.9, Noninfective gastroenteritis and colitis, unspecified CPT copyright 2019 [employer]. All rights reserved. The codes documented in this report are preliminary and upon database administration project manager review may be revised to meet current compliance requirements. DO Etienne Burt DO 11/06/2020 9:23:25 AM Number of Addenda: 0 Note Initiated On: 11/06/2020 8:51 AM Procedure Note Etienne Rosas DO - 11/06/2020 [facility] Patient Name: Jamar Joshua Procedure Date No Time: 11/06/2020 CSN : [id number] Date of : 1970 Admit Type: Outpatient Age: 50 Room: [place] [address] Gender: Male Note Status: Finalized Attending MD: Etienne Rosas DO Procedure: Colonoscopy Indications: Chronic diarrhea Providers: Etienne Rosas DO Referring MD: Etienne Rosas DO Medicines: Propofol per Anesthesia Complications: No immediate complications. Procedure: After I obtained informed consent, the scope was passed under direct vision. Throughout theprocedure, the patient's blood pressure, pulse, and oxygen saturations were monitored continuously. [employer] [id number] #[id number] ADULT COLONOSCOPE was introduced through the anus and advanced to the cecum,identified by appendiceal orifice and ileocecal valve. The colonoscopy was performed with difficulty due tothe patient's body habitus. The patient tolerated the procedure well. The quality of the bowelpreparation was adequate to identify polyps 6 mm and larger in size. Findings: The perianal and digital rectal examinations were normal. Three semi-pedunculated polyps were found in the mid descendingcolon, splenic flexure, transverse colon and mid transverse colon. Thepolyps were 4 to 9 mm in size. These polyps were removed with a hot snare. Resection and retrieval were complete. The colon (entire examined portion) appeared normal. Biopsies for histology were taken with a cold forceps from the ascending colon, transverse colon, descending colon and sigmoid colon for evaluationof microscopic colitis. The exam was otherwise without abnormality on direct and retroflexion views. Estimated Blood Loss: Estimated blood loss: none. Impression: - Three 4 to 9 mm polyps in the mid descendingcolon, at the splenic flexure, in the transverse colon andin the mid transverse colon, removed with a hot snare. Resected and retrieved. - The entire examined colon is normal. Biopsied. - The examination was otherwise normal on directand retroflexion views. Recommendation: - Discharge patient to home. - Patient has a contact number available for emergencies. The signs and symptoms of potential delayed complications were discussed with thepatient. Return to normal activities tomorrow. Written discharge instructions were provided to thepatient. - Repeat colonoscopy in 3 years for surveillancebased on pathology results. - Return to my office in 1 week. Procedure Code(s): --- Professional --- 98357, Colonoscopy, flexible; with removal of tumor(s), polyp(s), or other lesion(s) by snare technique 75929, 59, Colonoscopy, flexible; with biopsy,single or multiple Diagnosis Code(s): --- Professional --- K63.5, Polyp of colon K52.9, Noninfective gastroenteritis and colitis, unspecified CPT copyright 2019 [employer]. All rights reserved. The codes documented in this report are preliminary and upon database administration project manager reviewmay be revised to meet current compliance requirements. DO Etienne Burt DO 11/06/2020 9:23:25 AM Number of Addenda: 0 Note Initiated On: 11/06/2020 8:51 AM Etienne Rosas DO GI PROCEDURE ORDERABLES Fin al Result PM CARDIOVASCULAR from Last 3 Months or Most Recently Relevant to Health Maintenance Insurance [employer] Member Subscriber Plan / Payer (Ef fective 2021-Present) Name:Jamar Joshua Relation to Subscriber:Self Name:Jamar Joshua Payer ID:Not on file Type:Not on file Address: [facility] [address] [id number] Care Teams Handle Sander Operator Relationship Specialty Start Date End Date Hever Caal DO [address] [id number] PCP - General Internal Medicine 02/01/23
--- OUTSIDE RECORDS SUMMARY | 2025-01-10 08:57 | XMS_ITS | Encounter Summary ---
Author Organization [facility] [facility] tem Address [id number] [address] [place] [address] Care Team Providers Care Clinical Education Manager Name Role Phone Hever Caal DO Primary Care Provider [phone] Reason for Referral * Medication Prior Authorization - Denied Specialty Diagnoses / Procedures Referred By Contvandana t Referred To Contact Diagnoses Type 2 diabetes mellitus without complication, without long-term current use of insulin ([facility]) Hever Caal DO [address] [place] [address] Phone: tel: fax: Referral ID Status Reason Start Date Expiration Date Visits Re quested Visits Authorized [id number] Denied 1 1 Encounter Details Date Type Department Care Team (Late st Contact Info) Description 05/08/2023 Orders Only [facility] Internal Medicine - Family Medicine [address] [place] [address] Hever Caal DO [address] [place] [address] Type 2 diabetes mellitus without complication, without long-term current use of insulin ([facility]) Social History Tobacco Use Types Packs/Day Years Used Date Smoking Tobacco: Never Smokeless Tobacco: Never Alcohol Use Standard Drinks/Week Comments Yes 0 (1 standard drink = 0.6 oz pur e alcohol) socially PHQ-2 Answer Date Recorded Total Score 0 05/03/2023 Childcare Answer Date Recorded Childcare Unknown 04/04/2020 [...] Internal Medicine - Family Medicine [address] [place] [address] Hever Caal DO [address] [place] [address] 06/11/2025 1:15 PM EST Office Visit [facility] [address] [place] [address] [place] [address] Alfonzo Lucero MD [address] [place] [address] documented as of this encounter Visit Diagnoses Diagnosis Type 2 diabetes mellitus without complication, without long-term current use of insulin ([facility]) documented in this encounter Additional Health Concerns Assessment Noted Time PHQ-9 Depression Total Score: 0 05/03/20 11:55 AM EDT documented as of this encounter Care Teams Clinical Education Manager Relationship Specialty Start Date End Date Hever Caal DO [address] [place] [address] PCP - General Internal Medicine 02/01/23 documented as of this encounter
--- OUTSIDE RECORDS SUMMARY | 2025-01-10 08:57 | XMS_ITS | Encounter Summary ---
Author Organization [employer] tem Address [id number] [address] [place] [address] Care Team Providers Care Warp Placer Name Role Phone Hever Caal DO Primary Care Provider [phone] Encounter Details Date Type Department Care Team ([facility] Contact Info) Description 10/25/2024 [facility] [address] [place] [address] Ref Prov, [place] [address] Social History Tobacco Use Types Packs/Day Years Used Date Smoking Tobacco: Never Smokeless Tobacco: Never Alcohol Use Standard Drinks/Week Comments Yes 0 (1 standard drink = 0.6 oz pur e alcohol) socially PHQ-2 Answer Date Recorded Total Score 0 07/31/2024 Childcare Answer Date Recorded Childcare Unknown 04/04/2020 Employment Answer Date Recorded Employment Unknown 04/04/2020 Hunger Screening Answer Date Recorded Within the past 12 months we worried whether our food would run out before we got money to buy more. Never True 07/31/2024 Within the past 12 months th e food we bought just didn't last and we didn't have money to get more. Never True 07/31/2024 Purpose - Life Answer Date Recorded Purpose and direction in life Unknown Sex and Gender Information Value Date Recorded Sex Assigned at Not on file Legal Sex Male 11:21 AM EDT Gender Identity Not on file Sexual Orientation Not on file documented as of this encounter Plan of Treatment Upcoming Encounters Date Type Department Care Team ([facility] Contact Info) Description 04/05/2025 10:15 AM EDT Office Visit [facility] Internal Medicine - Family Medicine [address] [place] [address] Hever Caal DO [address] [place] [address] 06/11/2025 1:15 PM EST Office Visit [facility] [address] [place] [address] [place] [address] Alfonzo Lucero MD [address] [place] [address] documented as of this encounter Procedures Procedure Name Priority Date/Time Associated Diagnosis Comments EXTERNAL HADOOP ANALYST, CGM SYS Routine 10/17/2024 5:49 PM EDT documented in this encounter Results * EXTERNAL HADOOP ANALYST, CGM SYS (10/17/2024 5:49 PM EDT) us Not In System Ref Prov [facility] Final Result MANUALLY TRANSCRIBED RESULTS documented in this encounter Visit Diagnoses Not on filedocumented in this encounter Additional Health Concerns Assessment Noted Time PHQ-9 Depression Total Score: 0 07/31/19 25 3:34 PM EST A Body Mass Index follow-up plan has been documented for the patient 01/26/2024 3:52 PM EDT documented as of this encounter Care Teams Warp Placer Relationship Specialty Start Date End Date Hever Caal DO [address] [place] [address] PCP - General Internal Medicine 02/01/23 documented as of this encounter
--- OUTSIDE RECORDS SUMMARY | 2025-01-10 08:57 | XMS_ITS | Encounter Summary ---
Author Organization [employer] tem Address [id number] [address] [place] [address] Care Team Providers Care Road Manager Name Role Phone Hever Caal DO Primary Care Provider [phone] Encounter Details Date Type Department Care Team (Late Contact Info) Description 04/20/2023 Telephone [facility] Internal Medicine - Family Medicine [address] [place] [phone] Hever Caal DO [address] [place] [address] Social History Tobacco Use Types Packs/Day Years [...] encounter Miscellaneous Notes * Telephone Encounter - Saloni Rodriguez - 04/20/2023 4:58 PM EDT [facility] Thanks documented in this encounter Plan of Treatment Upcoming Encounters Date Type Department Care Team (Late Contact Info) Description 04/05/2025 10:15 AM EDT Office Visit [facility] Internal Medicine - Family Medicine [address] [place] [address] Hever Caal DO [address] [place] [address] 06/11/2025 1:15 PM EST Office Visit [facility] [address] [place] [address] A [facility] [place] [address] Alfonzo Lucero MD [address] [place] [address] documented as of this encounter Visit Diagnoses Not on filedocumented in this encounter Additional Health Concerns Assessment Noted Time PHQ-9 Depression Total Score: 0 04/06/20 1:29 PM EDT documented as of this encounter Care Teams Road Manager Relationship Specialty Start Date End Date Hever Caal DO [address] [place] [address] PCP - General Internal Medicine 02/01/23 documented as of this encounter
--- OUTSIDE RECORDS SUMMARY | 2025-01-10 08:57 | XMS_ITS | Encounter Summary ---
Author Organization [employer] Address [id number] [address] [place] [address] Care Team Providers Care Oil Recovery Unit Operator Name Role Phone Hever Caal DO Primary Care Provider [phone] Encounter Details Date Type Department Care Team (Late st Contact Info) Description 02/21/2023 Telephone [facility] Internal Medicine - Family Medicine [address] [place] [phone] Claudette De La Rosa CMA Social History [...] - Claudette De La Rosa CMA - 02/21/2023 11:59 AM EDT I got a message from Ashley that they had to change this gentleman's Stress Test because of his weight. Your part is now going to be done on Mar 11 at 8:00am * Telephone Encounter - Hever Caal DO - 02/21/2023 11:59 AM EDT Message noted. I believe this changed again documented in this encounter Plan of Treatment Upcoming Encounters Date Type Department Care Team (Late st Contact Info) Description 04/05/2025 10:15 AM EDT Office Visit [facility] Internal Medicine - Family Medicine [address] [place] [address] Hever Caal DO [address] [place] [address] 06/11/2025 1:15 PM EST Office Visit [facility] [address] [place] [address] [place] [address] Alfonzo Lucero MD [address] [place] [address] documented as of this encounter Visit Diagnoses Not on filedocumented in this encounter Additional Health Concerns Assessment Noted Time PHQ-9 Depression Total Score: 0 02/17/20 2:45 PM EDT documented as of this encounter Care Teams Oil Recovery Unit Operator Relationship Specialty Start Date End Date Hever Caal DO [address] [place] [address] PCP - General Internal Medicine 02/01/23 documented as of this encounter
--- OUTSIDE RECORDS SUMMARY | 2025-01-10 08:57 | XMS_ITS | Encounter Summary ---
Author Organization [employer] Address [id number] [address] [place] [address] Care Team Providers Care Acid Plant Helper Name Role Phone Hever Caal DO Primary Care Provider [phone] Encounter Details Date Type Department Care Team (Late st Contact Info) Description 02/17/2023 Telephone [facility] Internal Medicine - Family Medicine [address] [place] [phone] Claudette De La Rosa CMA Social History [...] - Claudette De La Rosa CMA - 02/17/2023 8:50 AM EDT This patient is scheduled for his Nuc Stress Test on Feb 22 at 10:30am and your time is 12:00pm. Nuclear is down for PM so is when he can be done. * Telephone Encounter - Hever Caal DO - 02/17/2023 8:50 AM EDT Message noted. This has been changed documented in this encounter Plan of Treatment Upcoming Encounters Date Type Department Care Team (Late st Contact Info) Description 04/05/2025 10:15 AM EDT Office Visit [facility] Internal Medicine - Family Medicine [address] [place] [address] Hever Caal DO [address] [place] [address] 06/11/2025 1:15 PM EST Office Visit [facility] [address] [place] [address] [address] [facility] [place] [address] Alfonzo Lucero MD [address] [place] [address] documented as of this encounter Visit Diagnoses Not on filedocumented in this encounter Additional Health Concerns Assessment Noted Time PHQ-9 Depression Total Score: 0 02/17/20 2:45 PM EDT documented as of this encounter Care Teams Acid Plant Helper Relationship Specialty Start Date End Date Hever Caal DO [address] [place] [address] PCP - General Internal Medicine 02/01/23 documented as of this encounter
--- OUTSIDE RECORDS SUMMARY | 2025-01-10 08:57 | XMS_ITS | Encounter Summary ---
Author Organization [facility] Address [id number] [address] [place] [address] Care Team Providers Care Interventional Radiology Rn Name Role Phone Hever Caal DO Primary Care Provider Reason for Visit * Reason Onset Date Comments Med Refill 09/14/2023 Encounter Details Date Type Department Care Team ([facility] Contact Info) Description 09/14/2023 Refill [facility] Internal Medicine - Family Medicine [address] [place] [address] Rosemary Chacon CMA Type 2 diabetes mellitus without complication, without long-term current use of insulin ([facility]) Social History Tobacco Use Types Packs/Day Years [...] Internal Medicine - Family Medicine [address] [place] [address] Hever Caal DO [address] [place] [address] 06/11/2025 1:15 PM EST Office Visit [facility] [address] [place] [address] [place] [address] Alfonzo Lucero MD [facility] [place] [address] documented as of this encounter Visit Diagnoses Diagnosis Type 2 diabetes mellitus without complication, without long-term current use of insulin ([facility]) documented in this encounter Additional Health Concerns Assessment Noted Time PHQ-9 Depression Total Score: 0 08/02/19 10:56 AM EST documented as of this encounter Care Teams Interventional Radiology Rn Relationship Specialty Start Date End Date Hever Caal DO [address] [place] [address] PCP - General Internal Medicine 02/01/23 documented as of this encounter
--- OUTSIDE RECORDS SUMMARY | 2025-01-10 08:57 | XMS_ITS | Encounter Summary ---
Author Organization [employer] Address [id number] [address] [place] [address] Care Team Providers Care Assembly Machine Set Up Mechanic Name Role Phone Hever Caal DO Primary Care Provider [phone] Encounter Details Date Type Department Care Team (Late Contact Info) Description 04/25/2023 Telephone [facility] Internal Medicine - Family Medicine [address] [place] [phone] Kayleigh Alejandro MA Social History Tobacco Use Types Packs/Day Years [...] Telephone Encounter - Kayleigh Alejandro MA - 04/25/2023 3:57 PM EDT Critical glucose 495 Stack lab call (ailin) documented in this encounter Plan of Treatment Upcoming Encounters Date Type Department Care Team ([facility] Contact Info) Description 04/05/2025 10:15 AM EDT Office Visit [facility] Internal Medicine - Family Medicine [address] [place] [address] Hever Caal DO [address] [place] [address] 06/11/2025 1:15 PM EST Office Visit [facility] [address] [place] [address] [place] [facility] [place] [phone] Alfonzo Lucero MD [address] [place] [address] documented as of this encounter Visit Diagnoses Not on filedocumented in this encounter Additional Health Concerns Assessment Noted Time PHQ-9 Depression Total Score: 0 04/06/20 23 1:29 PM EDT documented as of this encounter Care Teams Assembly Machine Set Up Mechanic Relationship Specialty Start Date End Date Hever Caal DO [address] [place] [address] PCP - General Internal Medicine 02/01/23 documented as of this encounter
--- OUTSIDE RECORDS SUMMARY | 2025-01-10 08:57 | XMS_ITS | Encounter Summary ---
Author Organization [facility] Address [facility] [id number] [address] [place] [address] Care Team Providers Care Legal Officer Name Role Phone Hever Caal DO Primary Care Provider [phone] Encounter Details Date Type Department Care Team (Late st Contact Info) Description 11/03/2023 Orders Only [facility] Internal Medicine - Family Medicine [address] [place] [phone] Hever Caal DO [address] [place] [address] Type 2 diabetes mellitus without complication, without long-term current use of insulin ([facility]); Exocrine pancreatic insufficiency Social History Tobacco Use Types Packs/Day Years Used Date Smoking Tobacco: Never Smokeless Tobacco: Never Alcohol Use Standard Drinks/Week Comments Yes 0 (1 standard drink = 0.6 oz pur e alcohol) socially PHQ-2 Answer Date Recorded Total Score 0 11/03/2023 Childcare Answer Date Recorded Childcare Unknown 04/04/2020 Employment Answer Date Recorded Employment Unknown 04/04/2020 Hunger Screening Answer Date Recorded Within the past 12 months we worried whether our food would run out before we got money to buy more. Never True 11/03/2023 Within the past 12 months th e food we bought just didn't last and we didn't have money to get more. Never True 11/03/2023 Purpose - Life Answer Date Recorded Purpose [...] Internal Medicine - Family Medicine [address] [place] [address] Hever Caal DO [address] [place] [address] 06/11/2025 1:15 PM EST Office Visit [facility] [address] [place] [address] Alfonzo Lucero MD [address] [place] [address] documented as of this encounter Visit Diagnoses Diagnosis Type 2 diabetes mellitus without complication, without long-term current use of insulin ([facility]) Exocrine pancreatic insufficiency Other specified disease of pancreas documented in this encounter Additional Health Concerns Assessment Noted Time PHQ-9 Depression Total Score: 0 11/03/19 24 10:59 AM EDT documented as of this encounter Care Teams Legal Officer Relationship Specialty Start Date End Date Hever Caal DO [address] [place] [address] PCP - General Internal Medicine 02/01/23 documented as of this encounter
--- OUTSIDE RECORDS SUMMARY | 2025-01-10 08:57 | XMS_ITS | Encounter Summary ---
Author Organization [employer] [facility] tem Address [facility] [id number] [address] [place] [address] Care Team Providers Care Powerhouse Electrician Name Role Phone Hever Caal DO Primary Care Provider [phone] Encounter Details Date Type Department Care Team ([facility] Contact Info) Description 04/20/2023 Orders Only [facility] Internal [facility] - Family Medicine [address] [place] [phone] Hever Caal DO [address] [id number] Type 2 diabetes mellitus without complication, without long-term current use of insulin ([facility]) (Primary Dx) Social History Tobacco Use Types [...] Upcoming Encounters Date Type Department Care Team ([facility] Contact Info) Description 04/05/2025 10:15 AM EDT [facility] [address] [place] [phone] Hever Caal, DO [address] [place] [address] 06/11/2025 1:15 PM EST Office Visit [facility] [address] [place] [address] Alfonzo Lucero MD [address] [place] [address] documented as of this encounter Results * (ABNORMAL) Comprehensive metabolic panel (04/25/2023 12:55 PM EDT) Sodium 129(L) 134 - 146 mmol/L 04/25/2023 3:50 PM EDT [facility] Potassium, Bld 4.1 3.5 - 5.0 mmol/L 04/25/2023 3:50 PM EDT [facility] Chloride 94(L) 98 - 109 mmol/L 04/25/2023 3:50 PM EDT [facility] CO2 25 22 - 32 mmol/L 04/25/2023 3:50 PM EDT [facility] Anion gap 10 5 - 15 mmol/L 04/25/2023 3:50 PM EDT [facility] BUN 15 5 - 23 mg/dL 04/25/2023 3:50 PM EDT [facility] Creatinine 1.06 0.60 - 1.30 mg/dL 04/25/2023 3:50 PM EDT [facility] Comment:METHOD TRACEABLE TO IDMS STANDARD Glucose 495(HH) 65 - 99 mg/dL 04/25/2023 3:50 PM EDT [facility] Calcium 9.0 8.5 - 10.5 mg/dL 04/25/2023 3:50 PM EDT [facility] Total Protein 6.7 6.0 - 8.0 g/dL 04/25/2023 3:50 PM EDT [facility] Albumin 3.7 3.2 - 5.3 g/dL 04/25/2023 3:50 PM EDT [facility] Alkaline Phosphatase 111 39 - 130 U/L 04/25/2023 3:50 PM EDT [facility] AST 23 0 - 41 U/L 04/25/2023 3:50 PM EDT [facility] ALT 26 0 - 40 U/L 04/25/2023 3:50 PM EDT [facility] Total bilirubin 0.2(L) 0.3 - 1.2 mg/dL 04/25/2023 3:50 PM EDT [facility] eGFR (CKD-EPI)non-rac e dependent 84 >59 ml/min/1.7 3sq.m 04/25/2023 3:50 PM EDT [facility] Comment: Reported eGFR is based on the CKD-EPI 2020 equation that does not use a race coefficient. MISC 04/25/2023 12:5 5 PM EDT 04/25/2023 12:56 PM EDT Comment:Plasma~Miscellaneous Hever Caal DO LAB BLOOD ORDERABLES Edited Resu lt - Final [facility] [address] [place] [address] * Microalbumin - Albumin: Creatinine Urine Ratio (04/25/2023 12:55 PM EDT) Microalbumin urine <0.7 0.0 - 1.9 mg/dL 04/25/2023 3:36 PM EDT [facility] Urine creat 29.10 mg/dL 04/25/2023 3:36 PM EDT [facility] Alb/creat ratio NOT CALCULATED 0.0 - 30.0 mg/g creat 04/25/2023 3:36 PM EDT [facility] Comment: Result for Albumin/Creatinine Ratio cannot be reliably calculated because urine albumin and or urine creatinine is below the detection limit of the assay. Urine / Unknown 04/25/2023 1 2:55 PM EDT 04/25/2023 12:57 PM EDT us Hever Caal DO URINE ORDERABLES Final Result [facility] * (ABNORMAL) Hemoglobin A1c (04/25/2023 12:55 PM EDT) Hemoglobin A1C 13.0(H) 4.4 - 5.6 % 04/25/2023 3:34 PM EDT [facility] Comment: NOTE ADA Guidelines Result HgbA1c Normal : less than 5.7 % Prediabetes : 5.7 % to 6.4 % Diabetes : > 6.4 % Use with caution in patients with abnormal hemoglobin variants as the half-life of red blood cells and in vivo glycation rates are affected. Average glucose 326 mg/dL 3:34 PM EDT [facility] PLASMA 04/25/2023 12:5 5 PM EDT 04/25/2023 12:56 PM EDT Hever Caal DO LAB BLOOD ORDERABLES Final Resul t Performing Organization Address City/[facility]/ZIP Co de Phone Number GERBER [facility] [address] [place] [address] documented in this encounter Visit Diagnoses Diagnosis Type 2 diabetes mellitus without complication, without long-term current use of insulin ([facility] Primary documented in this encounter Additional Health Concerns Assessment Noted Time PHQ-9 Depression Total Score: 0 04/06/20 23 1:29 PM EDT documented as of this encounter Care Teams Powerhouse Electrician Relationship Specialty Start Date End Date Hever Caal DO [address] [place] [address] PCP - General Internal Medicine 02/01/23 documented as of this encounter
--- OUTSIDE RECORDS SUMMARY | 2025-01-10 08:57 | XMS_ITS | Clinical Summary ---
Author Organization [facility] Address [address] [place] [address] Care Team Providers Care Forensic Accountant Name Role Phone Hever Caal MD Primary Care Provider [phone] Allergies Active Allergy Reactions Criticality Noted Date Comments Bimekizumab-Bkzx Rash Low 09/10/2024 Guselkumab Diarrhea 09/10/2024 Medications clobetasol (Temovate) 0.05 % creamIndicatio ns:Other psoriasis Apply to affected areas twice daily 60 g 3 Active ARIPiprazole (Abilify) 10 MG tablet 1 (one) time each day at the same time. Active atorvastatin (Lipitor) 40 MG tablet Take 40 mg by mouth in the morning. 3 Active calcium carbonate 1500 (600 Ca) MG tablet every 12 (twelve) hours. Active clonazePAM (KlonoPIN) 0.5 MG tablet Take 0.5 mg by mouth 3 (three) times a day as needed. 3 Active diphenoxylate- atropine (Lomotil) 2.5-0.025 MG tablet 3 Active finasteride (Proscar) 5 MG tablet 3 Active ibuprofen 800 MG tablet Take 800 mg by mouth every 6 (six) hours if needed. Active imipramine (Tofranil) 25 MG tablet 3 Active magnesium 250 MG tablet every 12 (twelve) hours. Active metaxalone (Skelaxin) 800 MG tablet Take 800 mg by mouth in the morning and 800 mg at noon and 800 mg in the evening. 3 Active mirabegron ER (Myrbetriq) 50 MG 24 hr tablet Take 50 mg by mouth in the morning. 3 Active Creon 52984-13272 units capsule take 1 capsule by mouth every morning then 1 capsule AT 12PM then... (REFER TO PRESCRIPTION NOTES). 3 Active Potassium Gluconate 2.5 MEQ tablet Take 99 mg by mouth in the morning. Active Rybelsus 7 MG tablet Take 7 mg by mouth in the morning. 3 Active solifenacin (VESIcare) 10 MG tablet Take 10 mg by mouth in the morning. 3 Active tamsulosin (Flomax) 0.4 MG 24 hr capsule 1 capsule 1 (one) time each day at the same time. Active albuterol HFA 90 mcg/act inhaler Inhale 2 puffs every 6 (six) hours if needed 4 Active Vitamin D High Potency 25 MCG (1000 UT) capsule Take 25 mcg by mouth in the morning. Active Dextromethorph an-Pyrilamine 7.5-7.5 MG/5ML liquid Take 5 mL by mouth every 8 (eight) hours if needed 4 Active Soliqua 100-33 UNT-MCG/ML pen Inject 60 Units under the skin in the morning. Inject with meals. 4 Active Soliqua 100-33 UNT-MCG/ML pen 4 Active Droplet Pen [place] 32G X 4 MM [facility] use 1 PEN NEEDLE to inject MEDICATION subcutaneously every morning 4 Active lisinopril 5 MG tablet Take 5 mg by mouth in the morning. 3 Active ofloxacin (Floxin) 0.3 % otic solution INSTILL 5 DROPS INTO LEFT EAR TWICE A DAY - MORNING AND BEDTIME FOR 7 DAYS 4 Active sertraline (Zoloft) 50 MG tablet Take 50 mg by mouth in the morning. 4 Active Vibegron 75 MG tablet Take 75 mg by mouth in the morning. 4 Active cyanocobalamin (Vitamin B-12) 1000 MCG tablet Take 1,000 mcg by mouth in the morning. Active Bimzelx 160 MG/ML solution auto-injectorI ndications:Micaela que psoriasis Inject 320 mg under the skin every 28 (twenty-eight) days 2 mL 11 4 Active Fiasp FlexTouch 100 UNIT/ML injection If sugar 0-150 0 units;151-200 8 units; 201-250 15 units; 251-300 20 units; more than 300 25 unit; Max 75 units per day 4 Active montelukast (Singulair) 10 MG tablet Take 1 tablet by mouth at bedtime 4 Active terbinafine (LamISIL AT) 1 % creamIndicatio ns:Tinea corporis Apply to affected sikh once daily 42 g 2 4 Active Skyrizi Pen 150 MG/ML solution auto-injectorI ndications:Micaela que Psoriasis INJECT 150 MG (CONTENTS OF ONE PEN) UNDER THE SKIN EVERY 12 WEEKS 1 mL 4 4 Active Tapinarof (Vtama) 1 % creamIndicatio ns:Psoriasis vulgaris,High risk medication use Apply 1 g topically Daily Apply 2g to the trunk, arms, and legs, once daily, 30 day supply 60 g 11 5 025 Active Active Problems Problem Noted Date Diagnosed Date Chronic maxillary sinusitis 04/20/2023 Encounters Date Type Department Care Team Description 01/09/2025 11:30 AM EDT Office Visit [facility] [address] [place] [address] Mary Brunson MD Psoriasis vulgaris (Primary Dx); High risk medication use 01/09/2025 Telephone [facility] [address] [place] [address] Cierra Owens LPN 01/09/2025 Bamboo flowsheet [facility] [address] [place] [address] Mary Brunson MD 01/09/2025 Travel from Last 3 Months Family History Medical History Relation Name Comments Diabetes Father Heart disease Father Stroke Father Breast cancer Mother Melanoma Neg Hx Relation Name Status Comments Father Alive Mother Social History Tobacco Use Types Packs/Day Years Used Date Smoking Tobacco: Never Smokeless Tobacco: Never Tobacco Cessation:Counseling Given: Not Answered Alcohol Use Standard Drinks/Week Comments Not Currently 0 (1 standard drink = 0.6 oz pur e alcohol) Sex and Gender Information Value Date Recorded Sex Assigned at Not on file Legal Sex Male 7:22 PM EDT Gender Identity Not on file Sexual Orientation Not on file Last Filed Vital Signs Vital Sign Reading Time Taken Comments Blood Pressure 127/62 03/13/2024 11:16 AM EDT Pulse - - Temperature 36.6 C (97.8 F) 01/19/2024 3:09 PM EDT Respiratory Rate - - Oxygen Saturation - - Inhaled Oxygen Concentration - - Weight 136 kg (300 lb) 01/09/2025 11:33 AM EDT Height 177.8 cm (5' 10 ) 03/13/2024 11:16 AM EDT Body Mass Index 43.05 03/13/2024 11:16 AM EDT Plan of Treatment Upcoming Encounters Date Type Department Care Team (Late st Contact Info) Description 01/16/2025 10:50 AM EDT Office Visit [facility] [address] [facility] [address] [place] [address] Prerna Salazar MD [address] [facility] [address] [place] [address] 05/14/2025 11:25 AM EST Office Visit [facility] [address] [place] [address] Mary Brunson MD [address] [place] [address] [place] [address] Health Maintenance Due Date Last Done Comments CT Colonography 1970 Colonoscopy 1970 Colorectal Cancer Screening 1970 FIT-DNA 1970 FIT 1970 FOBT 1970 Sigmoidoscopy 1970 Influenza Vaccine (#1) 2025 5, 06/24/2023, 04/28/2022, Additional history exists Insurance [employer] Care Teams Forensic Accountant Relationship Specialty Start Date End Date Hever Caal MD [address] [place] [address] PCP - General Internal Medicine 01/08/25
--- OUTSIDE RECORDS SUMMARY | 2025-01-10 08:57 | XMS_ITS | Encounter Summary ---
Author Organization [employer] tem Address [id number] [address] [place] [address] Care Team Providers Care Ortho Rn Name Role Phone Hever Caal DO Primary Care Provider [phone] Encounter Details Date Type Department Care Team ([facility] Contact Info) Description 09/28/2022 Telephone [facility] [address] [place] [address] [facility] [address] Bin York CMA Social History Tobacco Use Types Packs/Day [...] PM EST documented as of this encounter Plan of Treatment Upcoming Encounters Date Type Department Care Team ([facility] Contact Info) Description 04/05/2025 10:15 AM EDT Office Visit [facility] Internal Medicine - Family Medicine [address] [place] [address] Hever Caal DO [address] [place] [address] 06/11/2025 1:15 PM EST Office Visit [facility] [address] [place] [address] [address] [facility] [phone] Alfonzo Lucero MD [address] [place] [address] documented as of this encounter Visit Diagnoses Not on filedocumented in this encounter Care Teams Ortho Rn Relationship Specialty Start Date End Date Hever Caal DO [address] [place] [address] PCP - General Internal Medicine 02/01/23 documented as of this encounter
--- OUTSIDE RECORDS SUMMARY | 2025-01-10 08:57 | XMS_ITS | Encounter Summary ---
Author Organization [facility] tem Address [id number] [address] [place] [address] Care Team Providers Care Mink Farmer Name Role Phone Hever Caal DO Primary Care Provider [phone] Reason for Referral * Medication Prior Authorization - Authorized Specialty Diagnoses / Procedures Referred By Contac t Referred To Contact Diagnoses Type 2 diabetes mellitus with hyperglycemia, with long-term current use of insulin ([facility]) Hever Caal DO [address] [place] [address] Phone: tel: fax: Referral ID Status Reason Start Date Expiration Date V isits Requested Visits Authorized [id number] Authorized 12/26/2024 12/26/2025 1 1 Encounter Details Date Type Department Care Team (Late st Contact Info) Description 12/25/2024 Orders Only [facility] Internal Medicine - Family Medicine [address] [place] [address] Hever Caal DO [address] [place] [address] Type 2 diabetes mellitus with hyperglycemia, with long-term current use of insulin ([facility]) (Primary Dx) Social History Tobacco Use Types [...] Internal Medicine - Family Medicine [address] [place] [address] Hever Caal DO [address] [place] [address] 06/11/2025 1:15 PM EST Office Visit [facility] [address] [place] [phone] Alfonzo Lucero MD [address] [place] [place] [address] documented as of this encounter Visit Diagnoses Diagnosis Type 2 diabetes mellitus with hyperglycemia, with long-term current use of insulin ([facility])- Primary documented in this encounter Additional Health Concerns Assessment Noted Time PHQ-9 Depression Total Score: 0 12/22/19 25 11:02 AM EDT A Body Mass Index follow-up plan has been documented for the patient 01/26/2024 3:52 PM EDT documented as of this encounter Care Teams Mink Farmer Relationship Specialty Start Date End Date Hever Caal DO [address] [place] [address] PCP - General Internal Medicine 02/01/23 documented as of this encounter
--- OUTSIDE RECORDS SUMMARY | 2025-01-10 08:57 | XMS_ITS | Encounter Summary ---
Author Organization [facility] Address [id number] [address] [place] [address] Care Team Providers Care Maintenance Data Analyst Name Role Phone Hever Caal DO Primary Care Provider [phone] Encounter Details Date Type Department Care Team ([facility] Contact Info) Description 11/08/2023 Orders Only [facility] Internal Medicine - Family Medicine [address] [place] [phone] Hever Caal DO [address] [place] [address] Exocrine pancreatic insufficiency Social History Tobacco Use Types Packs/Day Years Used Date Smoking Tobacco: Never Smokeless Tobacco: Never Alcohol Use Standard Drinks/Week Comments Yes 0 (1 standard drink = 0.6 oz pur e alcohol) socially PHQ-2 Answer Date Recorded Total Score 0 11/11/2023 Childcare Answer Date Recorded Childcare Unknown 04/04/2020 Employment Answer Date Recorded Employment Unknown 04/04/2020 Hunger Screening Answer Date Recorded Within the past 12 months we worried whether our food would run out before we got money to buy more. Never True 11/11/2023 Within the past 12 months th e food we bought just didn't last and we didn't have money to get more. Never True 11/11/2023 Purpose - Life Answer Date Recorded Purpose and direction in life Unknown Sex and Gender Information Value Date Recorded Sex Assigned at Not on file Legal Sex Male 11:21 AM EDT Gender Identity Not on file Sexual Orientation Not on file documented as of this encounter Plan of Treatment Upcoming Encounters Date Type Department Care Team ([facility] Contact Info) Description 04/05/2025 10:15 AM EDT Office Visit [facility] - Family Medicine [address] [place] [address] Hever Caal DO [address] [place] [address] 06/11/2025 1:15 PM EST Office Visit [facility] [address] [place] [address] [place] [phone] Alfonzo Lucero MD [address] [place] [address] documented as of this encounter Visit Diagnoses Diagnosis Exocrine pancreatic insufficiency Other specified disease of pancreas documented in this encounter Additional Health Concerns Assessment Noted Time PHQ-9 Depression Total Score: 0 11/03/19 24 10:59 AM EDT documented as of this encounter Care Teams Maintenance Data Analyst Relationship Specialty Start Date End Date Hever Caal DO [address] [place] [address] PCP - General Internal Medicine 02/01/23 documented as of this encounter
--- OUTSIDE RECORDS SUMMARY | 2025-01-10 08:57 | XMS_ITS | Encounter Summary ---
Author Organization [employer] tem Address [id number] [address] [place] [address] Care Team Providers Care Paper Conservator Name Role Phone Hever Caal Primary Care Provider [phone] Encounter Details Date Type Department Care Team (Late st Contact Info) Description 12/31/2024 Telephone [facility] - Family Medicine [address] [place] [phone] Alverto White CMA Social History Tobacco Use [...] Telephone Encounter - Alverto White CMA - 12/31/2024 11:55 AM EDT Pt called and was wondering if he is suppose to be taking the OZEMPIC first or the MOUNJARO? * Telephone Encounter - Hever Caal DO - 12/31/2024 11:55 AM EDT Message noted. I did not know they sent the Mounjaro. Insurance does cover the Ozempic Just use the Ozempic as prescribed at this time. But, do not get rid of the Mounjaro, he may be able to use it at sometime in the future * Telephone Encounter - Alverto White CMA - 12/31/2024 11:55 AM EDT I called and read your note. He verbally states he understands. documented in this encounter Plan of Treatment Upcoming Encounters Date Type Department Care Team (Late st Contact Info) Description 04/05/2025 10:15 AM EDT Office Visit [facility] - Family Medicine [address] [place] [address] Hever Caal DO [address] [place] [address] 06/11/2025 1:15 PM EST Office Visit [facility] [address] [place] [address] [address] [facility] [place] [phone] Alfonzo Lucero MD [facility] [place] [address] documented as of this encounter Visit Diagnoses Not on filedocumented in this encounter Additional Health Concerns Assessment Noted Time PHQ-9 Depression Total Score: 0 12/22/19 25 11:02 AM EDT A Body Mass Index follow-up plan has been documented for the patient 01/26/2024 3:52 PM EDT documented as of this encounter Care Teams Paper Conservator Relationship Specialty Start Date End Date Hever Caal DO [address] [place] [address] PCP - General Internal Medicine 02/01/23 documented as of this encounter
--- OUTSIDE RECORDS SUMMARY | 2025-01-10 08:58 | XMS_ITS | Encounter Summary ---
Author Organization [facility] Address [facility] [place]-[id number] [address] [place] [address] Care Team Providers Care Strategic Development Manager Name Role Phone Hever Caal DO Primary Care Provider [phone] Encounter Details Date Type Department Care Team (Late st Contact Info) Description 03/14/2024 Orders Only [facility] Medicine - Family Medicine [address] [place] [phone] Hever Caal DO [address] [place] [address] Type 2 diabetes mellitus without complication, without long-term current use of insulin ([facility]) Social History Tobacco Use Types Packs/Day [...] Internal Medicine - Family Medicine [address] [place] [address] Hever Caal DO [address] [place] [address] 06/11/2025 1:15 PM EST Office Visit [facility] [address] [place] [address] [address] [facility] [place] [phone] Alfonzo Lucero MD [address] [place] [address] documented as of this encounter Visit Diagnoses Diagnosis Type 2 diabetes mellitus without complication, without long-term current use of insulin ([facility]) documented in this encounter Additional Health Concerns Assessment Noted Time PHQ-9 Depression Total Score: 0 02/07/20 24 11:27 AM EDT A Body Mass Index follow-up plan has been documented for the patient 01/26/2024 3:52 PM EDT documented as of this encounter Care Teams Strategic Development Manager Relationship Specialty Start Date End Date Hever Caal DO [address] [place] [address] PCP - General Internal Medicine 02/01/23 documented as of this encounter
--- OUTSIDE RECORDS SUMMARY | 2025-01-10 08:58 | XMS_ITS | Encounter Summary ---
Author Organization [employer] Address [facility] [id number] [address] [place] [address] Care Team Providers Care Linen Room Worker Name Role Phone Hever Caal DO Primary Care Provider [phone] Encounter Details Date Type Department Care Team ([facility] Contact Info) Description 02/03/2023 Orders Only [facility] - Family Medicine [address] [place] [phone] External, Scanning Provider Social History Tobacco Use [...] Upcoming Encounters Date Type Department Care Team ([facility] Contact Info) Description 04/05/2025 10:15 AM EDT Office Visit [facility] - Family Medicine [address] [place] [phone] Hever Caal DO [address] [place] [address] 06/11/2025 1:15 PM EST Office Visit [facility] [address] [place] [address] Alfonzo Lucero MD [address] [place] [address] documented as of this encounter Procedures Procedure Name Priority Date/Time Associated Diagnosis Comments ECG 12-LEAD Routine 01/21/2023 4:12 PM EDT documented in this encounter Results * ECG 12 lead (01/21/2023 4:12 PM EDT) us Scanning Provider External ECG ORDERABLES Edite d Result - Final MANUALLY TRANSCRIBED RESULTS documented in this encounter Visit Diagnoses Not on filedocumented in this encounter Additional Health Concerns Assessment Noted Time PHQ-9 Depression Total Score: 0 02/04/20 23 12:17 PM EDT documented as of this encounter Care Teams Linen Room Worker Relationship Specialty Start Date End Date Hever Caal DO [address] [place] [address] PCP - General Internal Medicine 02/01/23 documented as of this encounter
--- OUTSIDE RECORDS SUMMARY | 2025-01-10 08:58 | XMS_ITS | Encounter Summary ---
Author Organization [employer] s tem Address [facility] [id number] [address] [place] [address] Care Team Providers Care Construction Quality Control Manager Name Role Phone Hever Caal DO Primary Care Provider [phone] Encounter Details Date Type Department Care Team ([facility] Contact Info) Description 03/19/2024 [facility] [address] [place] [address] Ref Prov, [place] [address] Social History Tobacco Use Types Packs/Day Years [...] Upcoming Encounters Date Type Department Care Team ([facility] Contact Info) Description 04/05/2025 10:15 AM EDT [facility] [address] [place] [address] Hever Caal DO [address] [place] [address] 06/11/2025 1:15 PM EST Office Visit [facility] [address] [place] [address] [place] [address] Alfonzo Lucero MD [address] [place] [address] documented as of this encounter Procedures Procedure Name Priority Date/Time Associated Diagnosis Comments EXTERNAL ART EDUCATION PROFESSOR, CGM SYS Routine 03/16/2024 9:10 AM EDT documented in this encounter Results * EXTERNAL ART EDUCATION PROFESSOR, CGMolly SYS (03/16/2024 9:10 AM EDT) us Not In System Ref Prov [place] MISCELLANEOUS SERVICES Final Result MANUALLY TRANSCRIBED RESULTS documented in this encounter Visit Diagnoses Not on filedocumented in this encounter Additional Health Concerns Assessment Noted Time PHQ-9 Depression Total Score: 0 03/16/20 24 11:36 AM EDT A Body Mass Index follow-up plan has been documented for the patient 01/26/2024 3:52 PM EDT documented as of this encounter Care Teams Construction Quality Control Manager Relationship Specialty Start Date End Date Hever Caal DO [address] [place] [address] PCP - General Internal Medicine 02/01/23 documented as of this encounter
--- OUTSIDE RECORDS SUMMARY | 2025-01-10 08:58 | XMS_ITS | Encounter Summary ---
Author Organization [employer] s tem Address [facility] [id number] [address] [place] [address] Care Team Providers Care Commercial Green Retrofit Architect Name Role Phone Hever Caal DO Primary Care Provider [phone] Encounter Details Date Type Department Care Team ([facility] Contact Info) Description 04/13/2024 [facility] - [facility] Medicine [address] [place] [address] Ref Prov, [place] [address] Social History Tobacco Use Types Packs/Day Years Used Date Smoking Tobacco: Never Smokeless Tobacco: Never Alcohol Use Standard Drinks/Week Comments Yes 0 (1 standard drink = 0.6 oz pur e alcohol) socially PHQ-2 Answer Date Recorded Total Score 0 04/13/2024 Childcare Answer Date Recorded Childcare Unknown 04/04/2020 Employment Answer Date Recorded Employment Unknown 04/04/2020 Hunger Screening Answer Date Recorded Within the past 12 months we worried whether our food would run out before we got money to buy more. Never True 04/13/2024 Within the past 12 months th e food we bought just didn't last and we didn't have money to get more. Never True 04/13/2024 Purpose - Life Answer Date Recorded Purpose and direction in life Unknown Sex and Gender Information Value Date Recorded Sex Assigned at Not on file Legal Sex Male 11:21 AM EDT Gender Identity Not on file Sexual Orientation Not on file documented as of this encounter Plan of Treatment Upcoming Encounters Date Type Department Care Team ([facility] Contact Info) Description 04/05/2025 10:15 AM EDT [facility] Medicine [address] [place] [address] Hever Caal DO [address] [place] [address] 06/11/2025 1:15 PM EST Office Visit [facility] [address] [place] [address] [place] [address] Alfonzo Lucero MD [address] [place] [address] documented as of this encounter Procedures Procedure Name Priority Date/Time Associated Diagnosis Comments EXTERNAL CADD OPERATOR, CGM SYS Routine 04/13/2024 12:48 PM EDT documented in this encounter Results * EXTERNAL CADD OPERATOR, CGM SYS (04/13/2024 12:48 PM EDT) us Not In System Ref Prov [place] MISCELLANEOUS SERVICES Final Result MANUALLY TRANSCRIBED RESULTS documented in this encounter Visit Diagnoses Not on filedocumented in this encounter Additional Health Concerns Assessment Noted Time PHQ-9 Depression Total Score: 0 04/13/20 24 11:45 AM EDT A Body Mass Index follow-up plan has been documented for the patient 01/26/2024 3:52 PM EDT documented as of this encounter Care Teams Commercial Green Retrofit Architect Relationship Specialty Start Date End Date Hever Caal DO [address] [place] [address] PCP - General Internal Medicine 02/01/23 documented as of this encounter
--- OUTSIDE RECORDS SUMMARY | 2025-01-10 08:58 | XMS_ITS | Encounter Summary ---
Author Organization [email or web address] s tem Address [id number] [address] [place] [address] Care Team Providers Care Track Fitter Name Role Phone Hever Caal DO Primary Care Provider [phone] Encounter Details Date Type Department Care Team ([facility] Contact Info) Description 03/14/2024 [facility] - Family Medicine [address] [place] [address] Ref Prov, [place] [address] Social History Tobacco Use Types Packs/Day Years [...] Upcoming Encounters Date Type Department Care Team ([facility] Contact Info) Description 04/05/2025 10:15 AM EDT [facility] - Family Medicine [address] [place] [address] Hever Caal DO [address] [place] [address] 06/11/2025 1:15 PM EST Office Visit [facility] [address] [place] [address] [place] [address] Alfonzo Lucero MD [address] [place] [address] documented as of this encounter Procedures Procedure Name Priority Date/Time Associated Diagnosis Comments EXTERNAL SAP BI DEVELOPER, CGMolly SYS Routine 03/14/2024 8:23 AM EDT documented in this encounter Results * EXTERNAL SAP BI DEVELOPER, CGMolly SYS (03/14/2024 8:23 AM EDT) us Not In System Ref Prov [place] MISCELLANEOUS SERVICES Final Result MANUALLY TRANSCRIBED RESULTS documented in this encounter Visit Diagnoses Not on filedocumented in this encounter Additional Health Concerns Assessment Noted Time PHQ-9 Depression Total Score: 0 02/07/20 24 11:27 AM EDT A Body Mass Index follow-up plan has been documented for the patient 01/26/2024 3:52 PM EDT documented as of this encounter Care Teams Track Fitter Relationship Specialty Start Date End Date Hever Caal DO [address] [place] [address] PCP - General Internal Medicine 02/01/23 documented as of this encounter
--- OUTSIDE RECORDS SUMMARY | 2025-01-10 08:58 | XMS_ITS | Encounter Summary ---
Author Organization [facility] Address [address] [facility] [place] [address] Care Team Providers Care Slat Basket Maker Helper Name Role Phone Hever Caal MD Primary Care Provider [phone] Encounter Details Date Type Department Care Team (Late Contact Info) Description 01/09/2025 Telephone [facility] [address] [facility] [address] [place] [address] Cierra Owens LPN Social History Tobacco Use Types Packs/Day [...] encounter Miscellaneous Notes * Telephone Encounter - Cierra Yun LPN - 01/09/2025 2:56 PM EDT Images from the original note were not included. [facility] PA approval Prior authorization approved Payer: JESUS Nix [phone] Note from payer: Your PA request has been approved. Additional information will be provided in the approval communication. (Message 1149) Approval Details Authorized from January 09, 2025 to May 09, 2025 Electronic appeal: Not supported Patient may fill at their convenience documented in this encounter Plan of Treatment Upcoming Encounters Date Type Department Care Team (Late Contact Info) Description 01/16/2025 10:50 AM EDT Office Visit [facility] [address] [facility] [address] [place] [address] Prerna Salazar MD 112 [facility] 130 [place] [address] 05/14/2025 11:25 AM EST Office Visit [facility] [address] [place] [address] [place] [address] Mary Brunson MD [address] [facility] 350 [place] [address] documented as of this encounter Visit Diagnoses Not on filedocumented in this encounter Care Teams Slat Basket Maker Helper Relationship Specialty Start Date End Date Hever Caal MD [address] [place] [address] PCP - General Internal Medicine 01/08/25 documented as of this encounter
--- OUTSIDE RECORDS SUMMARY | 2025-01-10 08:58 | XMS_ITS | Encounter Summary ---
Author Organization [facility] Address [address] [place] [address] Care Team Providers Care Industrial Furnace Fabricator Name Role Phone Hever Caal MD Primary Care Provider [phone] Encounter Details Date Type Department Care Team ([facility] Contact Info) Description 01/09/2025 Bamboo flowsheet [facility] [address] [facility] [address] [place] [address] [place] [address] Mary Brunson MD [address] [facility] [address] [place] [address] Social History Tobacco Use Types Packs/Day Years [...] Upcoming Encounters Date Type Department Care Team ([facility] Contact Info) Description 01/16/2025 10:50 AM EDT Office Visit [facility] [address] [facility] 130 [place] [address] Prerna Salazar MD 112 [facility] 130 [place] [address] 05/14/2025 11:25 AM EST Office Visit [facility] [address] [facility] [facility] [address] [place] [address] [place] [address] Mary Brunson MD [address] [facility] [address] [place] [address] [place] [address] documented as of this encounter Visit Diagnoses Not on filedocumented in this encounter Care Teams Industrial Furnace Fabricator Relationship Specialty Start Date End Date Hever Caal MD [address] [place] [address] PCP - General Internal Medicine 01/08/25 documented as of this encounter
--- OUTSIDE RECORDS SUMMARY | 2025-01-10 08:58 | XMS_ITS | Encounter Summary ---
Author Organization [facility] Address [address] [place] [address] Care Team Providers Care Engineering Tech Name Role Phone Hever Caal MD Primary Care Provider Encounter Details Date Type Department Care Team (Latest Contact Info) Description 01/09/2025 Travel Social History Tobacco Use Types Packs/Day Years [...] EDT Office Visit [facility] [address] [facility] 130 [place] [address] Prerna Salazar MD 112 [facility] 130 [place] [address] 05/14/2025 11:25 AM EST Office Visit [facility] [address] [facility] 350 [place] [address] Mary Brunson MD [address] [facility] 350 [place] [address] documented as of this encounter Visit Diagnoses Not on filedocumented in this encounter Care Teams Engineering Tech Relationship Specialty Start Date End Date Hever Caal MD [address] [place] [address] PCP - General Internal Medicine 01/08/25 documented as of this encounter
--- OUTSIDE RECORDS SUMMARY | 2025-01-10 08:58 | XMS_ITS | Encounter Summary ---
Author Organization [employer] s tem Address [id number] [address] [place] [address] Care Team Providers Care Awning Installer Name Role Phone Hever Caal DO Primary Care Provider Encounter Details Date Type Department Care Team ([facility] Contact Info) Description 03/26/2024 Orders Only [facility] - Family Medicine [address] [place] [address] Ref Prov, [place] [address] Social History Tobacco Use Types Packs/Day Years [...] Upcoming Encounters Date Type Department Care Team ([facility] Contact Info) Description 04/05/2025 10:15 AM EDT Office Visit [facility] Internal Medicine - Family Medicine [address] [place] [address] Hever Caal DO [address] [place] [address] 06/11/2025 1:15 PM EST Office Visit [facility] [address] [place] [address] [place] [address] Alfonzo Lucero MD [address] [place] [address] documented as of this encounter Procedures Procedure Name Priority Date/Time Associated Diagnosis Comments EXTERNAL TRANSITION MGR RN, CGM SYS Routine 03/26/2024 9:59 AM EDT documented in this encounter Results * EXTERNAL TRANSITION MGR RN, CGM SYS (03/26/2024 9:59 AM EDT) us Not In System Ref Prov [place] MISCELLANEOUS SERVICES Final Result MANUALLY TRANSCRIBED RESULTS documented in this encounter Visit Diagnoses Not on filedocumented in this encounter Additional Health Concerns Assessment Noted Time PHQ-9 Depression Total Score: 0 03/16/20 24 11:36 AM EDT A Body Mass Index follow-up plan has been documented for the patient 01/26/2024 3:52 PM EDT documented as of this encounter Care Teams Awning Installer Relationship Specialty Start Date End Date Hever Caal DO [address] [place] [address] PCP - General Internal Medicine 02/01/23 documented as of this encounter
--- OUTSIDE RECORDS SUMMARY | 2025-01-10 08:58 | XMS_ITS | Encounter Summary ---
Author Organization [employer] [facility] tem Address [facility] [id number] [address] [place] [address] Care Team Providers Care Marine Engineering Teacher Name Role Phone Hever Caal DO Primary Care Provider [phone] Encounter Details Date Type Department Care Team ([facility] Contact Info) Description 02/01/2023 Orders Only [facility] Internal Medicine - Family Medicine [address] [place] [address] Hever Caal DO [address] [place] [id number] Type 2 diabetes mellitus without complication, without long-term current use of insulin ([facility]); Diarrhea, unspecified type Social History Tobacco Use Types Packs/Day Years [...] Upcoming Encounters Date Type Department Care Team ([facility] Contact Info) Description 04/05/2025 10:15 AM EDT [facility] Medicine [address] [place] [address] Hever Caal DO [address] [place] [address] 06/11/2025 1:15 PM EST Office Visit [facility] [address] [place] [address] [place] [address] Alfonzo Lucero MD [address] [place] [address] documented as of this encounter Visit Diagnoses Diagnosis Type 2 diabetes mellitus without complication, without long-term current use of insulin ([facility]) Diarrhea, unspecified type documented in this encounter Additional Health Concerns Assessment Noted Time PHQ-9 Depression Total Score: 0 01/19/20 10:56 AM EDT documented as of this encounter Care Teams Marine Engineering Teacher Relationship Specialty Start Date End Date Hveer Caal DO [address] [place] [address] PCP - General Internal Medicine 02/01/23 documented as of this encounter
--- OUTSIDE RECORDS SUMMARY | 2025-01-10 08:58 | XMS_ITS | Encounter Summary ---
Author Organization [facility] Address [address] [place] [address] Care Team Providers Care Application Systems Architect Name Role Phone Hever Caal MD Primary Care Provider [phone] Hever Caal MD Primary Care Provider [phone] Reason for Visit * Reason Comments Med Change Request Encounter Details Date Type Department Care Team ([facility] Contact Info) Description 06/27/2024 Refill [facility] [address] [facility] [address] [place] [address] [place] [address] Mary Brunson MD [address] [facility] [address] [place] [address] [place] [address] Plaque psoriasis Social History Tobacco Use Types Packs/Day Years [...] encounter Miscellaneous Notes * Telephone Encounter - Madeleine Malin LPN - 06/27/2024 11:42 AM EST Clarification to GYPSY Bimzelx sent to pharmacy by sending new Rx at this time. documented in this encounter Plan of Treatment Upcoming Encounters Date Type Department Care Team ([facility] Contact Info) Description 01/16/2025 10:50 AM EDT Office Visit [facility] [address] [place] [address] [place] [address] Prerna Salazar MD 112 [facility] 130 [place], [place] [phone] 05/14/2025 11:25 AM EST Office Visit [facility] [address] [place] [address] [place] [address] Mary Brunson MD [address] [place] [address] [place] [address] documented as of this encounter Visit Diagnoses Diagnosis Plaque psoriasis Other psoriasis documented in this encounter Care Teams Application Systems Architect Relationship Specialty Start Date End Date Hever Caal MD PCP - General Internal Medicine 12/28/23 01/07/25 Hever Caal MD [facility] [place] [address] PCP - General Internal Medicine 01/08/25 documented as of this encounter
--- OUTSIDE RECORDS SUMMARY | 2025-01-10 08:58 | XMS_ITS | Encounter Summary ---
Author Organization [facility] [employer] [facility] tem Address [id number] [address] [place] [address] Care Team Providers Care Meat And Poultry Inspector Name Role Phone Hever Caal DO Primary Care Provider Reason for Referral * Cardiology (Emergency) - Closed Specialty Diagnoses / Procedures Referred By Contvandana t Referred To Contact Diagnoses Dyspnea on exertion Procedures Nuc stress exercise Hever Caal DO [address] [place] [address] Phone: tel: fax: Referral ID Status Reason Start Date Expiration Date Visits Re quested Visits Authorized [id number] Closed 02/17/2023 02/17/2024 5 5 Encounter Details Date Type Department Care Team (Late st Contact Info) Description 02/17/2023 Orders Only [facility] Internal Medicine - Family Medicine [address] [place] [address] Hever Caal DO [address] [place], [place] [phone] Dyspnea on exertion (Primary Dx) Social History Tobacco Use Types [...] Internal Medicine - Family Medicine [address] [place] [address] Hever Caal DO [address] [place] [address] 06/11/2025 1:15 PM EST Office Visit [facility] [address] [place] [address] [place] [address] Alfonzo Lucero MD [facility] [place] [address] documented as of this encounter Results * Nuc stress exercise (02/23/2023 8:25 AM EDT) Target HR 168 bpm SECTRAIECG Nuc Stress EF 67 % SE[facility]G End diastolic volume (mL) 172 mL SECTRAIECG End systolic volume (mL) 56 mL SECTRAIECG TID 0.91 SECTRAIECG Anatomical Region Laterality Modality Chest N/A Nuclear Medicine , Nuclear Medicine Narrative 02/24/2023 9:44 AM EDT Stress Function Comments: Left ventricular function post-stress is normal. Stress ejection fraction is 67 %. Perfusion Defect: Technical difficult study with excessive GI uptake and diaphragmatic attenuation. Inferior fixed defect likely attenuation artifact. Small reversible defect in the apex. Although this appeared to be consistent with ischemia I can not totally rule out an artifact. Clinical correlation and correlation with the stress part of the test is recommended. Dr. Caal to read stress portion, Cardiology to read Nuclear Imaging. Isotope Administration The isotope used for nuclear imaging was technetium sestamibi. Imaging was performed at rest after an injection on 02/23/2023 at 07:05 EDT of 31.8 mCi. Imaging was performed at peak stress after an injection on 02/22/2023 at 12:27 EDT of 32 mCi. Perfusion Defect Technical difficult study with excessive GI uptake and diaphragmatic attenuation. Inferior fixed defect likely attenuation artifact. Small reversible defect in the apex. Although this appeared to be consistent with ischemia I can not totally rule out an artifact. Clinical correlation and correlation with the stress part of the test is recommended. Perfusion Defect Conclusion TID ratio is 0.91. Stress Function Comments Left ventricular function post-stress is normal. Stress ejection fraction is 67 %. Hever Caal DO CV STRESS ORDERABLES Final Resul t documented in this encounter Visit Diagnoses Diagnosis Dyspnea on exertion- Primary Other dyspnea and respiratory abnormality Dyspnea on exertion Other dyspnea and respiratory abnormality Dyspnea on exertion Other dyspnea and respiratory abnormality documented in this encounter Additional Health Concerns Assessment Noted Time PHQ-9 Depression Total Score: 0 02/17/20 23 2:45 PM EDT documented as of this encounter Care Teams Meat And Poultry Inspector Relationship Specialty Start Date End Date Hever Caal DO [address] [place] [address] PCP - General Internal Medicine 02/01/23 documented as of this encounter
--- OUTSIDE RECORDS SUMMARY | 2025-01-10 08:59 | XMS_ITS | Encounter Summary ---
Author Organization [employer] [facility] tem Address [id number] [address] [place] [address] Care Team Providers Care Foil Spinner Name Role Phone Hever Caal DO Primary Care Provider [phone] Encounter Details Date Type Department Care Team ([facility] Contact Info) Description 03/24/2023 Orders Only [facility] Internal Medicine - Family Medicine [address] [place] [address] Hever Caal DO [address] [place] [address] B12 deficiency (Primary Dx) Social History Tobacco Use Types Packs/Day Years Used Date Smoking Tobacco: Never Smokeless Tobacco: Never Alcohol Use Standard Drinks/Week Comments Yes 0 (1 standard drink = 0.6 oz pur e alcohol) socially PHQ-2 Answer Date Recorded Total Score 4 03/23/2023 Childcare Answer Date Recorded Childcare Unknown 04/04/2020 [...] Encounters Date Type Department Care Team ([facility] Contact Info) Description 04/05/2025 10:15 AM EDT [facility] Medicine [address] [place] [address] Hever Caal DO [address] [place] [address] 06/11/2025 1:15 PM EST Office Visit [facility] [address] [place] [address] [address] [facility] [place] [address] Alfonzo Lucero MD [address] [place] [address] documented as of this encounter Visit Diagnoses Diagnosis B12 deficiency- Primary documented in this encounter Additional Health Concerns Assessment Noted Time PHQ-9 Depression Total Score: 4 03/23/20 23 2:01 PM EDT documented as of this encounter Care Teams Foil Spinner Relationship Specialty Start Date End Date Hever Caal DO [address] [place] [address] PCP - General Internal Medicine 02/01/23 documented as of this encounter
--- OUTSIDE RECORDS SUMMARY | 2025-01-10 08:59 | XMS_ITS | Clinical Summary ---
Author Organization [facility] Address [address] [place] [address] Phone Care Team Providers Care Plant Senior Manager Name Role Phone Kuldeep Durant MD Primary Care Provider + Social History Tobacco Use Types Packs/Day Years Used Date Smoking Tobacco: Never Assessed Sex and Gender Information Value Date Recorded Sex Assigned at Not on file Legal Sex Male 4:53 PM EST Gender Identity Not on file Sexual Orientation Not on file Plan of Treatment Not on file Care Teams Plant Senior Manager Relationship Specialty Start Date End Date Kuldeep Durant MD PCP - General 03/11/19
--- OUTSIDE RECORDS SUMMARY | 2025-01-10 08:59 | XMS_ITS | Encounter Summary ---
Author Organization [employer] s tem Address [facility] [id number] [address] [place] [address] Care Team Providers Care Registered Nurse Supervisor Name Role Phone Hever Caal DO Primary Care Provider [phone] Encounter Details Date Type Department Care Team ([facility] Contact Info) Description 08/01/2024 [facility] [address] [place] [address] Ref Prov, [place] [address] Social History Tobacco Use Types Packs/Day Years [...] Upcoming Encounters Date Type Department Care Team ([facility] Contact Info) Description 04/05/2025 10:15 AM EDT Office Visit [facility] Internal Medicine - Family Medicine [address] [place] [address] Hever Caal DO [address] [place] [address] 06/11/2025 1:15 PM EST Office Visit [facility] [address] [place] [address] [place] [address] Alfonzo Lucero MD [address] [place] [address] documented as of this encounter Procedures Procedure Name Priority Date/Time Associated Diagnosis Comments EXTERNAL BUTADIENE CONVERTER UTILITY OPERATOR, CGM SYS Routine 08/01/2024 8:01 AM EST documented in this encounter Results * EXTERNAL BUTADIENE CONVERTER UTILITY OPERATOR, CGM SYS (08/01/2024 8:01 AM EST) us Not In System Ref Prov MD MISCELLANEOUS SERVICES Final Result MANUALLY TRANSCRIBED RESULTS documented in this encounter Visit Diagnoses Not on filedocumented in this encounter Additional Health Concerns Assessment Noted Time PHQ-9 Depression Total Score: 0 07/31/19 3:34 PM EST A Body Mass Index follow-up plan has been documented for the patient 01/26/2024 3:52 PM EDT documented as of this encounter Care Teams Registered Nurse Supervisor Relationship Specialty Start Date End Date Hever Caal DO [address] [place] [address] PCP - General Internal Medicine 02/01/23 documented as of this encounter
--- OUTSIDE RECORDS SUMMARY | 2025-01-10 08:59 | XMS_ITS | Encounter Summary ---
Author Organization [facility] [employer] [facility] [employer] Address [facility] [id number] [address] [place] [address] Care Team Providers Care Track Repair Laborer Name Role Phone Hever Caal DO Primary Care Provider [phone] Reason for Visit * Reason Onset Date Comments Med Refill 03/09/2024 Encounter Details Date Type Department Care Team (Late st Contact Info) Description 03/09/2024 Refill [facility] Internal Medicine - Family Medicine [address] [place] [phone] Willa, Nydia, PUBLIC HEALTH POLICY ANALYST Hypercholesterolemia Social History Tobacco Use Types Packs/Day Years Used Date Smoking Tobacco: Never Smokeless Tobacco: Never Alcohol Use Standard Drinks/Week Comments Yes 0 (1 standard drink = 0.6 oz pur e alcohol) socially PHQ-2 Answer Date Recorded Total Score 0 02/07/2024 Childcare Answer Date Recorded Childcare Unknown 04/04/2020 Employment Answer Date Recorded Employment Unknown 04/04/2020 Hunger Screening Answer Date Recorded Within the past 12 months we worried whether our food would run out before we got money to buy more. Never True 02/07/2024 Within the past 12 months th e food we bought just didn't last and we didn't have money to get more. Never True 02/07/2024 Purpose - Life Answer Date Recorded Purpose and direction in life Unknown Sex and Gender Information Value Date Recorded Sex Assigned at Not on file Legal Sex Male 11:21 AM EDT Gender Identity Not on file Sexual Orientation Not on file documented as of this encounter Miscellaneous Notes * Telephone Encounter - Hever Caal DO - 03/09/2024 12:10 PM EDT Duplicate request documented in this encounter Plan of Treatment Upcoming Encounters Date Type Department Care Team (Late st Contact Info) Description 04/05/2025 10:15 AM EDT Office Visit [facility] Internal Medicine - Family Medicine [address] [place] [address] Hever Caal DO [address] [place] [address] 06/11/2025 1:15 PM EST Office Visit [facility] [address] [place] [address] A [facility] [place] [phone] Alfonzo Lucero MD [address] [place] [address] documented as of this encounter Visit Diagnoses Diagnosis Hypercholesterolemia Pure hypercholesterolemia documented in this encounter Additional Health Concerns Assessment Noted Time PHQ-9 Depression Total Score: 0 02/07/20 24 11:27 AM EDT A Body Mass Index follow-up plan has been documented for the patient 01/26/2024 3:52 PM EDT documented as of this encounter Care Teams Track Repair Laborer Relationship Specialty Start Date End Date Hever Caal DO [address] [place] [address] PCP - General Internal Medicine 02/01/23 documented as of this encounter
--- OUTSIDE RECORDS SUMMARY | 2025-01-10 08:59 | XMS_ITS | Encounter Summary ---
Author Organization [employer] s tem Address [id number] [address] [place] [address] Care Team Providers Care Business Practices Supervisor Name Role Phone Hever Caal DO Primary Care Provider [phone] Encounter Details Date Type Department Care Team ([facility] Contact Info) Description 05/22/2024 [facility] [address] [place] [address] Ref Prov, [place] [address] Social History Tobacco Use Types Packs/Day Years Used Date Smoking Tobacco: Never Smokeless Tobacco: Never Alcohol Use Standard Drinks/Week Comments Yes 0 (1 standard drink = 0.6 oz pur e alcohol) socially PHQ-2 Answer Date Recorded Total Score 0 05/18/2024 Childcare Answer Date Recorded Childcare Unknown 04/04/2020 Employment Answer Date Recorded Employment Unknown 04/04/2020 Hunger Screening Answer Date Recorded Within the past 12 months we worried whether our food would run out before we got money to buy more. Never True 05/18/2024 Within the past 12 months th e food we bought just didn't last and we didn't have money to get more. Never True 05/18/2024 Purpose - Life Answer Date Recorded Purpose and direction in life Unknown Sex and Gender Information Value Date Recorded Sex Assigned at Not on file Legal Sex Male 11:21 AM EDT Gender Identity Not on file Sexual Orientation Not on file documented as of this encounter Plan of Treatment Upcoming Encounters Date Type Department Care Team ([facility] Contact Info) Description 04/05/2025 10:15 AM EDT [facility] [address] [place] [address] Hever Caal DO [address] [place] [address] 06/11/2025 1:15 PM EST Office Visit [facility] [address] [place] [address] [place] [address] Alfonzo Lucero MD [address] [place] [address] documented as of this encounter Procedures Procedure Name Priority Date/Time Associated Diagnosis Comments EXTERNAL FURNITURE DELIVERY DRIVER, CGM SYS Routine 05/18/2024 4:25 PM EST documented in this encounter Results * EXTERNAL FURNITURE DELIVERY DRIVER, CGM SYS (05/18/2024 4:25 PM EST) us Not In System Ref Prov OK MISCELLANEOUS SERVICES Final Result MANUALLY TRANSCRIBED RESULTS documented in this encounter Visit Diagnoses Not on filedocumented in this encounter Additional Health Concerns Assessment Noted Time PHQ-9 Depression Total Score: 0 05/18/20 24 10:39 AM EST A Body Mass Index follow-up plan has been documented for the patient 01/26/2024 3:52 PM EDT documented as of this encounter Care Teams Business Practices Supervisor Relationship Specialty Start Date End Date Hever Caal DO [address] [place] [address] PCP - General Internal Medicine 02/01/23 documented as of this encounter
--- OUTSIDE RECORDS SUMMARY | 2025-01-10 08:59 | XMS_ITS | Encounter Summary ---
Author Organization [employer] s [employer] Address [id number] [address] [place] [address] Care Team Providers Care Hot Tar Roofer Name Role Phone Hever Caal DO Primary Care Provider [phone] Encounter Details Date Type Department Care Team (Late Contact Info) Description 02/23/2023 Telephone [facility] Internal Medicine - Family Medicine [address] [place] [phone] Kayleigh Alejandro MA Social History Tobacco Use [...] Telephone Encounter - Kayleigh Alejandro MA - 02/23/2023 2:38 PM EDT [facility] behavioral called and is scheduled with intake 02/28, counselor Moustapha documented in this encounter Plan of Treatment Upcoming Encounters Date Type Department Care Team (Late Contact Info) Description 04/05/2025 10:15 AM EDT Office Visit [facility] Internal Medicine - Family Medicine [address] [place] [address] Hever Caal DO [address] [place] [address] 06/11/2025 1:15 PM EST Office Visit [facility] [address] [place] [address] [facility] [place] [address] Alfonzo Lucero MD [address] [place] [address] documented as of this encounter Visit Diagnoses Not on filedocumented in this encounter Additional Health Concerns Assessment Noted Time PHQ-9 Depression Total Score: 0 02/17/20 2:45 PM EDT documented as of this encounter Care Teams Hot Tar Roofer Relationship Specialty Start Date End Date Hever Caal DO [address] [place] [address] PCP - General Internal Medicine 02/01/23 documented as of this encounter
--- OUTSIDE RECORDS SUMMARY | 2025-01-10 08:59 | XMS_ITS | Encounter Summary ---
Author Organization [facility] Address [id number] [address] [place] [address] Care Team Providers Care Emergency Generator Mechanic Name Role Phone Hever Caal DO Primary Care Provider [phone] Encounter Details Date Type Department Care Team (Late st Contact Info) Description 09/24/2024 Orders Only [facility] Internal Medicine - Family Medicine [address] [place] [address] Hever Caal DO [address] [place] [address] Type 2 diabetes mellitus with hyperglycemia, with long-term current use of insulin ([facility]) (Primary Dx) Social History Tobacco Use [...] Internal Medicine - Family Medicine [address] [place] [address] Hever Caal DO [address] [place] [address] 06/11/2025 1:15 PM EST Office Visit [facility] [address] [place] [address] Alfonzo Lucero MD [address] [place] [address] documented as of this encounter Visit Diagnoses Diagnosis Type 2 diabetes mellitus with hyperglycemia, with long-term current use of insulin ([facility])- Primary documented in this encounter Additional Health Concerns Assessment Noted Time PHQ-9 Depression Total Score: 0 07/31/19 3:34 PM EST A Body Mass Index follow-up plan has been documented for the patient 01/26/2024 3:52 PM EDT documented as of this encounter Care Teams Emergency Generator Mechanic Relationship Specialty Start Date End Date Hever Caal DO [address] [place] [address] PCP - General Internal Medicine 02/01/23 documented as of this encounter
--- OUTSIDE RECORDS SUMMARY | 2025-01-10 08:59 | XMS_ITS | Encounter Summary ---
Author Organization [employer] Address [facility][id number] [address] [place] [address] Care Team Providers Care Railroad Inspector Name Role Phone Hever Caal Primary Care Provider [phone] Encounter Details Date Type Department Care Team (Late st Contact Info) Description 09/24/2024 Telephone [facility] Internal Medicine - Family Medicine [address] [place] [address] Nydia Crouch CMA Social History Tobacco Use Types Packs/Day [...] encounter Miscellaneous Notes * Telephone Encounter - Nydia Crouch CMA - 09/24/2024 3:45 PM EDT [facility] to [facility] if [facility] can send raffaele new RX for the 5mm instead of the 4mm pen needles ? The 4 mm are on back order * Telephone Encounter - Hever Caal DO - 09/24/2024 3:45 PM EDT Message noted. New order sent for Pen Needle 09/23 in documented in this encounter Plan of Treatment Upcoming Encounters Date Type Department Care Team (Late st Contact Info) Description 04/05/2025 10:15 AM EDT Office Visit [facility] Internal Medicine - Family Medicine [address] [place] [address] Hever Caal DO [address] [place] [address] 06/11/2025 1:15 PM EST Office Visit [facility] [address] [place] [address] [place] [address] Alfonzo Lucero MD [address] [place] [address] documented as of this encounter Visit Diagnoses Not on filedocumented in this encounter Additional Health Concerns Assessment Noted Time PHQ-9 Depression Total Score: 0 07/31/19 25 3:34 PM EST A Body Mass Index follow-up plan has been documented for the patient 01/26/2024 3:52 PM EDT documented as of this encounter Care Teams Railroad Inspector Relationship Specialty Start Date End Date Hever Caal DO [address] [place] [address] PCP - General Internal Medicine 02/01/23 documented as of this encounter
--- OUTSIDE RECORDS SUMMARY | 2025-01-10 08:59 | XMS_ITS | Encounter Summary ---
Author Organization [facility] Address [id number] [address] [place] [address] Care Team Providers Care Technologist Infectious Disease Name Role Phone Hever Caal DO Primary Care Provider [phone] Reason for Referral * Consultation (Routine) - Closed Specialty Diagnoses / Procedures Referred By Contac t Referred To Contact Psychiatry Diagnoses Bipolar 1 disorder, depressed (CMS-HCC) Hever Caal DO [address] [place] [address] Phone: tel: fax: Isadora Lutz MD [address] [place] [address] Phone: tel: fax: Referral ID Status Reason Start Date Expiration Date V isits Requested Visits Authorized [id number] Closed Specialty Services Required 02/21/2023 02/21/2024 4 4 Encounter Details Date Type Department Care Team (Late st Contact Info) Description 02/21/2023 Orders Only [facility] Internal Medicine - Family Medicine [address] [place] [address] Hever Caal DO [address] [place], [place] [phone] Bipolar 1 disorder, depressed ([facility]) (Primary Dx) Social History Tobacco Use Types [...] Internal Medicine - Family Medicine [address] [place] [address] Hever Caal DO [address] [place] [address] 06/11/2025 1:15 PM EST Office Visit [facility] [address] [place] [phone] Alfonzo Lucero MD [address] [place] [address] Scheduled Referrals Name Type Priority Associated Diagnoses Order Schedule Ambulatory referral to Psychiatry Outpatient Referral Routine Bipolar 1 disorder, depressed ([facility]) 1 Occurrences starting 02/21/2023 until 02/22/2024 documented as of this encounter Visit Diagnoses Diagnosis Bipolar 1 disorder, depressed ([facility])- Primary documented in this encounter Additional Health Concerns Assessment Noted Time PHQ-9 Depression Total Score: 0 02/17/20 2:45 PM EDT documented as of this encounter Care Teams Technologist Infectious Disease Relationship Specialty Start Date End Date Hever Caal DO [address] [place] [address] PCP - General Internal Medicine 02/01/23 documented as of this encounter
--- OUTSIDE RECORDS SUMMARY | 2025-01-10 08:59 | XMS_ITS | Encounter Summary ---
Author Organization [facility] [facility] Address [facility] [id number] [address] [place] [address] Care Team Providers Care National Business Director Name Role Phone Hever Caal DO Primary Care Provider [phone] Encounter Details Date Type Department Care Team ([facility] Contact Info) Description 04/04/2023 Orders Only [facility] Internal Medicine - Family Medicine [address] [place] [address] Hever Caal DO [address] [place] [address] Exocrine pancreatic insufficiency Social History Tobacco Use [...] Encounters Date Type Department Care Team ([facility] Contact Info) Description 04/05/2025 10:15 AM EDT [facility] Medicine [address] [place] [phone] Hever Caal DO [address] [place] [address] 06/11/2025 1:15 PM EST Office Visit [facility] [address] [place] [address] [place] [address] Alfonzo Lucero MD [facility] [place] [address] documented as of this encounter Visit Diagnoses Diagnosis Exocrine pancreatic insufficiency Other specified disease of pancreas documented in this encounter Additional Health Concerns Assessment Noted Time PHQ-9 Depression Total Score: 4 03/23/20 23 2:01 PM EDT documented as of this encounter Care Teams National Business Director Relationship Specialty Start Date End Date Hever Caal DO [address] [place] [address] PCP - General Internal Medicine 02/01/23 documented as of this encounter
--- OUTSIDE RECORDS SUMMARY | 2025-01-10 08:59 | XMS_ITS | Encounter Summary ---
Author Organization [facility] [employer] Address [id number] [address] [place] [address] Care Team Providers Care Bike Mechanic Name Role Phone Hever Caal DO Primary Care Provider [phone] Reason for Visit * Reason Onset Date Comments Med Refill 01/30/2024 Encounter Details Date Type Department Care Team (Late st Contact Info) Description 01/30/2024 Refill [facility] Internal Medicine - Family Medicine [address] [place] [phone] Willa, Nydia, DEVICE REPAIR TECHNICIAN Mild persistent asthma without complication Social History Tobacco Use Types Packs/Day Years Used Date Smoking Tobacco: Never Smokeless Tobacco: Never Alcohol Use Standard Drinks/Week Comments Yes 0 (1 standard drink = 0.6 oz pur e alcohol) socially PHQ-2 Answer Date Recorded Total Score 0 01/26/2024 Childcare Answer Date Recorded Childcare Unknown 04/04/2020 Employment Answer Date Recorded Employment Unknown 04/04/2020 Hunger Screening Answer Date Recorded Within the past 12 months we worried whether our food would run out before we got money to buy more. Never True 01/26/2024 Within the past 12 months th e food we bought just didn't last and we didn't have money to get more. Never True 01/26/2024 Purpose - Life Answer Date Recorded Purpose and direction in life Unknown Sex and Gender Information Value Date Recorded Sex Assigned at Not on file Legal Sex Male 11:21 AM EDT Gender Identity Not on file Sexual Orientation Not on file documented as of this encounter Miscellaneous Notes * Telephone Encounter - Hever Caal DO - 01/30/2024 4:01 PM EDT Duplicate request documented in this encounter Plan of Treatment Upcoming Encounters Date Type Department Care Team (Late st Contact Info) Description 04/05/2025 10:15 AM EDT Office Visit [facility] Internal Medicine - Family Medicine [address] [place] [address] Hever Caal DO [address] [place] [address] 06/11/2025 1:15 PM EST Office Visit [facility] [address] [place] [address] [place] [phone] Alfonzo Lucero MD [address] [place] [address] documented as of this encounter Visit Diagnoses Diagnosis Mild persistent asthma without complication documented in this encounter Additional Health Concerns Assessment Noted Time PHQ-9 Depression Total Score: 0 01/26/20 24 2:46 PM EDT A Body Mass Index follow-up plan has been documented for the patient 01/26/2024 3:52 PM EDT documented as of this encounter Care Teams Bike Mechanic Relationship Specialty Start Date End Date Hever Caal DO [address] [place] [address] PCP - General Internal Medicine 02/01/23 documented as of this encounter
--- OUTSIDE RECORDS SUMMARY | 2025-01-10 08:59 | XMS_ITS | Encounter Summary ---
Author Organization [facility] Address [address] [place] [address] Care Team Providers Care Roller Coaster Designer Name Role Phone Kuldeep Durant MD Primary Care Provider [phone] Hever Caal MD Primary Care Provider [phone] Hever Caal MD Primary Care Provider [phone] Encounter Details Date Type Department Care Team (Late st Contact Info) Description 03/22/2023 Orders Only [facility] [address] [place] [phone] Maryanne Morales PA [address] [place] [address] [place] [address] Social History Tobacco Use Types Packs/Day Years Used Date Smoking Tobacco: Never Assessed Sex and Gender Information Value Date Recorded Sex Assigned at Not on file Legal Sex Male 7:22 PM EDT Gender Identity Not on file Sexual Orientation Not on file documented as of this encounter Miscellaneous Notes * Result Encounter Note - MISHEL Domingo - 03/22/2023 8:05 AM EDT When able, please call to see if final TB test is back as it should be by now. Thanks! * Result Encounter Note - MISHEL Domingo - 03/22/2023 8:05 AM EDT TB gold negative. Thanks! documented in this encounter Plan of Treatment Upcoming Encounters Date Type Department Care Team (Late st Contact Info) Description 01/16/2025 10:50 AM EDT Office Visit [facility] [address] [place] [address] Prerna Salazar MD [address] [place] [address] 05/14/2025 11:25 AM EST Office Visit [facility] [address] [place] [phone] Mary Brunson MD [address] [place] [address] documented as of this encounter Procedures Procedure Name Priority Date/Time Associated Diagnosis Comments QUANTIFERON TB GOLD Routine 03/04/2023 8 :05 AM EDT documented in this encounter Results * QUANTIFERON TB GOLD (03/04/2023 8:05 AM EDT) Blood Venous blood specimen / Unknown Maryanne Morales RI LAB BLOOD ORDERABLES Final Re sult documented in this encounter Visit Diagnoses Not on filedocumented in this encounter Care Teams Roller Coaster Designer Relationship Specialty Start Date End Date Kuldeep Durant MD PCP - General Cardiology 12/28/22 12/27/23 Hever Caal MD PCP - General Internal Medicine 12/28/23 01/07/25 Hever Caal MD [address] [place] [address] PCP - General Internal Medicine 01/08/25 documented as of this encounter
--- OUTSIDE RECORDS SUMMARY | 2025-01-10 08:59 | XMS_ITS | Encounter Summary ---
Author Organization [employer] tem Address [facility] [id number] [address] [place] [address] Care Team Providers Care Public Works Manager Name Role Phone Hever Caal DO Primary Care Provider Encounter Details Date Type Department Care Team ([facility] Contact Info) Description 08/28/2024 [facility] - [facility] [address] [place] [address] Ref Prov, [place] [address] Social History Tobacco Use Types Packs/Day Years [...] Encounters Date Type Department Care Team ([facility] Contact Info) Description 04/05/2025 10:15 AM EDT Office Visit [facility] Internal Medicine - Family Medicine [address] [place] [address] Hever Caal DO [address] [place] [address] 06/11/2025 1:15 PM EST Office Visit [facility] [address] [place] [address] [place] [address] Alfonzo Lucero MD [address] [place] [address] documented as of this encounter Procedures Procedure Name Priority Date/Time Associated Diagnosis Comments EXTERNAL PSYCH THERAPIST, CGM SYS Routine 08/27/2024 8:48 AM EST documented in this encounter Results * EXTERNAL PSYCH THERAPIST, CGM SYS (08/27/2024 8:48 AM EST) us Not In System Ref Prov DE MISCELLANEOUS SERVICES Final Result MANUALLY TRANSCRIBED RESULTS documented in this encounter Visit Diagnoses Not on filedocumented in this encounter Additional Health Concerns Assessment Noted Time PHQ-9 Depression Total Score: 0 07/31/19 25 3:34 PM EST A Body Mass Index follow-up plan has been documented for the patient 01/26/2024 3:52 PM EDT documented as of this encounter Care Teams Public Works Manager Relationship Specialty Start Date End Date Hever Caal DO [address] [place] [address] PCP - General Internal Medicine 02/01/23 documented as of this encounter
--- OUTSIDE RECORDS SUMMARY | 2025-01-10 08:59 | XMS_ITS | Encounter Summary ---
Author Organization [employer] s tem Address [id number] [address] [place] [address] Care Team Providers Care Prototype Special Build Name Role Phone Hever Caal DO Primary Care Provider [phone] Reason for Visit * Reason Onset Date Comments Med Refill 02/13/2024 Encounter Details Date Type Department Care Team ([facility] Contact Info) Description 02/13/2024 Refill [facility] Internal Medicine - Family Medicine [address] [place] [address] Claudette De La Rosa CMA Social History [...] Upcoming Encounters Date Type Department Care Team ([facility] Contact Info) Description 04/05/2025 10:15 AM EDT Office Visit [facility] Internal Medicine - Family Medicine [address] [place] [address] Hever Caal DO [address] [place] [address] 06/11/2025 1:15 PM EST Office Visit [facility] [address] [place] [address] [address] [facility] [phone] Alfonzo Lucero MD [address] [place] [address] documented as of this encounter Visit Diagnoses Not on filedocumented in this encounter Additional Health Concerns Assessment Noted Time PHQ-9 Depression Total Score: 0 02/07/20 24 11:27 AM EDT A Body Mass Index follow-up plan has been documented for the patient 01/26/2024 3:52 PM EDT documented as of this encounter Care Teams Prototype Special Build Relationship Specialty Start Date End Date Hever Caal DO [address] [place] [address] PCP - General Internal Medicine 02/01/23 documented as of this encounter
--- OUTSIDE RECORDS SUMMARY | 2025-01-10 08:59 | XMS_ITS | Encounter Summary ---
Author Organization [employer] Address [id number] [address] [place] [address] Care Team Providers Care Steel Erecting Pusher Name Role Phone Hever Caal Primary Care Provider [phone] Encounter Details Date Type Department Care Team (Late st Contact Info) Description 02/22/2024 Telephone [facility] Internal Medicine - Family Medicine [address] [place] [address] Alverto White CMA Social History Tobacco Use [...] Telephone Encounter - Alverto White CMA - 02/22/2024 11:21 AM EDT I called pt and read Your note. No he has not received a CGM. It was denied by insurance. * Telephone Encounter - Hever Caal DO - 02/22/2024 11:21 AM EDT Message noted. We rechecked, and it is not denied, but approval pending. documented in this encounter Plan of Treatment Upcoming Encounters Date Type Department Care Team (Late st Contact Info) Description 04/05/2025 10:15 AM EDT Office Visit [facility] Internal Medicine - Family Medicine [address] [place] [phone] Hever Caal DO [address] [place] [address] 06/11/2025 1:15 PM EST Office Visit [facility] [address] [place] [address] [place] [phone] Alfonzo Lucero MD [address] [place] [address] documented as of this encounter Visit Diagnoses Not on filedocumented in this encounter Additional Health Concerns Assessment Noted Time PHQ-9 Depression Total Score: 0 02/07/20 24 11:27 AM EDT A Body Mass Index follow-up plan has been documented for the patient 01/26/2024 3:52 PM EDT documented as of this encounter Care Teams Steel Erecting Pusher Relationship Specialty Start Date End Date Hever Caal DO [address] [place] [address] PCP - General Internal Medicine 02/01/23 documented as of this encounter
--- OUTSIDE RECORDS SUMMARY | 2025-01-10 08:59 | XMS_ITS | Encounter Summary ---
Author Organization [facility] Address [address] [place] [address] Care Team Providers Care Wool Spotter Name Role Phone Kuldeep Durant MD Primary Care Provider [phone] Hever Caal MD Primary Care Provider [phone] Hever Caal MD Primary Care Provider [phone] Encounter Details Date Type Department Care Team ([facility] Contact Info) Description 03/07/2023 Abstract [facility] [address] [facility] [address] [facility] [address] [place] [phone] Mary Brunson MD [address] [facility] [address] [place] [address] Social History Tobacco Use Types Packs/Day Years [...] Upcoming Encounters Date Type Department Care Team ([facility] Contact Info) Description 01/16/2025 10:50 AM EDT Office Visit [facility] [address] [facility] [address] [place] [phone] Prerna Salazar MD [address] [facility] [address] [place] [address] 05/14/2025 11:25 AM EST Office Visit [facility] [address] [place] [address] [place] [phone] Mary Brunson MD [address] [place] [address] [place] [address] documented as of this encounter Visit Diagnoses Not on filedocumented in this encounter Care Teams Wool Spotter Relationship Specialty Start Date End Date Kuldeep Durant MD PCP - General Cardiology 12/28/22 12/27/23 Hever Caal MD PCP - General Internal Medicine 12/28/23 01/07/25 Hever Caal MD [address] [place] [address] PCP - General Internal Medicine 01/08/25 documented as of this encounter
--- OUTSIDE RECORDS SUMMARY | 2025-01-10 08:59 | XMS_ITS | Encounter Summary ---
Author Organization [facility] Address [facility] [place]-[id number] [address] [place] [address] Care Team Providers Care Solid State Tester Name Role Phone Hever Caal DO Primary Care Provider [phone] Reason for Referral * Consultation (Routine) - Closed Specialty Diagnoses / Procedures Referred By Contac t Referred To Contact Cardiology Diagnoses Abnormal cardiovascular stress test Hever Caal DO [address] [place] [address] Phone: tel: fax: Rylan Mai MD [address] [place] [address] Phone: tel: fax: Referral ID Status Reason Start Date Expiration Date V isits Requested Visits Authorized [id number] Closed Specialty Services Required 02/25/2023 02/25/2024 4 4 Encounter Details Date Type Department Care Team (Late st Contact Info) Description 02/25/2023 Orders Only [facility] Internal Medicine - Family Medicine [address] [place] [address] Hever Caal DO [address] [place], [place] [phone] Abnormal cardiovascular stress test (Primary Dx) Social History Tobacco Use Types [...] Internal Medicine - Family Medicine [address] [place] [address] Hever Caal DO [address] [place] [address] 06/11/2025 1:15 PM EST Office Visit [facility] [address] [place] [address] [place] [address] Alfonzo Lucero MD [address] [place] [address] Scheduled Referrals Name Type Priority Associated Diagnoses Orde r Schedule Ambulatory referral to Cardiology Outpatient Referral Routine Abnormal cardiovascular stress test 1 Occurrences starting 02/25/2023 until 02/26/2024 documented as of this encounter Visit Diagnoses Diagnosis Abnormal cardiovascular stress test- Primary Other nonspecific abnormal cardiovascular system function study documented in this encounter Additional Health Concerns Assessment Noted Time PHQ-9 Depression Total Score: 0 02/17/20 2:45 PM EDT documented as of this encounter Care Teams Solid State Tester Relationship Specialty Start Date End Date Hever Caal DO [address] [place] [address] PCP - General Internal Medicine 02/01/23 documented as of this encounter
== END 2025-01-10 08:54 | disposition home or self-care (01) ==
LOC: LAB 08:54
PROVIDERS: PCP Internal Medicine; Visit Provider Dermatology
DX: L40.0 Psoriasis vulgaris (principal)
CPT/HCPCS: 36415; 86480